=== PATIENT | female | born 1945 | race Two or more races ===

== ENCOUNTER 2017-09-13 23:01 | Emergency (ER) | payer MEDICAID ==
[~2017-09-13] VITALS: Ht 157.5 cm; Wt 56.7 kg
[2017-09-13 23:30] VITALS: BP 225/88
--- NOTE | 2017-09-13 23:59 | Emergency Room Report ---
History of Present Illness General Chief Complaint: Abdominal Pain Source: Patient, Family Member Present Illness HPI 72-year-old female with history of end-stage renal disease on dialysis Friday, last dialysis Friday, p/w abdominal pain and diarrhea for 4 days. Patient points to epigastric region, burning, also radiating to back,, intermittent. No relieving or exacerbating factors some nausea no vomiting Multiple episodes of watery diarrhea, 1 episode of bloody mucus Has had a history of cholecystectomy. Patient states that she has had transabdominal pain multiple times in the past. No recent antibiotics or recent travel Allergies: Coded Allergies: PENICILLINS (Verified Allergy, Unknown, 09/13/17) Patient History Past Medical History: see triage record Past Surgical History: none Pertinent Family History: none Now: No : 8 Para: 8 Reviewed Nursing Documentation: PMH: Agreed; PSxH: Agreed Nursing Documentation-PMH Hx Cardiac Problems: No Hx Hypertension: Yes Hx Diabetes: Yes Hx Dialysis: Yes - M/W/F Review of Systems All Other Systems: negative except mentioned in HPI Physical Exam Vital Signs Date Time Temp Pulse Resp B/P (MAP) Pulse Ox O2 Delivery O2 Flow Rate FiO2 09/13/17 23:11 98.5 84 18 229/82 92 Room Air 98.4 Sp02 EP Interpretation: reviewed, normal General Appearance: alert, GCS 15, non-toxic, moderate distress Head: normocephalic, atraumatic Eyes: bilateral eye normal inspection, bilateral eye PERRL, bilateral eye EOMI ENT: normal ENT inspection, normal pharynx, normal voice, moist mucus membranes Neck: normal inspection, full range of motion, supple Respiratory: normal inspection, lungs clear, normal breath sounds, no respiratory distress, no retraction, no wheezing, speaking full sentences, chest symmetrical Cardiovascular #1: normal inspection, regular rate, rhythm, no edema, normal capillary refill Cardiovascular #2: 2+ radial (R), 2+ radial (L) Gastrointestinal: other - Epigastric tenderness, left lower quadrant tenderness , no guarding no rebound, hyperactive bowel sounds Musculoskeletal: normal inspection, back normal, normal range of motion, non- tender Neurologic: normal inspection, alert, oriented x3, responsive, motor strength/ tone normal, sensory intact, normal gait, speech normal Psychiatric: normal inspection, judgement/insight normal, memory normal Skin: normal inspection, normal color, no rash, warm/dry, well hydrated, normal turgor Medical Decision Making Diagnostic Impression: Primary Impression: Abdominal pain ER Course 72-year-old female with abdominal pain Differential Diagnosis: Gastritis, gastroenteritis, cholecystitis, appendicitis, diverticulitis, SBO, mesenteric ischemia, cardiac, UTI/pyelo Plan: Basic labs, ua, ekg pain control, IVF CT abdopelvis ER course: Pain improved. Repeat abdominal exam is nontender. Ct neg Pt with high bp tx with hydralazine although pt asymptomatic, likely high baseline 2/2 to esrd dc home Disposition: Patient is to be discharged to home. Patient is instructed to follow up with their primary care doctor within 5 days. Strict return precautions discussed with patient such as fever, chills, worsening/severe abdominal pain, nausea, vomiting, black or bloody stools, which may indicate severe illness. Patient verbalizes understanding and agrees with plan. Please note that this Emergency Department Report was dictated using [employer] technology software, occasionally this can lead to erroneous entry secondary to interpretation by the dictation equipment EKG Diagnostic Results EP Interpretation: Yes Rate: normal Rhythm: NSR ST Segments: No acute changes ASA given to patient: No Rhythm Strip EP Interpretation: Yes Rate: 70 Rhythm: NSR, no PVCs, no ectopy Laboratory Tests Test 09/13/17 23:27 09/13/17 23:30 09/13/17 23:50 Lactic Acid Level 1.30 mmol/L (0.66-2.22) Urine Color Pale yellow Urine Appearance Clear Urine pH 9 (4.5-8.0) Urine Specific [place] 1.015 (1.005-1.035) Urine Protein 3+ (NEGATIVE) H Urine Glucose (UA) 2+ (NEGATIVE) H Urine Ketones Negative (NEGATIVE) Urine Occult Blood 2+ (NEGATIVE) H Urine Nitrite Negative (NEGATIVE) Urine Bilirubin Negative (NEGATIVE) Urine Urobilinogen Normal MG/DL (0.0-1.0) Urine Leukocyte Esterase 1+ (NEGATIVE) H Urine RBC 5-10 /HPF (0 - 2) H Urine WBC 2-4 /HPF (0 - 2) Urine Squamous Epithelial Cells Occasional /LPF Urine Bacteria Few /HPF (NONE) White Blood Count 4.7 K/UL (4.8-10.8) L Red Blood Count 4.37 M/UL (4.20-5.40) Hemoglobin 12.6 G/DL (12.0-16.0) Hematocrit 38.8 % (37.0-47.0) Mean Corpuscular Volume 89 FL (80-99) Mean Corpuscular Hemoglobin 28.8 PG (27.0-31.0) Mean Corpuscular Hemoglobin Concent 32.4 G/DL (32.0-36.0) Red Cell Distribution Width 13.3 % (11.6-14.8) Platelet Count 194 K/UL (150-450) Mean Platelet Volume 7.8 FL (6.5-10.1) Neutrophils (%) (Auto) 58.7 % (45.0-75.0) Lymphocytes (%) (Auto) 27.2 % (20.0-45.0) Monocytes (%) (Auto) 8.6 % (1.0-10.0) Eosinophils (%) (Auto) 4.3 % (0.0-3.0) H Basophils (%) (Auto) 1.1 % (0.0-2.0) Sodium Level 140 MMOL/L (136-145) Potassium Level 4.2 MMOL/L (3.5-5.1) Chloride Level 102 MMOL/L (98-107) Carbon Dioxide Level 29 MMOL/L (21-32) Anion Gap 9 mmol/L (5-15) Blood Urea Nitrogen 24 mg/dL (7-18) H Creatinine 5.9 MG/DL (0.55-1.30) H Estimate Glomerular Filtration Rate mL/min (>60) Glucose Level 204 MG/DL (74-106) H Calcium Level 9.1 MG/DL (8.5-10.1) Total Bilirubin 0.4 MG/DL (0.2-1.0) Aspartate Amino Transferase (AST) 14 U/L (15-37) L Alanine Aminotransferase (ALT) 14 U/L (12-78) Alkaline Phosphatase 143 U/L (46-116) H Total Creatine Kinase 42 U/L (26-308) Troponin I 0.014 ng/mL (0.000-0.056) Pro-B-Type Natriuretic Peptide 57454 pg/mL (0-125) H Total Protein 7.2 G/DL (6.4-8.2) Albumin 3.4 G/DL (3.4-5.0) Globulin 3.8 g/dL Albumin/Globulin Ratio 0.9 (1.0-2.7) L CT/MRI/US Diagnostic Results CT/MRI/US Diagnostic Results : Imaging Test Ordered: CT ABDO PELVI Impression CT ABDOMEN & PELVIS Without Contrast: No appendicitis, SBO, or diverticulitis. Small free fluid. No hydronephrosis or ureteral calculus. Mildly thickened bladder which may be underdistention versus cystitis. Absent gallbladder. No radiopaque choledocholithiasis. Pancreatic postop changes. Small pleural effusions. Last Vital Signs Date Time Temp Pulse Resp B/P (MAP) Pulse Ox O2 Delivery O2 Flow Rate FiO2 09/13/17 23:11 98.5 84 18 229/82 92 Room Air 98.4 Disposition: HOME, SELF-CARE Condition: Improved Xi Jackson M.D. Sep 13, 2017 23:59
[2017-09-14] MEDS ORDERED: Morphine Sulfate 4mg/ml Inj IVP ONE
[2017-09-14 00:24] LABS: BASOPHILS % (AUTO) 1.1 % (0.0-2.0); EOSINOPHILS % (AUTO) 4.3 % (0.0-3.0); HEMATOCRIT 38.8 % (37.0-47.0); HEMOGLOBIN 12.6 G/DL (12.0-16.0); LYMPHOCYTES % (AUTO) 27.2 % (20.0-45.0); MEAN CORPUSCULAR VOLUME 89 FL (80-99); MONOCYTES % (AUTO) 8.6 % (1.0-10.0); NEUTROPHILS % (AUTO) 58.7 % (45.0-75.0); PLATELET COUNT 194 K/UL (150-450); RED BLOOD COUNT 4.37 M/UL (4.20-5.40); RED CELL DISTRIBUTION WIDTH 13.3 % (11.6-14.8); WHITE BLOOD COUNT 4.7 K/UL (4.8-10.8)
[2017-09-14 00:25] LABS: APPEARANCE,URINE CLEAR; BILIRUBIN, URINE NEGATIVE (NEGATIVE); COLOR,URINE PALE YELLOW; GLUCOSE, URINE (UA) 2+ (NEGATIVE); KETONES,URINE NEGATIVE (NEGATIVE); LEUKOCYTE ESTERASE ,URINE 1+ (NEGATIVE); NITRITE,URINE NEGATIVE (NEGATIVE); PH,URINE 9 (4.5-8.0); PROTEIN,URINE 3+ (NEGATIVE); UROBILINOGEN,URINE NORMAL MG/DL (0.0-1.0)
[2017-09-14 00:30] VITALS: BP 235/71
[2017-09-14 00:39] LABS: ANION GAP 9 mmol/L (5-15); BLOOD UREA NITROGEN 24 mg/dL (7-18); CALCIUM 9.1 MG/DL (8.5-10.1); CARBON DIOXIDE 29 MMOL/L (21-32); CHLORIDE 102 MMOL/L (98-107); CREATININE 5.9 MG/DL (0.55-1.30); POTASSIUM 4.2 MMOL/L (3.5-5.1); SODIUM 140 MMOL/L (136-145)
[2017-09-14 00:43] LABS: ALANINE AMINOTRANSFERASE 14 U/L (12-78); ALBUMIN 3.4 G/DL (3.4-5.0); ALBUMIN/GLOBULIN RATIO 0.9 (1.0-2.7); ALKALINE PHOSPHATASE 143 U/L (46-116); ASPARTATE AMINO TRANSFERASE 14 U/L (15-37); BILIRUBIN,TOTAL 0.4 MG/DL (0.2-1.0); CREATINE KINASE 42 U/L (26-308)
[2017-09-14] MEDS ORDERED: PEPCID40 MG PO (01:19)
[2017-09-14 01:30] VITALS: BP 205/68
[2017-09-14] MEDS ORDERED: Dicyclomine HCl 10mg/5ml oral soln ORAL ONE (01:30)
[2017-09-14] MEDS ORDERED: Mylanta II UD 30ml ORAL ONE (01:30)
[2017-09-14] MEDS ORDERED: Lidocaine 2% Visc 15ml soln ORAL ONE (01:30)
[2017-09-14] MEDS ORDERED: ZOFRAN ODT4 MG ORAL (02:24)
[2017-09-14 02:25] VITALS: BP 210/70
[2017-09-14 02:37] VITALS: BP 210/70
--- NOTE | 2017-09-14 11:02 | Diagnostic Imaging Report ---
Indication: Left-sided abdominal pain, pressure in back Technique: Spiral acquisitions obtained through the abdomen and pelvis. No oral contrast utilized, per emergency room physician request No IV contrast utilized, per emergency room physician request.. Multiplanar reconstructions were generated. Total dose length product 645.46 mGycm. CTDIvol(s) 13.88 mGy. Dose reduction achieved using automated exposure control Comparison: None Findings: Normal appendix. There is questionably wall thickening of the distal sigmoid colon. No definite evidence of diverticulosis or diverticulitis. No small bowel distention. No free or loculated intraperitoneal air is evident. There is a small amount of fluid within the pelvis.. The distal esophagus, stomach, duodenum are unremarkable. Lack of IV contrast limits assessment of the solid organs. The liver is unremarkable. The gallbladder is not visualized, suspect surgically absent. No biliary ductal dilatation. The pancreatic body and tail are not evident, surgically resected. An eggshell calcification is seen in the expected region of the pancreatic tail. The spleen, adrenals are unremarkable. The kidneys are atrophic bilaterally, demonstrate nonspecific perinephric fat stranding. No retroperitoneal or mesenteric mass or adenopathy. No pelvic mass or adenopathy. There are uterine arcuate artery calcifications. The included lung bases demonstrate posterior dependent atelectatic changes. There are bilateral pleural effusions. The bones demonstrate degenerative spondylosis changes. Impression: Bilateral small pleural effusions. Resultant compressive and dependent pulmonary atelectasis Equivocal mild distal colon wall thickening, if real could indicate mild colitis changes Trace free intraperitoneal fluid within the pelvis. Nonspecific, but not physiologic in a postmenopausal female No acute abdominal process otherwise Evidence of prior distal pancreatectomy Evidence of prior cholecystectomy Eggshell calcification in the pancreatic surgical bed, probably postinflammatory Atrophic bilateral kidneys Other findings as noted including arcuate artery uterine calcifications, degenerative spondylosis. This agrees with the preliminary interpretation provided overnight by [facility] teleradiology service. The CT scanner at is accredited by the [employer] and the scans are performed using protocols designed to limit radiation exposure to as low as reasonably achievable to attain images of sufficient resolution adequate for diagnostic evaluation.
--- NOTE | 2017-09-14 11:04 | Diagnostic Imaging Report ---
Indication: Chest pain Technique: One view of the chest Comparison: none Findings: There is bilateral interstitial edema. The heart is borderline enlarged. No definite effusions; small pleural effusions described on recent CT scan are not visible on chest radiograph. No definite focal airspace consolidation. The aorta is tortuous and calcified. Calcification projecting in the left upper quadrant is also seen on CT scan. Impression: Mild bilateral interstitial edema
--- NOTE | 2017-09-15 21:24 | Cardiology Report ---
APPROVED REPORT EKG Measurement Heart [id number] CT [id number] [id number] Normal sinus rhythm Cannot rule out Anterior infarct, age undetermined Abnormal ECG
== END 2017-09-14 02:37 | disposition home or self-care (01) ==
LOC: EMR 23:55
DX: R10.9 Unspecified abdominal pain (principal); E11.22 Type 2 diabetes mellitus with diabetic chronic kidney disease; I12.0 Hypertensive chronic kidney disease with stage 5 chronic kidney disease or end stage renal disease; N18.6 End stage renal disease; Z99.2 Dependence on renal dialysis; Z88.0 Allergy status to penicillin
CPT/HCPCS: 36415; 71045; 74176; 80053; 81003; 82550; 83605; 83880; 84484; 85025; 87040; 93005; 96374; 96375; 99284; J0360; J2270; J2405; S0028

== ENCOUNTER 2018-03-17 12:57 | Inpatient (IN) | payer MEDICAID ==
[~2018-03-17] VITALS: Ht 162.6 cm; Wt 52.2 kg
[~2018-03-17 12:57] MED LIST: PEPCID40 MG PO; ZOFRAN ODT4 MG ORAL
[2018-03-17] MEDS ORDERED: HYDRALAZINE HCL50 MG ORAL (13:15)
[2018-03-17] MEDS ORDERED: NIFEDIPINE ER60 M3 ORAL (13:15)
[2018-03-17] MEDS ORDERED: METOPROLOL SUCC25 MG ORAL (13:15)
--- NOTE | 2018-03-17 13:38 | Emergency Room Report ---
History of Present Illness General Chief Complaint: Hypertension Source: Patient, Family Member (Henrietta Rock DO) Present Illness HPI Patient present with complaints of ongoing high blood pressure Patient was recently hospitalized at another facility She had alteration of her current medications including increase of hydralazine Now she was having increased headaches dizziness blood pressure was remaining elevated Patient has dialysis Friday's Did have a full dialysis on Friday presents today with increased blood pressure (Henrietta Rock DO) Allergies: Coded Allergies: PENICILLINS (Verified Allergy, Unknown, 09/13/17) Patient History Past Medical History: see triage record Pertinent Family History: none Last Menstrual Period: na Reviewed Nursing Documentation: PMH: Agreed; PSxH: Agreed (Henrietta Rock DO) Nursing Documentation-PMH Past Medical History: No History, Except For Hx Cardiac Problems: No Hx Hypertension: Yes Hx Diabetes: Yes Hx Dialysis: Yes - M/W/F (Henrietta Rock DO) Review of Systems All Other Systems: negative except mentioned in HPI (Henrietta Rock DO) Physical Exam Vital Signs Date Time Temp Pulse Resp B/P (MAP) Pulse Ox O2 Delivery O2 Flow Rate FiO2 03/17/18 13:00 98.8 77 18 219/84 98 Room Air 98.8 Sp02 EP Interpretation: reviewed, normal General Appearance: well appearing, no apparent distress Head: normocephalic, atraumatic Eyes: bilateral eye PERRL, bilateral eye EOMI ENT: hearing grossly normal, normal pharynx, TMs + canals normal, uvula midline Neck: full range of motion, supple, no meningismus, no bony tend Respiratory: lungs clear, normal breath sounds, no rhonchi, no respiratory distress, no retraction, no accessory muscle use Cardiovascular #1: normal peripheral pulses, regular rate, rhythm, no edema, no gallop, no JVD, no murmur Gastrointestinal: normal bowel sounds, non tender, soft, no mass, no organomegaly, non-distended, no guarding, no hernia, no pulsatile mass, no rebound Genitourinary: no CVA tenderness Musculoskeletal: normal inspection Neurologic: oriented x3, responsive, building cleaning supervisor III-XII nml as tested, motor strength/ tone normal, sensory intact Psychiatric: mood/affect normal Skin: normal color, no rash, warm/dry, palpation normal, other - Dialysis shunt right upper arm AV fistula Lymphatic: normal inspection, no adenopathy (Henrietta Rock DO) Procedures Critical Care Time Critical Care Time 40 minutes for hypertensive emergency, requiring acute care and multiple revaluation, not including any procedural time (Henrietta Rock DO) Critical Care Time Patient had a critical medical condition which untreated could potentially result in life or limb threatening injury. Total critical care time excluding procedures was approximately 45 minutes. (Bo Byrne MD) Medical Decision Making Diagnostic Impression: Primary Impression: Hypertensive urgency, malignant Additional Impression: Renal failure ER Course Patient is a fairly complex patient with multiple differential to consideration including but not limited to cardiac cardiopulmonary and vascular emergencies Given the patient's headache there are no focal findings patient has appropriate neurological exam CT imaging has not been obtained emergently However patient's blood pressure requires acute intervention (Henrietta Rock DO) ER Course Patient was seen by Dr. Henrietta Goldman and signed out to me for final disposition. I have also evaluated the patient. Patient presents emergency department today with a headache and elevated blood pressure. Apparently patient has been admitted in the past but was given oral medications which unfortunately is not controlled blood pressure. Patient blood pressure was over 200 on arrival. Patient has received multiple doses of hydralazine and blood pressure remained high. We'll continue to try to control patient's blood pressure however patient will require admission. Patient's head CT was negative per laboratory workup is consistent renal failure. Given the patient' s unassigned patient does not have a primary care physician here. Dr. Henrietta Johnson nutrition professor. We have contacted Dr. Henrietta Johnson for admission on the patient. Labs Test 03/17/18 13:40 03/17/18 14:43 White Blood Count 6.1 K/UL (4.8-10.8) Red Blood Count 4.32 M/UL (4.20-5.40) Hemoglobin 12.3 G/DL (12.0-16.0) Hematocrit 38.1 % (37.0-47.0) Mean Corpuscular Volume 88 FL (80-99) Mean Corpuscular Hemoglobin 28.5 PG (27.0-31.0) Mean Corpuscular Hemoglobin Concent 32.3 G/DL (32.0-36.0) Red Cell Distribution Width 13.1 % (11.6-14.8) Platelet Count 182 K/UL (150-450) Mean Platelet Volume 7.9 FL (6.5-10.1) Neutrophils (%) (Auto) 69.7 % (45.0-75.0) Lymphocytes (%) (Auto) 19.2 % (20.0-45.0) Monocytes (%) (Auto) 7.2 % (1.0-10.0) Eosinophils (%) (Auto) 2.9 % (0.0-3.0) Basophils (%) (Auto) 1.0 % (0.0-2.0) Troponin I 0.013 ng/mL (0.000-0.056) Sodium Level 138 MMOL/L (136-145) Potassium Level 5.4 MMOL/L (3.5-5.1) Chloride Level 101 MMOL/L (98-107) Carbon Dioxide Level 25 MMOL/L (21-32) Anion Gap 12 mmol/L (5-15) Blood Urea Nitrogen 33 mg/dL (7-18) Creatinine 5.6 MG/DL (0.55-1.30) Estimat Glomerular Filtration Rate mL/min (>60) Glucose Level 131 MG/DL (74-106) Calcium Level 10.1 MG/DL (8.5-10.1) (Bo Byrne MD) CT/MRI/US Diagnostic Results CT/MRI/US Diagnostic Results : Imaging Test Ordered: Head CT: Negative (Bo Byrne MD) Last Vital Signs Date Time Temp Pulse Resp B/P (MAP) Pulse Ox O2 Delivery O2 Flow Rate FiO2 03/17/18 13:00 98.8 77 18 219/84 98 Room Air 98.8 (Henrietta Rock DO) Status: improved (Bo Byrne MD) Disposition: ADMITTED INPATIENT Condition: Serious Henrietta Rock DO Mar 17, 2018 13:38 Bo Byrne MD Mar 17, 2018 15:37
[2018-03-17] MEDS ORDERED: Nitroglycerin 2% oint pkt TOPIC ONE (13:45)
--- NOTE | 2018-03-17 14:02 | Diagnostic Imaging Report ---
Indication: Chest pain Technique: One view of the chest Comparison: 09/14/2017 Findings: The heart is borderline enlarged. The lungs and pleural spaces are clear. Previously demonstrated interstitial edema is no longer evident Impression: Cardiomegaly. No acute process
[2018-03-17 14:04] VITALS: BP 237/61
[2018-03-17 14:16] LABS: EOSINOPHILS % (AUTO) 2.9 % (0.0-3.0); HEMATOCRIT 38.1 % (37.0-47.0); HEMOGLOBIN 12.3 G/DL (12.0-16.0); LYMPHOCYTES % (AUTO) 19.2 % (20.0-45.0); MEAN CORPUSCULAR VOLUME 88 FL (80-99); MONOCYTES % (AUTO) 7.2 % (1.0-10.0); NEUTROPHILS % (AUTO) 69.7 % (45.0-75.0); PLATELET COUNT 182 K/UL (150-450); RED BLOOD COUNT 4.32 M/UL (4.20-5.40); RED CELL DISTRIBUTION WIDTH 13.1 % (11.6-14.8); WHITE BLOOD COUNT 6.1 K/UL (4.8-10.8)
--- NOTE | 2018-03-17 15:08 | Diagnostic Imaging Report ---
Indications: Headache and dizziness Technique: Spiral acquisitions obtained through the brain. Angled axial and coronal 5 x 5 mm slices were reconstructed. Total dose length product 1357.97 mGycm. CTDI vol(s) 70.38 mGy. Dose reduction achieved using automated exposure control Comparison: None. Findings: Old lacunar infarct versus prominent perivascular space (favor the latter) is seen in the posterior lentiform nucleus on the right. There is mild age-related enlargement of the ventricles and extra axial CSF spaces. Normal calderon-white differentiation. No acute intracranial hemorrhage or edema. No mass effect nor midline shift. Visualized orbits and sinuses are unremarkable. The calvarium is intact. Impression: Age-related changes, as described Old lacunar infarct versus, more likely, prominent perivascular space in the left basal ganglia region Negative for acute intracranial bleed or mass effect The CT scanner at [facility] is accredited by the [employer] and the scans are performed using protocols designed to limit radiation exposure to as low as reasonably achievable to attain images of sufficient resolution adequate for diagnostic evaluation.
[2018-03-17 15:22] LABS: ANION GAP 12 mmol/L (5-15); BLOOD UREA NITROGEN 33 mg/dL (7-18); CALCIUM 10.1 MG/DL (8.5-10.1); CARBON DIOXIDE 25 MMOL/L (21-32); CHLORIDE 101 MMOL/L (98-107); CREATININE 5.6 MG/DL (0.55-1.30); POTASSIUM 5.4 MMOL/L (3.5-5.1); SODIUM 138 MMOL/L (136-145)
[2018-03-17 15:36] LABS: ALANINE AMINOTRANSFERASE 6 U/L (12-78); ALBUMIN 4.1 G/DL (3.4-5.0); ALKALINE PHOSPHATASE 145 U/L (46-116); ASPARTATE AMINO TRANSFERASE 12 U/L (15-37); BILIRUBIN,TOTAL 0.3 MG/DL (0.2-1.0); CKMB 0.8 NG/ML (0.0-3.6); CREATINE KINASE 42 U/L (26-308)
[2018-03-17 15:57] VITALS: BP 189/51
--- NOTE | 2018-03-17 16:43 | Consultation ---
Consult Note Consult Note Chief Complaint: Hypertension Patient present with complaints of ongoing high blood pressure Patient was recently hospitalized at another facility She had alteration of her current medications including increase of hydralazine Now she was having increased headaches dizziness blood pressure was remaining elevated Patient has dialysis Friday's Did have a full dialysis on Friday presents today with increased blood pressure Coded Allergies: PENICILLINS (Verified Allergy, Unknown, 09/13/17) Past Medical History: No History, Except For Hx Cardiac Problems: No Hx Hypertension: Yes Hx Diabetes: Yes Hx Dialysis: Yes - M/W/F Assessment/Plan HTN OOC ESRD BP Meds HD in am Per orders Hermilo Lauren MD Mar 17, 2018 16:43
[2018-03-17] MEDS ORDERED: Minoxidil 2.5mg tab ORAL PRN (16:45)
[2018-03-17 17:23] VITALS: BP 172/52
[2018-03-17] MEDS ORDERED: METOPROLOL TART25 MG ORAL (17:32)
[2018-03-17] MEDS ORDERED: ASPIR 8181 MG ORAL (17:37)
[2018-03-17] MEDS ORDERED: Vancomycin 1 GM in D5W 275 ML IVPB SCH (18:00)
[2018-03-17 20:00] VITALS: BP 141/59
[2018-03-17 22:00] VITALS: BP 142/87
[2018-03-17] MEDS: HydrALAZINE 50mg tab ORAL SCH (22:06)
--- NOTE | 2018-03-17 23:04 | Cardiology Progress Note ---
Assessment/Plan Assessment/Plan The patient is seen and examined, full consult report is dictated. Objective Last 24 Hour Vital Signs Date Time Temp Pulse Resp B/P (MAP) Pulse Ox O2 Delivery O2 Flow Rate FiO2 03/17/18 22:06 142/57 03/17/18 22:00 84 142/87 (105) 03/17/18 20:48 88 141/59 03/17/18 20:00 97.5 88 21 141/59 (86) 97.5 03/17/18 20:00 89 03/17/18 18:47 98.6 93 17 172/52 99 Room Air 98.6 03/17/18 17:23 98.6 93 17 172/52 99 Room Air 98.6 03/17/18 16:56 195/65 03/17/18 16:41 206/110 03/17/18 15:57 98.8 87 15 189/51 99 Room Air 98.8 03/17/18 15:15 210/63 03/17/18 14:37 210/65 03/17/18 14:04 98.8 85 15 237/61 98 Room Air 98.8 03/17/18 14:03 77 18 Room Air 03/17/18 13:38 219/84 03/17/18 13:00 98.8 77 18 219/84 98 Room Air 98.8 Laboratory Tests Test 03/17/18 13:40 03/17/18 14:43 03/17/18 17:20 White Blood Count 6.1 K/UL (4.8-10.8) Red Blood Count 4.32 M/UL (4.20-5.40) Hemoglobin 12.3 G/DL (12.0-16.0) Hematocrit 38.1 % (37.0-47.0) Mean Corpuscular Volume 88 FL (80-99) Mean Corpuscular Hemoglobin 28.5 PG (27.0-31.0) Mean Corpuscular Hemoglobin Concent 32.3 G/DL (32.0-36.0) Red Cell Distribution Width 13.1 % (11.6-14.8) Platelet Count 182 K/UL (150-450) Mean Platelet Volume 7.9 FL (6.5-10.1) Neutrophils (%) (Auto) 69.7 % (45.0-75.0) Lymphocytes (%) (Auto) 19.2 % (20.0-45.0) L Monocytes (%) (Auto) 7.2 % (1.0-10.0) Eosinophils (%) (Auto) 2.9 % (0.0-3.0) Basophils (%) (Auto) 1.0 % (0.0-2.0) Troponin I 0.013 ng/mL (0.000-0.056) C-Reactive Protein, Quantitative < 0.4 mg/dL (0.00-0.90) Sodium Level 138 MMOL/L (136-145) Potassium Level 5.4 MMOL/L (3.5-5.1) H Chloride Level 101 MMOL/L (98-107) Carbon Dioxide Level 25 MMOL/L (21-32) Anion Gap 12 mmol/L (5-15) Blood Urea Nitrogen 33 mg/dL (7-18) H Creatinine 5.6 MG/DL (0.55-1.30) H Estimat Glomerular Filtration Rate mL/min (>60) Glucose Level 131 MG/DL (74-106) H Calcium Level 10.1 MG/DL (8.5-10.1) Total Bilirubin 0.3 MG/DL (0.2-1.0) Aspartate Amino Transf (AST/SGOT) 12 U/L (15-37) L Alanine Aminotransferase (ALT/SGPT) 6 U/L (12-78) L Alkaline Phosphatase 145 U/L (46-116) H Total Creatine Kinase 42 U/L (26-308) Creatine Kinase MB 0.8 NG/ML (0.0-3.6) Creatine Kinase MB Relative Index 1.9 Total Protein 8.4 G/DL (6.4-8.2) H Albumin 4.1 G/DL (3.4-5.0) Globulin 4.3 g/dL Albumin/Globulin Ratio 1.0 (1.0-2.7) Lipase 441 U/L (73-393) H Lactic Acid Level 0.70 mmol/L (0.4-2.0) Van Ingram MD Mar 17, 2018 23:04
[2018-03-17] MEDS ORDERED: Acetaminophen 500mg (ES) tab ORAL PRN (23:15)
[2018-03-17] MEDS ORDERED: ATORVASTATIN CA40 MG ORAL (23:35)
[2018-03-17] MEDS ORDERED: PEPCID AC20 M2 PO (23:36)
[2018-03-18] VITALS: BP 149/66
--- NOTE | 2018-03-18 02:15 | Consultation ---
DATE OF CONSULTATION: 03/17/2018 CARDIOLOGY CONSULTATION CONSULTING PHYSICIAN: Van Ingram M.D. REFERRING PHYSICIAN: Dr. Henrietta Desir. REASON FOR CONSULTATION: Management of accelerated hypertension. HISTORY OF PRESENT ILLNESS: The patient is a very unfortunate 72-year-old lady who presents to the hospital with complaints of dizziness, headaches, and elevated blood pressure. The patient states that her blood pressure has been remained elevated despite receiving hemodialysis. She has history of end-stage renal disease, on hemodialysis on Mondays, Wednesdays, and Fridays. The patient was recently admitted to an outside facility for this same issue. She states that her blood pressure medications include hydralazine 50 mg 3 times a day, metoprolol 25 mg twice daily, and nifedipine extended release 60 mg p.o. daily. She has been compliant with her hemodialysis. She denies any prior history of coronary artery disease, congestive heart failure, or cardiac arrhythmia. PAST MEDICAL HISTORY: End-stage renal disease, hypertension, and diabetes mellitus. PAST FAMILY HISTORY: None. ALLERGIES: Penicillin. SOCIAL HISTORY: Denies any tobacco, alcohol, or illicit drug use. MEDICATIONS: List of medication including aspirin 81 mg p.o. daily, hydralazine 50 mg p.o. three times daily, metoprolol 25 mg twice daily, and nifedipine ER 60 mg p.o. daily. REVIEW OF SYSTEMS: HEENT: She complains of headache, dizziness, and lightheadedness. CONSTITUTIONAL: Denies any fever, chills, night sweats, or weight loss. CARDIOVASCULAR: Denies any chest pain, shortness of breath, PND, orthopnea, leg swelling, syncope, or palpitation. PULMONARY: Denies any cough, hemoptysis, or wheezing. GASTROINTESTINAL: Denies any nausea, vomiting, diarrhea, constipation, abdominal pain, or GI bleed. GENITOURINARY: On hemodialysis on Mondays, Wednesdays, and Fridays. NEUROLOGY: Denies any motor dysfunction, sensory deficit, or altered speech. PHYSICAL EXAMINATION: VITAL SIGNS: Blood pressure at time of arrival to the hospital was 219/84 mmHg, pulse of 77, respirations of 18, temperature of 98.8 degrees Fahrenheit, and O2 saturation 98% on room air. GENERAL: The patient is a very unfortunate 72-year-old female who is awake and alert x4. HEENT: Atraumatic and normocephalic. Anicteric. Pupils are equal, round, and reactive to light and accommodation. Extraocular muscles intact. NECK: JVP is less than 5 centimeter. No carotid bruit. Carotid upstroke is 2+ bilaterally. CARDIOVASCULAR: Normal S1 and S2. Regular rate and rhythm. No murmurs, gallops, or rubs. PMI is at fourth intercostal space in the midclavicular. LUNGS: Clear to auscultation bilaterally. ABDOMEN: Soft, nontender, and nondistended. No hepatosplenomegaly. Positive bowel sounds. EXTREMITIES: No evidence of edema, clubbing, or cyanosis. There is presence of a right upper arm AV fistula ____. LABORATORY FINDINGS: Sodium 138, potassium 5.4, chloride 101, bicarbonate 25, BUN 33, creatinine of 5.6, glucose is 131, calcium is 10.1, and troponin I is 0.013. WBC 6.1, hemoglobin 12.3, hematocrit 38.1, and platelet count is 182,000. Chest x-ray showed cardiomegaly, but no acute cardiopulmonary disease. CT of head showed old lacunar infarct versus prominent prevascular space in the left basal ganglia region. Negative for acute intracranial bleed or mass effect. ASSESSMENT AND PLAN: 1. The patient is a very unfortunate 72-year-old female, seen in Cardiology consultation at the request of Dr. Desir. 2. Accelerated hypertension, most likely due to renal parenchymal disease. We would like to continue the patient's nifedipine, metoprolol, and hydralazine. We will adjust the dose of these medications. In addition, the patient was started on clonidine and minoxidil. Follow the blood pressure during the stay. 3. We will obtain 2D echocardiography for assessment of LV systolic and diastolic function. 4. End-stage renal disease, on hemodialysis 3 days a week. 5. History of diabetes mellitus. The patient will require to be on aspirin and statins. Lipid panel will be done in the morning. 6. I would like to thank, Dr. Desir for allowing me to participate in the care of this patient. Van Ingram M.D. DR: SULAIMAN JOB#: [id number] CC:
[2018-03-18 04:00] VITALS: BP 119/46
[2018-03-18] MEDS: HydrALAZINE 50mg tab ORAL SCH (05:30)
[2018-03-18 06:33] LABS: BASOPHILS % (AUTO) 1.1 % (0.0-2.0); EOSINOPHILS % (AUTO) 2.3 % (0.0-3.0); HEMATOCRIT 36.1 % (37.0-47.0); HEMOGLOBIN 11.9 G/DL (12.0-16.0); LYMPHOCYTES % (AUTO) 25.8 % (20.0-45.0); MEAN CORPUSCULAR VOLUME 88 FL (80-99); MONOCYTES % (AUTO) 8.3 % (1.0-10.0); NEUTROPHILS % (AUTO) 62.6 % (45.0-75.0); PLATELET COUNT 219 K/UL (150-450); RED BLOOD COUNT 4.09 M/UL (4.20-5.40); WHITE BLOOD COUNT 5.8 K/UL (4.8-10.8)
[2018-03-18 07:28] LABS: ALANINE AMINOTRANSFERASE 14 U/L (12-78); ALBUMIN 3.3 G/DL (3.4-5.0); ALBUMIN/GLOBULIN RATIO 0.9 (1.0-2.7); ALKALINE PHOSPHATASE 119 U/L (46-116); ANION GAP 9 mmol/L (5-15); ASPARTATE AMINO TRANSFERASE 10 U/L (15-37); BILIRUBIN,TOTAL 0.4 MG/DL (0.2-1.0); BLOOD UREA NITROGEN 40 mg/dL (7-18); CALCIUM 9.6 MG/DL (8.5-10.1); CARBON DIOXIDE 26 MMOL/L (21-32); CHLORIDE 101 MMOL/L (98-107); CHOLESTEROL 134 MG/DL (< 200); CREATININE 6.7 MG/DL (0.55-1.30); FERRITIN 1052 NG/ML (8-388); GAMMA GLUTAMYL TRANSPEPTIDASE 25 U/L (5-85); HDL CHOLESTEROL 36 MG/DL (40-60); PHOSPHORUS 4.8 MG/DL (2.5-4.9); POTASSIUM 5.3 MMOL/L (3.5-5.1); SODIUM 136 MMOL/L (136-145); TRIGLYCERIDES 141 MG/DL (30-150)
[2018-03-18 07:43] LABS: % IRON SATURATION 45 % (15-50); IRON 89 ug/dL (50-175); TOTAL IRON BINDING CAPACITY 196 ug/dL (250-450)
[2018-03-18 08:00] VITALS: BP 133/57
[2018-03-18] MEDS: Aspirin Baby 81mg ORAL SCH (09:30)
[2018-03-18 12:00] VITALS: BP 134/50
[2018-03-18] MEDS: HydrALAZINE 25mg tab ORAL SCH ×2 (14:00→22:39)
--- NOTE | 2018-03-18 15:45 | Cardiology Report ---
APPROVED REPORT EXAM: Two-dimensional and M-mode echocardiogram with Doppler and color Doppler. INDICATION HYPERTENSIVE HEART DIS M-Mode DIMENSIONS IVSd1.1 (0.7-1.1cm)Left Atrium (MM)2.9 (1.6-4.0cm) LVDd3.8 (3.5-5.6cm)Aortic Root3.3 (2.0-3.7cm) PWd1.2 (0.7-1.1cm)Aortic Cusp Exc.1.0 (1.5-2.0cm) IVSs1.0 cm LVDs2.3 (2.5-4.0cm) PWs1.6 cm Normal left ventricular chamber size, hyper dynamic systolic function and wall motion. Left ventricular ejection fraction estimated to be 60-65 %. Mild left ventricular hypertrophy by 2-D. No evidence of pericardial effusion. All other cardiac chamber sizes are within normal limits. Focal aortic valve sclerosis with adequate cusp excursion. Mildly Thickened mitral valve leaflets with normal excursion. Mildly Mitral annulus and aortic root calcification. Pulmonic valve not well visualized. Normal tricuspid valve structure. . IVC at normal size with physiologic collapse . A color flow and spectral Doppler study was performed and revealed: No aortic regurgitation. Trace mitral regurgitation. Normal left ventricular diastolic function . Mild tricuspid regurgitation. Tricuspid systolic velocities suggests peak right ventricular systolic pressure of 15 mmHg,
[2018-03-18 16:00] VITALS: BP 123/56
--- NOTE | 2018-03-18 16:11 | Cardiology Report ---
APPROVED REPORT EKG Measurement Heart [id number] Normal sinus rhythm Abnormal ECG
[2018-03-18 20:00] VITALS: BP 140/60
[2018-03-18] MEDS: Atorvastatin 20mg tab ORAL SCH (21:18)
--- NOTE | 2018-03-18 21:26 | Nephrology Progress Note ---
Assessment/Plan Problem List: (1) ESRD (end stage renal disease) on dialysis (2) Hypertensive urgency, malignant Assessment HTN OOC- ESRD Plan BP Meds adjusted HD 03/18 then 03/20 Per orders waiting for cultures normal echo Subjective ROS Limited/Unobtainable: No Objective Objective Last 24 Hour Vital Signs Date Time Temp Pulse Resp B/P (MAP) Pulse Ox O2 Delivery O2 Flow Rate FiO2 03/18/18 21:18 140/89 03/18/18 16:00 98.1 75 20 123/56 (78) 98 98.1 03/18/18 16:00 73 03/18/18 14:29 Room Air 03/18/18 14:00 145/56 03/18/18 14:00 145/56 03/18/18 12:00 71 03/18/18 12:00 97.5 68 20 134/50 (78) 98 97.5 03/18/18 09:00 Room Air 03/18/18 08:00 97.5 71 20 133/57 (82) 99 97.5 03/18/18 08:00 75 03/18/18 05:30 119/46 03/18/18 05:00 119/46 03/18/18 04:00 69 03/18/18 04:00 97.7 68 20 119/46 (70) 98 97.7 03/18/18 00:00 97.5 81 20 149/66 (93) 95 97.5 03/18/18 00:00 84 03/17/18 23:28 144/53 03/17/18 23:00 Room Air 03/17/18 22:06 142/57 03/17/18 22:00 84 142/87 (105) Intake and Output 03/17/18 03/18/18 19:00 07:00 Intake Total 100 ml Output Total 300 ml Balance -200 ml Intake Oral 100 ml Output Urine Total 300 ml # Voids 1 2 Laboratory Tests 03/17/18 23:40: Troponin I 0.034 03/18/18 05:10: White Blood Count 5.8, Red Blood Count 4.09L, Hemoglobin 11.9L, Hematocrit 36.1L , Mean Corpuscular Volume 88, Mean Corpuscular Hemoglobin 29.2, Mean Corpuscular Hemoglobin Concent 33.1, Red Cell Distribution Width 13.0, Platelet Count 219, Mean Platelet Volume 7.4, Neutrophils (%) (Auto) 62.6, Lymphocytes (% ) (Auto) 25.8, Monocytes (%) (Auto) 8.3, Eosinophils (%) (Auto) 2.3, Basophils ( %) (Auto) 1.1, Sodium Level 136, Potassium Level 5.3H, Chloride Level 101, Carbon Dioxide Level 26, Anion Gap 9, Blood Urea Nitrogen 40H, Creatinine 6.7H, Estimat Glomerular Filtration Rate , Glucose Level 122H, Hemoglobin A1c 6.3H, Uric Acid 4.7, Calcium Level 9.6, Phosphorus Level 4.8, Magnesium Level 2.0, Iron Level 89, Total Iron Binding Capacity 196L, Percent Iron Saturation 45, Unsaturated Iron Binding 107L, Ferritin 1052H, Total Bilirubin 0.4, Gamma Glutamyl Transpeptidase 25, Aspartate Amino Transf (AST/SGOT) 10L, Alanine Aminotransferase (ALT/SGPT) 14, Alkaline Phosphatase 119H, Pro-B-Type Natriuretic Peptide [id number], Total Protein 7.0, Albumin 3.3L, Globulin 3.7, Albumin/Globulin Ratio 0.9L, Triglycerides Level 141, Cholesterol Level 134, LDL Cholesterol 70, HDL Cholesterol 36L, Cholesterol/HDL Ratio 3.7, Lipase 129, Vitamin B12 Level 824, Folate 6.0L, Thyroid Stimulating Hormone (TSH) 1.271 Height (Feet): 5 Height (Inches): 4.00 Weight (Pounds): 118 General Appearance: other - feels better Cardiovascular: normal rate Respiratory/Chest: decreased breath sounds Abdomen: soft Hermilo Lauren MD Mar 18, 2018 21:26
--- NOTE | 2018-03-18 23:00 | History and Physical Report ---
DATE OF ADMISSION: 03/17/2018 HISTORY OF PRESENT ILLNESS: The patient has end-stage renal disease, on hemodialysis, comes with hypertensive urgency. Systolic blood pressure is 220/110. The patient also had headache and is going to be admitted to telemetry floor. The patient speaks [place] and is admitted for hypertensive malignancy and the patient has renal failure. The patient also had vomiting as well as nausea for one day. The patient denies vision changes. Denies blurry vision. Denies diplopia. Denies rectal bleeding. Denies abdominal pain. Denies dizziness. PAST MEDICAL HISTORY: Hypertension, hyperlipidemia, GERD, end-stage renal disease on hemodialysis. PAST SURGICAL HISTORY: Cholecystectomy related to dialysis access. MEDICATIONS: Lipitor, aspirin, famotidine, hydralazine, and metoprolol. ALLERGIES: To penicillin. SOCIAL HISTORY: Denies smoking, alcohol, or illicit drugs. FAMILY HISTORY: She does have history of hypertension. REVIEW OF SYSTEMS: HEENT: Denies headaches. Denies shortness of breath. Denies cough. CARDIOVASCULAR: Denies chest pain. Denies orthopnea. GASTROINTESTINAL: Does have nausea and vomiting for one day. Denies rectal bleeding. Denies constipation. Does have headaches. EXTREMITIES: Denies pain in lower extremity. 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 She has headache x1 day. PHYSICAL EXAMINATION: VITAL SIGNS: Temperature is 97.7 degrees, pulse 68, blood pressure is recorded as 119/46, much high initially in the ER. HEENT: PERRLA. NECK: Supple. No lymphadenopathy. CHEST: Clear to auscultation. GASTROINTESTINAL: Soft, nontender, and nondistended. No organomegaly. EXTREMITIES: A 1+ edema. Reflexes on both sides. . LABORATORY DATA: WBC of 6.1, hemoglobin 12.3, and platelets 182,000. Sodium 138, potassium 5.4, BUN of 33, creatinine 5.6 with a glucose 131. ASSESSMENT AND PLAN: Hypertensive malignancy, end-stage renal disease on hemodialysis with headache. I have asked Dr. Lauren and Dr. Ingram see the patient for the treatment of the hypertension and the dialysis orders. Henrietta Desir M.D. DR: Ida JOB#: [id number] CC:
--- NOTE | 2018-03-18 23:56 | Cardiology Progress Note ---
Assessment/Plan Assessment/Plan 1. Accelerated hypertension, BP well controlled, continue minoxidil along with the other anti-hypertensive meds. Echo showed normal LVEF at 60% with normal PAP. 2. End-stage renal disease, on hemodialysis 3 days a week. 3. History of diabetes mellitus, continue aspirin and statins. 4. Dyslipidemia with low HDL, continue statins. Subjective Subjective Sinus rhythm at 65. Objective Last 24 Hour Vital Signs Date Time Temp Pulse Resp B/P (MAP) Pulse Ox O2 Delivery O2 Flow Rate FiO2 03/18/18 22:39 158/57 03/18/18 21:18 140/89 03/18/18 21:00 Room Air 03/18/18 20:00 97.9 69 20 140/60 (86) 98 97.9 03/18/18 19:07 76 03/18/18 16:00 98.1 75 20 123/56 (78) 98 98.1 03/18/18 16:00 73 03/18/18 14:29 Room Air 03/18/18 14:00 145/56 03/18/18 14:00 145/56 03/18/18 12:00 71 03/18/18 12:00 97.5 68 20 134/50 (78) 98 97.5 03/18/18 09:00 Room Air 03/18/18 08:00 97.5 71 20 133/57 (82) 99 97.5 03/18/18 08:00 75 03/18/18 05:30 119/46 03/18/18 05:00 119/46 03/18/18 04:00 69 03/18/18 04:00 97.7 68 20 119/46 (70) 98 97.7 03/18/18 00:00 97.5 81 20 149/66 (93) 95 97.5 03/18/18 00:00 84 Intake and Output 03/17/18 03/18/18 19:00 07:00 Intake Total 100 ml Output Total 300 ml Balance -200 ml Intake Oral 100 ml Output Urine Total 300 ml # Voids 1 2 2D Echo: LVEF 60%, Mild LVH, RVSP 15 mmHg Laboratory Tests Test 03/18/18 05:10 03/18/18 21:40 White Blood Count 5.8 K/UL (4.8-10.8) Red Blood Count 4.09 M/UL (4.20-5.40) L Hemoglobin 11.9 G/DL (12.0-16.0) L Hematocrit 36.1 % (37.0-47.0) L Mean Corpuscular Volume 88 FL (80-99) Mean Corpuscular Hemoglobin 29.2 PG (27.0-31.0) Mean Corpuscular Hemoglobin Concent 33.1 G/DL (32.0-36.0) Red Cell Distribution Width 13.0 % (11.6-14.8) Platelet Count 219 K/UL (150-450) Mean Platelet Volume 7.4 FL (6.5-10.1) Neutrophils (%) (Auto) 62.6 % (45.0-75.0) Lymphocytes (%) (Auto) 25.8 % (20.0-45.0) Monocytes (%) (Auto) 8.3 % (1.0-10.0) Eosinophils (%) (Auto) 2.3 % (0.0-3.0) Basophils (%) (Auto) 1.1 % (0.0-2.0) Sodium Level 136 MMOL/L (136-145) Potassium Level 5.3 MMOL/L (3.5-5.1) H Chloride Level 101 MMOL/L (98-107) Carbon Dioxide Level 26 MMOL/L (21-32) Anion Gap 9 mmol/L (5-15) Blood Urea Nitrogen 40 mg/dL (7-18) H Creatinine 6.7 MG/DL (0.55-1.30) H Estimat Glomerular Filtration Rate mL/min (>60) Glucose Level 122 MG/DL (74-106) H Hemoglobin A1c 6.3 % (4.3-6.0) H Uric Acid 4.7 MG/DL (2.6-7.2) Calcium Level 9.6 MG/DL (8.5-10.1) Phosphorus Level 4.8 MG/DL (2.5-4.9) Magnesium Level 2.0 MG/DL (1.8-2.4) Iron Level 89 ug/dL (50-175) Total Iron Binding Capacity 196 ug/dL (250-450) L Percent Iron Saturation 45 % (15-50) Unsaturated Iron Binding 107 ug/dL (112-346) L Ferritin 1052 NG/ML (8-388) H Total Bilirubin 0.4 MG/DL (0.2-1.0) Gamma Glutamyl Transpeptidase 25 U/L (5-85) Aspartate Amino Transf (AST/SGOT) 10 U/L (15-37) L Alanine Aminotransferase (ALT/SGPT) 14 U/L (12-78) Alkaline Phosphatase 119 U/L (46-116) H Pro-B-Type Natriuretic Peptide 35471 pg/mL (0-125) H Total Protein 7.0 G/DL (6.4-8.2) Albumin 3.3 G/DL (3.4-5.0) L Globulin 3.7 g/dL Albumin/Globulin Ratio 0.9 (1.0-2.7) L Triglycerides Level 141 MG/DL (30-150) Cholesterol Level 134 MG/DL (< 200) LDL Cholesterol 70 mg/dL (<100) HDL Cholesterol 36 MG/DL (40-60) L Cholesterol/HDL Ratio 3.7 (3.3-4.4) Lipase 129 U/L (73-393) Vitamin B12 Level 824 PG/ML (193-986) Folate 6.0 NG/ML (8.6-58.9) L Thyroid Stimulating Hormone (TSH) 1.271 uiU/mL (0.358-3.740) C-Reactive Protein, Quantitative < 0.4 mg/dL (0.00-0.90) Objective HEENT: Atraumatic and normocephalic. Anicteric. Pupils are equal, round, and reactive to light and accommodation. Extraocular muscles intact. NECK: JVP is less than 5 centimeter. No carotid bruit. Carotid upstroke is 2+ bilaterally. CARDIOVASCULAR: Normal S1 and S2. Regular rate and rhythm. No murmurs, gallops, or rubs. PMI is at fourth intercostal space in the midclavicular. LUNGS: Clear to auscultation bilaterally. ABDOMEN: Soft, nontender, and nondistended. No hepatosplenomegaly. Positive bowel sounds. EXTREMITIES: No evidence of edema, clubbing, or cyanosis. There is presence of a right upper arm AV fistula . Van Ingram MD Mar 18, 2018 23:56
[2018-03-19] VITALS (7 sets, daily range): BP systolic 117–168; BP diastolic 41–69
[2018-03-19] MEDS: HydrALAZINE 25mg tab ORAL SCH ×3 (05:48→22:00)
[2018-03-19 05:55] LABS: BASOPHILS % (AUTO) 0.9 % (0.0-2.0); EOSINOPHILS % (AUTO) 4.2 % (0.0-3.0); HEMATOCRIT 35.5 % (37.0-47.0); HEMOGLOBIN 11.8 G/DL (12.0-16.0); LYMPHOCYTES % (AUTO) 22.4 % (20.0-45.0); MEAN CORPUSCULAR VOLUME 88 FL (80-99); MONOCYTES % (AUTO) 9.1 % (1.0-10.0); NEUTROPHILS % (AUTO) 63.4 % (45.0-75.0); PLATELET COUNT 189 K/UL (150-450); RED BLOOD COUNT 4.03 M/UL (4.20-5.40); RED CELL DISTRIBUTION WIDTH 12.9 % (11.6-14.8); WHITE BLOOD COUNT 4.8 K/UL (4.8-10.8)
[2018-03-19 05:59] LABS: ALANINE AMINOTRANSFERASE 14 U/L (12-78); ALBUMIN 3.3 G/DL (3.4-5.0); ALBUMIN/GLOBULIN RATIO 0.9 (1.0-2.7); ALKALINE PHOSPHATASE 119 U/L (46-116); ANION GAP 8 mmol/L (5-15); ASPARTATE AMINO TRANSFERASE 15 U/L (15-37); BILIRUBIN,TOTAL 0.5 MG/DL (0.2-1.0); BLOOD UREA NITROGEN 27 mg/dL (7-18); CALCIUM 9.5 MG/DL (8.5-10.1); CARBON DIOXIDE 29 MMOL/L (21-32); CHLORIDE 100 MMOL/L (98-107); CREATININE 5.3 MG/DL (0.55-1.30); PHOSPHORUS 4.4 MG/DL (2.5-4.9); POTASSIUM 5.1 MMOL/L (3.5-5.1); SODIUM 137 MMOL/L (136-145)
[2018-03-19] MEDS: Aspirin Baby 81mg ORAL SCH (08:30)
--- NOTE | 2018-03-19 18:14 | Nephrology Progress Note ---
Assessment/Plan Problem List: (1) ESRD (end stage renal disease) on dialysis (2) Hypertensive urgency, malignant Assessment HTN OOC- ESRD Plan BP Meds adjusted HD 03/18 then 03/20 Per orders waiting for cultures: negative normal echo ? DC in am after HD Subjective ROS Limited/Unobtainable: No Objective Objective Last 24 Hour Vital Signs Date Time Temp Pulse Resp B/P (MAP) Pulse Ox O2 Delivery O2 Flow Rate FiO2 03/19/18 16:00 98.2 18 136/54 (81) 98 98.2 03/19/18 16:00 64 03/19/18 13:58 117/69 03/19/18 13:57 117/69 03/19/18 12:00 98.1 20 117/69 (85) 98 98.1 03/19/18 12:00 62 03/19/18 09:00 Room Air 03/19/18 08:31 70 168/60 03/19/18 08:00 66 03/19/18 08:00 97.3 70 20 168/60 (96) 98 97.3 03/19/18 06:46 139/57 (84) 03/19/18 05:48 160/58 03/19/18 05:48 160/58 03/19/18 04:00 98.0 65 20 160/58 (92) 98 98.0 03/19/18 03:32 59 03/19/18 00:00 96.4 61 20 146/55 (85) 98 96.4 03/18/18 23:33 62 03/18/18 22:39 158/57 03/18/18 21:18 140/89 03/18/18 21:00 Room Air 03/18/18 20:00 97.9 69 20 140/60 (86) 98 97.9 03/18/18 19:07 76 Intake and Output 03/18/18 03/19/18 19:00 07:00 Intake Total 480 ml 275 ml Output Total 2000 ml 150 ml Balance -1520 ml 125 ml Intake Oral 480 ml 275 ml Output Urine Total 150 ml Hemodialysis UF 2000 ml # Voids 2 Current Medications Medications (Trade) Dose Ordered Sig/Oren Route PRN Reason Start Time Stop Time Status Last Admin Dose Admin Acetaminophen (Tylenol) 500 mg Q4H PRN ORAL Mild Pain/Temp > 100.5 03/17/18 23:15 11/15/18 23:14 Aspirin (ASA) 81 mg DAILY ORAL 03/18/18 09:00 04/17/18 08:59 03/19/18 08:30 Atorvastatin Calcium (Lipitor) 20 mg BEDTIME ORAL 03/18/18 21:00 04/17/18 20:59 03/18/18 21:18 Clonidine HCl (Catapres Tab) 0.1 mg Q8HR ORAL 03/18/18 14:00 04/17/18 13:59 03/19/18 05:48 Hydralazine HCl (Apresoline) 25 mg EVERY 8 HOURS ORAL 03/18/18 14:00 04/16/18 21:59 03/19/18 05:48 Minoxidil (Loniten) 2.5 mg Q4H PRN ORAL bp over 170 syst 03/17/18 16:45 04/16/18 16:44 Nifedipine (Procardia XL) 60 mg DAILY ORAL 03/19/18 09:00 04/16/18 20:59 03/19/18 08:31 Ondansetron HCl (Zofran) 4 mg Q6H PRN IVP Nausea & Vomiting 03/18/18 09:15 04/17/18 09:14 Pantoprazole (Protonix) 40 mg EVERY 12 HOURS ORAL 03/17/18 21:00 04/16/18 20:59 03/19/18 08:31 Laboratory Tests 03/18/18 21:40: C-Reactive Protein, Quantitative < 0.4 03/19/18 05:00: White Blood Count 4.8, Red Blood Count 4.03L, Hemoglobin 11.8L, Hematocrit 35.5L , Mean Corpuscular Volume 88, Mean Corpuscular Hemoglobin 29.3, Mean Corpuscular Hemoglobin Concent 33.3, Red Cell Distribution Width 12.9, Platelet Count 189, Mean Platelet Volume 7.5, Neutrophils (%) (Auto) 63.4, Lymphocytes (% ) (Auto) 22.4, Monocytes (%) (Auto) 9.1, Eosinophils (%) (Auto) 4.2H, Basophils (%) (Auto) 0.9, Sodium Level 137, Potassium Level 5.1, Chloride Level 100, Carbon Dioxide Level 29, Anion Gap 8, Blood Urea Nitrogen 27H, Creatinine 5.3H, Estimat Glomerular Filtration Rate , Glucose Level 126H, Calcium Level 9.5, Phosphorus Level 4.4, Total Bilirubin 0.5, Aspartate Amino Transf (AST/SGOT) 15 , Alanine Aminotransferase (ALT/SGPT) 14, Alkaline Phosphatase 119H, Total Protein 7.1, Albumin 3.3L, Globulin 3.8, Albumin/Globulin Ratio 0.9L Height (Feet): 5 Height (Inches): 4.00 Weight (Pounds): 117 General Appearance: no apparent distress Objective no change Hermilo Lauren MD Mar 19, 2018 18:14
[2018-03-19] MEDS: Atorvastatin 20mg tab ORAL SCH (21:10)
--- NOTE | 2018-03-19 21:55 | General Progress Note ---
Assessment/Plan Problem List: (1) Renal failure ICD Codes: N19 - Unspecified kidney failure SNOMED: 57704513 (2) ESRD (end stage renal disease) on dialysis ICD Codes: N18.6 - End stage renal disease; Z99.2 - Dependence on renal dialysis SNOMED: 610229110 (3) Hypertensive urgency, malignant ICD Codes: I16.0 - Hypertensive urgency SNOMED: 202588112 Status: progressing Assessment/Plan hypertensive urgency afebrile azotemia esrd on hd bp is improving Subjective ROS Limited/Unobtainable: Yes Allergies: Coded Allergies: PENICILLINS (Verified Allergy, Unknown, 03/17/18) Patient states feeling chills Objective Last 24 Hour Vital Signs Date Time Temp Pulse Resp B/P (MAP) Pulse Ox O2 Delivery O2 Flow Rate FiO2 03/19/18 20:00 98.3 71 20 123/41 (68) 97 98.3 03/19/18 19:52 70 03/19/18 16:00 98.2 18 136/54 (81) 98 98.2 03/19/18 16:00 64 03/19/18 13:58 117/69 03/19/18 13:57 117/69 03/19/18 12:00 98.1 20 117/69 (85) 98 98.1 03/19/18 12:00 62 03/19/18 09:00 Room Air 03/19/18 08:31 70 168/60 03/19/18 08:00 66 03/19/18 08:00 97.3 70 20 168/60 (96) 98 97.3 03/19/18 06:46 139/57 (84) 03/19/18 05:48 160/58 03/19/18 05:48 160/58 03/19/18 04:00 98.0 65 20 160/58 (92) 98 98.0 03/19/18 03:32 59 03/19/18 00:00 96.4 61 20 146/55 (85) 98 96.4 03/18/18 23:33 62 03/18/18 22:39 158/57 Intake and Output 03/18/18 03/19/18 19:00 07:00 Intake Total 480 ml 275 ml Output Total 2000 ml 150 ml Balance -1520 ml 125 ml Intake Oral 480 ml 275 ml Output Urine Total 150 ml Hemodialysis UF 2000 ml # Voids 2 Laboratory Tests 03/19/18 05:00: White Blood Count 4.8, Red Blood Count 4.03L, Hemoglobin 11.8L, Hematocrit 35.5L , Mean Corpuscular Volume 88, Mean Corpuscular Hemoglobin 29.3, Mean Corpuscular Hemoglobin Concent 33.3, Red Cell Distribution Width 12.9, Platelet Count 189, Mean Platelet Volume 7.5, Neutrophils (%) (Auto) 63.4, Lymphocytes (% ) (Auto) 22.4, Monocytes (%) (Auto) 9.1, Eosinophils (%) (Auto) 4.2H, Basophils (%) (Auto) 0.9, Sodium Level 137, Potassium Level 5.1, Chloride Level 100, Carbon Dioxide Level 29, Anion Gap 8, Blood Urea Nitrogen 27H, Creatinine 5.3H, Estimat Glomerular Filtration Rate , Glucose Level 126H, Calcium Level 9.5, Phosphorus Level 4.4, Total Bilirubin 0.5, Aspartate Amino Transf (AST/SGOT) 15 , Alanine Aminotransferase (ALT/SGPT) 14, Alkaline Phosphatase 119H, Total Protein 7.1, Albumin 3.3L, Globulin 3.8, Albumin/Globulin Ratio 0.9L Height (Feet): 5 Height (Inches): 4.00 Weight (Pounds): 117 Cardiovascular: normal rate Respiratory/Chest: lungs clear Abdomen: soft Henrietta Desir MD Mar 19, 2018 21:55
--- NOTE | 2018-03-19 23:55 | Cardiology Progress Note ---
Assessment/Plan Assessment/Plan 1. Accelerated hypertension, still stage II HTN, continue minoxidil PRN along with clonidine, hydralazine and nifedipine. Echo showed normal LVEF at 60% with normal PAP. 2. End-stage renal disease, on hemodialysis 3 days a week. 3. History of diabetes mellitus, continue aspirin and statins. 4. Dyslipidemia with low HDL, continue statins. Subjective Subjective Sinus rhythm at 65. Objective Last 24 Hour Vital Signs Date Time Temp Pulse Resp B/P (MAP) Pulse Ox O2 Delivery O2 Flow Rate FiO2 03/19/18 22:00 118/51 03/19/18 22:00 118/51 03/19/18 21:00 Room Air 03/19/18 20:00 98.3 71 20 123/41 (68) 97 98.3 03/19/18 19:52 70 03/19/18 16:00 98.2 18 136/54 (81) 98 98.2 03/19/18 16:00 64 03/19/18 13:58 117/69 03/19/18 13:57 117/69 03/19/18 12:00 98.1 20 117/69 (85) 98 98.1 03/19/18 12:00 62 03/19/18 09:00 Room Air 03/19/18 08:31 70 168/60 03/19/18 08:00 66 03/19/18 08:00 97.3 70 20 168/60 (96) 98 97.3 03/19/18 06:46 139/57 (84) 03/19/18 05:48 160/58 03/19/18 05:48 160/58 03/19/18 04:00 98.0 65 20 160/58 (92) 98 98.0 03/19/18 03:32 59 03/19/18 00:00 96.4 61 20 146/55 (85) 98 96.4 Intake and Output 03/18/18 03/19/18 19:00 07:00 Intake Total 480 ml 275 ml Output Total 2000 ml 150 ml Balance -1520 ml 125 ml Intake Oral 480 ml 275 ml Output Urine Total 150 ml Hemodialysis UF 2000 ml # Voids 2 2D Echo: LVEF 60%, Mild LVH, RVSP 15 mmHg Laboratory Tests Test 03/19/18 05:00 White Blood Count 4.8 K/UL (4.8-10.8) Red Blood Count 4.03 M/UL (4.20-5.40) L Hemoglobin 11.8 G/DL (12.0-16.0) L Hematocrit 35.5 % (37.0-47.0) L Mean Corpuscular Volume 88 FL (80-99) Mean Corpuscular Hemoglobin 29.3 PG (27.0-31.0) Mean Corpuscular Hemoglobin Concent 33.3 G/DL (32.0-36.0) Red Cell Distribution Width 12.9 % (11.6-14.8) Platelet Count 189 K/UL (150-450) Mean Platelet Volume 7.5 FL (6.5-10.1) Neutrophils (%) (Auto) 63.4 % (45.0-75.0) Lymphocytes (%) (Auto) 22.4 % (20.0-45.0) Monocytes (%) (Auto) 9.1 % (1.0-10.0) Eosinophils (%) (Auto) 4.2 % (0.0-3.0) H Basophils (%) (Auto) 0.9 % (0.0-2.0) Sodium Level 137 MMOL/L (136-145) Potassium Level 5.1 MMOL/L (3.5-5.1) Chloride Level 100 MMOL/L (98-107) Carbon Dioxide Level 29 MMOL/L (21-32) Anion Gap 8 mmol/L (5-15) Blood Urea Nitrogen 27 mg/dL (7-18) H Creatinine 5.3 MG/DL (0.55-1.30) H Estimat Glomerular Filtration Rate mL/min (>60) Glucose Level 126 MG/DL (74-106) H Calcium Level 9.5 MG/DL (8.5-10.1) Phosphorus Level 4.4 MG/DL (2.5-4.9) Total Bilirubin 0.5 MG/DL (0.2-1.0) Aspartate Amino Transf (AST/SGOT) 15 U/L (15-37) Alanine Aminotransferase (ALT/SGPT) 14 U/L (12-78) Alkaline Phosphatase 119 U/L (46-116) H Total Protein 7.1 G/DL (6.4-8.2) Albumin 3.3 G/DL (3.4-5.0) L Globulin 3.8 g/dL Albumin/Globulin Ratio 0.9 (1.0-2.7) L Microbiology Date/Time Source Procedure Growth Status 03/17/18 17:20 Blood Blood Culture - Preliminary NO GROWTH AFTER 24 HOURS Resulted 03/17/18 17:10 Blood Blood Culture - Preliminary NO GROWTH AFTER 24 HOURS Resulted Objective HEENT: Atraumatic and normocephalic. Anicteric. Pupils are equal, round, and reactive to light and accommodation. Extraocular muscles intact. NECK: JVP is less than 5 centimeter. No carotid bruit. Carotid upstroke is 2+ bilaterally. CARDIOVASCULAR: Normal S1 and S2. Regular rate and rhythm. No murmurs, gallops, or rubs. PMI is at fourth intercostal space in the midclavicular. LUNGS: Clear to auscultation bilaterally. ABDOMEN: Soft, nontender, and nondistended. No hepatosplenomegaly. Positive bowel sounds. EXTREMITIES: No evidence of edema, clubbing, or cyanosis. There is presence of a right upper arm AV fistula . Van Ingram MD Mar 19, 2018 23:55
[2018-03-20] VITALS (9 sets, daily range): BP systolic 113–163; BP diastolic 50–73
[2018-03-20] MEDS: HydrALAZINE 25mg tab ORAL SCH ×3 (05:50→21:09)
[2018-03-20] MEDS: Aspirin Baby 81mg ORAL SCH (08:33)
--- NOTE | 2018-03-20 14:33 | Nephrology Progress Note ---
Assessment/Plan Problem List: (1) ESRD (end stage renal disease) on dialysis (2) Hypertensive urgency, malignant Assessment HTN OOC- ESRD Plan BP Meds adjusted HD 03/18 then 03/20 Per orders waiting for cultures: negative normal echo ? DC today after HD Subjective ROS Limited/Unobtainable: No Constitutional: Reports: malaise Objective Objective Last 24 Hour Vital Signs Date Time Temp Pulse Resp B/P (MAP) Pulse Ox O2 Delivery O2 Flow Rate FiO2 03/20/18 12:00 62 03/20/18 12:00 98.6 68 16 113/63 (80) 97 98.6 03/20/18 09:00 Room Air 03/20/18 08:34 84 119/73 03/20/18 08:00 97.9 84 20 119/73 (88) 98 97.9 03/20/18 08:00 67 03/20/18 05:50 149/55 03/20/18 05:50 149/55 03/20/18 04:03 65 03/20/18 04:00 98.2 66 20 150/63 (92) 100 98.2 03/20/18 00:01 67 03/20/18 00:00 97.5 68 20 131/58 (82) 98 97.5 03/19/18 22:00 118/51 03/19/18 22:00 118/51 03/19/18 21:00 Room Air 03/19/18 20:00 98.3 71 20 123/41 (68) 97 98.3 03/19/18 19:52 70 03/19/18 16:00 98.2 18 136/54 (81) 98 98.2 03/19/18 16:00 64 Intake and Output 03/19/18 03/20/18 18:59 06:59 Intake Total 480 ml Balance 480 ml Intake Oral 480 ml # Voids 2 3 Current Medications Medications (Trade) Dose Ordered Sig/Oren Route PRN Reason Start Time Stop Time Status Last Admin Dose Admin Acetaminophen (Tylenol) 500 mg Q4H PRN ORAL Mild Pain/Temp > 100.5 03/17/18 23:15 04/16/18 23:14 Aspirin (ASA) 81 mg DAILY ORAL 03/18/18 09:00 04/17/18 08:59 03/20/18 08:33 Atorvastatin Calcium (Lipitor) 20 mg BEDTIME ORAL 03/18/18 21:00 04/17/18 20:59 03/19/18 21:10 Clonidine HCl (Catapres Tab) 0.1 mg Q8HR ORAL 03/18/18 14:00 04/17/18 13:59 03/20/18 05:50 Hydralazine HCl (Apresoline) 25 mg EVERY 8 HOURS ORAL 03/18/18 14:00 04/16/18 21:59 03/20/18 05:50 Minoxidil (Loniten) 2.5 mg Q4H PRN ORAL bp over 170 syst 03/17/18 16:45 04/16/18 16:44 Nifedipine (Procardia XL) 60 mg DAILY ORAL 03/19/18 09:00 04/16/18 20:59 03/20/18 08:34 Ondansetron HCl (Zofran) 4 mg Q6H PRN IVP Nausea & Vomiting 03/18/18 09:15 04/17/18 09:14 Pantoprazole (Protonix) 40 mg EVERY 12 HOURS ORAL 03/17/18 21:00 04/16/18 20:59 03/20/18 08:33 Height (Feet): 5 Height (Inches): 4.00 Weight (Pounds): 115 General Appearance: no apparent distress Objective no change Hermilo Lauren MD Mar 20, 2018 14:33
[2018-03-20] MEDS: Atorvastatin 20mg tab ORAL SCH (21:10)
--- NOTE | 2018-03-20 23:10 | General Progress Note ---
Assessment/Plan Problem List: (1) Renal failure ICD Codes: N19 - Unspecified kidney failure SNOMED: 40359307 (2) ESRD (end stage renal disease) on dialysis ICD Codes: N18.6 - End stage renal disease; Z99.2 - Dependence on renal dialysis SNOMED: 877743829 (3) Hypertensive urgency, malignant ICD Codes: I16.0 - Hypertensive urgency SNOMED: 849138805 Status: progressing Assessment/Plan hypertensive urgency no headache esrd on hd Subjective ROS Limited/Unobtainable: Yes Allergies: Coded Allergies: PENICILLINS (Verified Allergy, Unknown, 03/17/18) Patient states feeling chills Objective Last 24 Hour Vital Signs Date Time Temp Pulse Resp B/P (MAP) Pulse Ox O2 Delivery O2 Flow Rate FiO2 03/20/18 21:09 150/61 03/20/18 21:09 150/61 03/20/18 21:00 Room Air 03/20/18 20:00 98.0 60 18 150/61 (90) 99 98.0 63 03/20/18 19:37 69 03/20/18 17:41 Room Air 03/20/18 16:32 60 133/50 (77) 03/20/18 15:44 Room Air 03/20/18 15:43 98.6 71 16 163/60 (94) 97 98.6 03/20/18 15:37 69 03/20/18 12:00 62 03/20/18 12:00 98.6 68 16 113/63 (80) 97 98.6 03/20/18 09:00 Room Air 03/20/18 08:34 84 119/73 03/20/18 08:00 97.9 84 20 119/73 (88) 98 97.9 03/20/18 08:00 67 03/20/18 05:50 149/55 03/20/18 05:50 149/55 03/20/18 04:03 65 03/20/18 04:00 98.2 66 20 150/63 (92) 100 98.2 03/20/18 00:01 67 03/20/18 00:00 97.5 68 20 131/58 (82) 98 97.5 Intake and Output 03/19/18 03/20/18 19:00 07:00 Intake Total 480 ml Balance 480 ml Intake Oral 480 ml # Voids 2 3 Height (Feet): 5 Height (Inches): 4.00 Weight (Pounds): 115 Cardiovascular: normal rate Respiratory/Chest: lungs clear Abdomen: soft, no organomegaly Henrietta Desir MD Mar 20, 2018 23:10
[2018-03-21] VITALS: BP 148/52
[2018-03-21 04:00] VITALS: BP 160/56
[2018-03-21] MEDS: HydrALAZINE 25mg tab ORAL SCH ×2 (05:23→14:00)
[2018-03-21 08:00] VITALS: BP 124/45
[2018-03-21] MEDS: Aspirin Baby 81mg ORAL SCH (08:27)
[2018-03-21 12:00] VITALS: BP 127/46
[2018-03-21 14:23] VITALS: BP 117/42
--- NOTE | 2018-03-22 11:29 | Discharge Summary ---
Discharge Summary Discharge Summary _ DATE OF ADMISSION: 03/17/2018 DATE OF DISCHARGE: 03/21/2018 REASON FOR ADMISSION: 72 years old female with past medical history of end-stage renal disease, on hemodialysis, hypertension, diabetes mellitus, presented with elevated blood pressure, dizziness and headache. Upon evaluation blood pressure was 219/84. CT of the head revealed no acute intracranial pathology. Chest x-ray revealed cardiomegaly, but no acute findings. Laboratory workup revealed no leukocytosis, stable hemoglobin and hematocrit. Troponin negative. Renal parameters showed renal failure, consistent with known history off end -stage renal disease . Potassium was 5.4 . Patient admitted with diagnoses of hypertensive urgency, malignant; end-stage renal disease, on hemodialysis. CONSULTANTS: veterinary assistant technician Dr. Ingram cleaner laboratory equipment Dr. Lauren [facility] COURSE: Patient admitted to telemetry floor. Cardiology and nephrology consults requested. Antihypertensive regimen optimized as per veterinary assistant technician . Patient was on multiply regimen of antihypertensive medications, including Procardia, hydralazine, clonidine and minoxidil . Blood pressure finally stabilized , and prior to discharge 117/62. Echocardiogram revealed preserved ejection fraction 60-65% and evidence of mild left ventricular hypertrophy. Lipid panel revealed low HDL. Antiplatelet therapy with aspirin and statin were continued. Blood sugar was closely monitored and remained stable. WeO3h-2.3, at goal. Continue current home management of blood sugar upon discharge. Hemodialysis provided as per cleaner laboratory equipment orders with close monitoring of volumes and cardiorenal parameters. Patient clinically improved . Blood pressure stabilized . Headache and dizziness resolved as blood pressure stabilized. Patient was ready for discharge home FINAL DIAGNOSES: Hypertensive urgency, malignant but resolved End-stage renal disease on hemodialysis Dyslipidemia Diabetes mellitus DISCHARGE MEDICATIONS: See Medication Reconciliation list. DISCHARGE INSTRUCTIONS: Patient was discharged home . Follow up with primary care provider in one week. Follow-up with outpatient hemodialysis I have been assigned to dictate discharge summary for this account. I was not involved in the patient's management. Tami Yang NP Mar 22, 2018 11:29
--- NOTE | 2018-03-22 22:22 | Diagnostic Imaging Report ---
APPROVED REPORT CPT Code: 04742 Present Symptoms Comments: Swelling BILATERAL UPPER EXTREMITY: Imaging reveals patency of the internal jugular, subclavian, axillary and brachial veins. Doppler indicates normal spontaneous flow within these venous segments, bilaterally. SUPERFICIAL VENOUS SYSTEM: Imaging reveals patency of the right cephalic and basilic veins at upper arm level. The left basilic vein was not well visualized. The left cephalic vein upper arm level is patent. Imaging also reveals patency of the arterio-venous fistula at the right upper arm level.
== END 2018-03-21 15:15 | disposition home or self-care (01) | DRG 199 ==
LOC: EMR 14:08 → 2E 14:35 → EDBEDREQ 16:00 → 2E 16:47
PROC: 5A1D70Z Performance of Urinary Filtration, Intermittent, Less than 6 Hours Per Day (ICD-10-PCS; principal; 2018-03-18)
DX: I16.0 Hypertensive urgency (principal); E11.22 Type 2 diabetes mellitus with diabetic chronic kidney disease; N18.6 End stage renal disease; I12.0 Hypertensive chronic kidney disease with stage 5 chronic kidney disease or end stage renal disease; Z99.2 Dependence on renal dialysis; E78.5 Hyperlipidemia, unspecified; K21.9 Gastro-esophageal reflux disease without esophagitis; Z90.49 Acquired absence of other specified parts of digestive tract; Z88.0 Allergy status to penicillin
CPT/HCPCS: 36415; 70450; 71045; 80053; 80061; 82550; 82553; 82607; 82728; 82746; 82977; 83036; 83540; 83550; 83605; 83690; 83735; 83880; 84100; 84443; 84484; 84550; 85025; 86140; 87040; 87081; 93005; 93306; 93970; 96374; 96375; 99291; J2405

== ENCOUNTER 2018-03-23 19:48 | Emergency (ER) | payer MEDICAID ==
[~2018-03-23] VITALS: Ht 154.9 cm; Wt 49.9 kg
[~2018-03-23 19:48] MED LIST changes: +ASPIR 8181 MG ORAL; +ATORVASTATIN CA40 MG ORAL; +HYDRALAZINE HCL50 MG ORAL; +METOPROLOL SUCC25 MG ORAL; +METOPROLOL TART25 MG ORAL; +NIFEDIPINE ER60 M3 ORAL; +PEPCID AC20 M2 PO
[2018-03-23] MEDS ORDERED: NS 250 ML IV ONE (20:20)
[2018-03-23 20:40] VITALS: BP 190/70
[2018-03-23 20:59] LABS: ANION GAP 11 mmol/L (5-15); BLOOD UREA NITROGEN 32 mg/dL (7-18); CALCIUM 9.9 MG/DL (8.5-10.1); CARBON DIOXIDE 29 MMOL/L (21-32); CHLORIDE 93 MMOL/L (98-107); CREATININE 4.8 MG/DL (0.55-1.30); POTASSIUM 4.5 MMOL/L (3.5-5.1); SODIUM 133 MMOL/L (136-145)
[2018-03-23 21:00] LABS: BASOPHILS % (AUTO) 0.5 % (0.0-2.0); EOSINOPHILS % (AUTO) 1.4 % (0.0-3.0); HEMATOCRIT 39.8 % (37.0-47.0); HEMOGLOBIN 13.2 G/DL (12.0-16.0); LYMPHOCYTES % (AUTO) 17.5 % (20.0-45.0); MEAN CORPUSCULAR VOLUME 89 FL (80-99); MONOCYTES % (AUTO) 4.8 % (1.0-10.0); NEUTROPHILS % (AUTO) 75.8 % (45.0-75.0); PLATELET COUNT 258 K/UL (150-450); RED BLOOD COUNT 4.46 M/UL (4.20-5.40); RED CELL DISTRIBUTION WIDTH 12.8 % (11.6-14.8); WHITE BLOOD COUNT 8.2 K/UL (4.8-10.8)
[2018-03-23 21:22] LABS: ALANINE AMINOTRANSFERASE 18 U/L (12-78); ALBUMIN 4.3 G/DL (3.4-5.0); ALBUMIN/GLOBULIN RATIO 0.9 (1.0-2.7); ALKALINE PHOSPHATASE 148 U/L (46-116); ASPARTATE AMINO TRANSFERASE 18 U/L (15-37); BILIRUBIN,TOTAL 0.3 MG/DL (0.2-1.0); CKMB 0.7 NG/ML (0.0-3.6); CREATINE KINASE 56 U/L (26-308)
[2018-03-23 21:30] VITALS: BP 187/64
[2018-03-23 22:05] LABS: APPEARANCE,URINE CLEAR; BILIRUBIN, URINE NEGATIVE (NEGATIVE); COLOR,URINE PALE YELLOW; GLUCOSE, URINE (UA) 3+ (NEGATIVE); KETONES,URINE NEGATIVE (NEGATIVE); LEUKOCYTE ESTERASE ,URINE 2+ (NEGATIVE); NITRITE,URINE NEGATIVE (NEGATIVE); PH,URINE 9 (4.5-8.0); PROTEIN,URINE 4+ (NEGATIVE); UROBILINOGEN,URINE NORMAL MG/DL (0.0-1.0)
[2018-03-23 22:39] VITALS: BP 181/62
[2018-03-23] MEDS ORDERED: RANITIDINE HCL150 MG ORAL (22:43)
[2018-03-23] MEDS ORDERED: ONDANSETRON ODT4 MG BC (22:43)
--- NOTE | 2018-03-24 00:08 | Emergency Room Report ---
History of Present Illness General Chief Complaint: Nausea, Vomiting, and Diarrhea Source: Patient, Medical Record Present Illness HPI 72-year-old female presents ED for evaluation. Family at bedside states that patient is been having vomiting and diarrhea 1 day. Denies any abdominal pain. Denies any fevers or chills. Denies chest pain or shortness of breath. History of end-stage renal disease. Receive dialysis today. Eyes recent antibiotic use. Denies recent travel. No other aggravating relieving factors. Denies any other associated symptoms Allergies: Coded Allergies: PENICILLINS (Verified Allergy, Unknown, 03/23/18) Patient states feeling chills Patient History Past Medical History: DM, HTN, renal disease, dialysis Past Surgical History: none Pertinent Family History: none Social History: Denies: smoking, alcohol use, drug use Now: No Immunizations: UTD Reviewed Nursing Documentation: PMH: Agreed; PSxH: Agreed Nursing Documentation-PM Past Medical History: No History, Except For Hx Cardiac Problems: Yes Hx Hypertension: Yes Hx Diabetes: Yes Hx Cancer: No Hx Dialysis: Yes - M/W/F Hx Neurological Problems: No Hx Weakness: Yes Review of Systems All Other Systems: negative except mentioned in HPI Physical Exam Vital Signs Date Time Temp Pulse Resp B/P (MAP) Pulse Ox O2 Delivery O2 Flow Rate FiO2 03/23/18 19:58 98.4 99 15 198/72 96 Room Air 98.4 Sp02 EP Interpretation: reviewed, normal General Appearance: no apparent distress, alert, GCS 15, non-toxic Head: normocephalic Eyes: bilateral eye normal inspection, bilateral eye PERRL ENT: normal ENT inspection Neck: normal inspection Respiratory: chest non-tender, lungs clear, normal breath sounds, speaking full sentences Cardiovascular #1: regular rate, rhythm, no edema Gastrointestinal: normal bowel sounds, non tender, soft, non-distended, no guarding, no rebound Rectal: deferred Genitourinary: no CVA tenderness Musculoskeletal: normal inspection Neurologic: alert, oriented x3, responsive, motor strength/tone normal, sensory intact, speech normal Psychiatric: normal inspection Skin: normal inspection Lymphatic: normal inspection Medical Decision Making Diagnostic Impression: Primary Impression: Gastroenteritis Additional Impression: ESRD (end stage renal disease) on dialysis ER Course Hospital Course 72-year-old F presents to ED with cramping abdominal pain with vomiting, diarrhea differential diagnosis: gastritis, SBO, cholecystits, gastroenteritis Clinical course Patient placed on stretcher. 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 After initial history and physical I ordered labs, IV fluids, Zofran and pepcid Labs - no leukocytosis, BUN/Cr elevated, LFTs normal, UA unremarkable EKG - NSR, no acute ischemic changes interpreted by me Upon reassessment, patient states pain has improved. findings consistent with gastroenteritis Patient was recently admitted here for uncontrolled hypertension and end-stage renal disease. Labs appear unchanged. No acute on chronic failure. discussed findings with patient and family. I believe symptoms are likely related to gastroenteritis. Patient appears nontoxic and tolerating by mouth here. I offered option for admission but patient states she will prefer to be discharged I feel this is a highly complex case requiring extensive working including EKG/ Rhythm strip, Xray/CT/US, Blood/urine lab work, repeat exams while in ED, and administration of strong opiates/narcotics for pain control, admission to hospital or close patient follow up. Diagnosis - gastroenteritis, ESRD on dialysis Stable and discharged to home with prescriptions for zofran, zantac. Followup with PMD. Return to ED if symptoms recur or worsen Labs Test 03/23/18 20:15 03/23/18 21:36 White Blood Count 8.2 K/UL (4.8-10.8) Red Blood Count 4.46 M/UL (4.20-5.40) Hemoglobin 13.2 G/DL (12.0-16.0) Hematocrit 39.8 % (37.0-47.0) Mean Corpuscular Volume 89 FL (80-99) Mean Corpuscular Hemoglobin 29.6 PG (27.0-31.0) Mean Corpuscular Hemoglobin Concent 33.2 G/DL (32.0-36.0) Red Cell Distribution Width 12.8 % (11.6-14.8) Platelet Count 258 K/UL (150-450) Mean Platelet Volume 7.1 FL (6.5-10.1) Neutrophils (%) (Auto) 75.8 % (45.0-75.0) Lymphocytes (%) (Auto) 17.5 % (20.0-45.0) Monocytes (%) (Auto) 4.8 % (1.0-10.0) Eosinophils (%) (Auto) 1.4 % (0.0-3.0) Basophils (%) (Auto) 0.5 % (0.0-2.0) Sodium Level 133 MMOL/L (136-145) Potassium Level 4.5 MMOL/L (3.5-5.1) Chloride Level 93 MMOL/L (98-107) Carbon Dioxide Level 29 MMOL/L (21-32) Anion Gap 11 mmol/L (5-15) Blood Urea Nitrogen 32 mg/dL (7-18) Creatinine 4.8 MG/DL (0.55-1.30) Estimat Glomerular Filtration Rate mL/min (>60) Glucose Level 265 MG/DL (74-106) Calcium Level 9.9 MG/DL (8.5-10.1) Total Bilirubin 0.3 MG/DL (0.2-1.0) Aspartate Amino Transf (AST/SGOT) 18 U/L (15-37) Alanine Aminotransferase (ALT/SGPT) 18 U/L (12-78) Alkaline Phosphatase 148 U/L (46-116) Total Creatine Kinase 56 U/L (26-308) Creatine Kinase MB 0.7 NG/ML (0.0-3.6) Creatine Kinase MB Relative Index 1.2 Troponin I 0.007 ng/mL (0.000-0.056) Pro-B-Type Natriuretic Peptide 8462 pg/mL (0-125) Total Protein 9.0 G/DL (6.4-8.2) Albumin 4.3 G/DL (3.4-5.0) Globulin 4.7 g/dL Albumin/Globulin Ratio 0.9 (1.0-2.7) Urine Color Pale yellow Urine Appearance Clear Urine pH 9 (4.5-8.0) Urine Specific [place] 1.015 (1.005-1.035) Urine Protein 4+ (NEGATIVE) Urine Glucose (UA) 3+ (NEGATIVE) Urine Ketones Negative (NEGATIVE) Urine Blood 1+ (NEGATIVE) Urine Nitrite Negative (NEGATIVE) Urine Bilirubin Negative (NEGATIVE) Urine Urobilinogen Normal MG/DL (0.0-1.0) Urine Leukocyte Esterase 2+ (NEGATIVE) Urine RBC 2-4 /HPF (0 - 2) Urine WBC 5-10 /HPF (0 - 2) Urine Squamous Epithelial Cells Few /LPF (NONE/OCC) Urine Bacteria Few /HPF (NONE) EKG Diagnostic Results Rate: normal Rhythm: NSR ST Segments: no acute changes ASA given to the pt in ED: No Rhythm Strip Diag. Results EP Interpretation: yes Rhythm: NSR, no PVC's, no ectopy Last Vital Signs Date Time Temp Pulse Resp B/P (MAP) Pulse Ox O2 Delivery O2 Flow Rate FiO2 03/23/18 22:39 98.0 100 18 181/62 Room Air 03/23/18 21:30 96 Status: improved Disposition: HOME, SELF-CARE Condition: Stable Scripts Ranitidine Hcl* (ZANTAC*) 150 Mg Tablet 150 MG ORAL TWICE A DAY, #30 TAB Prov: Waqar Pearson MD 03/23/18 Ondansetron Odt* (ZOFRAN ODT*) 4 Mg Tab.rapdis 4 MG BC EVERY 6 HOURS PRN for Nausea & Vomiting, #30 TAB 0 Refills Prov: Waqar Pearson MD 03/23/18 Patient Instructions: Viral Gastroenteritis, Adult, [id number] Waqar Pearson MD Mar 24, 2018 00:08
--- NOTE | 2018-03-24 11:06 | Diagnostic Imaging Report ---
Indication: Chest pain Comparison: 03/17/2018 A single view chest radiograph was obtained. Findings: Cardiomediastinal appearance is within normal limits for age. The lungs are clear. Pulmonary vascularity is appropriate. The diaphragmatic contour is smooth and costophrenic angles are sharp. No pleural effusions are identified. The bones are unremarkable. Impression: No acute findings
--- NOTE | 2018-03-24 19:36 | Cardiology Report ---
APPROVED REPORT EKG Measurement Heart [id number] Normal sinus rhythm Nonspecific T wave abnormality Abnormal ECG
== END 2018-03-23 22:49 | disposition home or self-care (01) ==
LOC: EMR 20:30
DX: K52.9 Noninfective gastroenteritis and colitis, unspecified (principal); I12.0 Hypertensive chronic kidney disease with stage 5 chronic kidney disease or end stage renal disease; N18.6 End stage renal disease; Z99.2 Dependence on renal dialysis; E11.9 Type 2 diabetes mellitus without complications; Z88.0 Allergy status to penicillin
CPT/HCPCS: 36415; 71045; 80053; 81003; 82550; 82553; 83880; 84484; 85025; 93005; 96374; 96375; 99284; J0360; J2405; J7050; S0028

== ENCOUNTER 2018-11-22 21:55 | Inpatient (IN) | payer MEDICAID ==
[~2018-11-22] VITALS: Ht 165.1 cm; Wt 50.4 kg
[~2018-11-22 21:55] MED LIST changes: +ONDANSETRON ODT4 MG BC; +RANITIDINE HCL150 MG ORAL
[2018-11-22 21:56] VITALS: BP 200/75
--- NOTE | 2018-11-22 21:56 | NUR ---
ED Nurse Note: Walk-in patient presents with complaints of SOB, bilateral lower extremity edema. Patient also has complaints of chest pain
--- NOTE | 2018-11-22 22:00 | NUR ---
ED Nurse Note: PAtient desatted to 82 so was placed on 2L nasal cannula. ERMd informed.
[2018-11-22] MEDS ORDERED: Aspirin Baby 81mg ORAL ONE (22:30)
--- NOTE | 2018-11-22 22:30 | Emergency Room Report ---
History of Present Illness General Chief Complaint: Edema Source: Patient Present Illness HPI This is a 73-year-old female with a history of high blood pressure, diabetes, renal failure on hemodialysis. Her dialysis days are Friday, Friday, and Friday. She presents with shortness of breath. Onset today. Worse with exertion. Worse with lying flat. Has chest pressure because of shortness of breath. No fever chills. No cough or congestion. Denies any other complaint. Allergies: Coded Allergies: PENICILLINS (Verified Allergy, Unknown, 03/23/18) Patient states feeling chills Patient History Past Medical History: see triage record, old chart reviewed, DM, HTN, CAD, renal disease, dialysis Past Surgical History: other Pertinent Family History: none Social History: Denies: smoking Now: No Immunizations: other Reviewed Nursing Documentation: PMH: Agreed; PSxH: Agreed Nursing Documentation-PMH Hx Cardiac Problems: Yes Hx Hypertension: Yes Hx Diabetes: Yes Hx Cancer: No Hx Dialysis: Yes - M/W/F Hx Neurological Problems: No Hx Weakness: Yes Review of Systems Eye: Denies: eye pain, blurred vision ENT: Denies: ear pain, nose congestion, throat swelling Respiratory: Reports: cough, shortness of breath Cardiovascular: Denies: chest pain, palpitations Gastrointestinal: Denies: abdominal pain, diarrhea, nausea, vomiting Musculoskeletal: Denies: back pain, joint pain Skin: Denies: rash Neurological: Denies: headache, numbness Endocrine: Denies: increased thirst, increased urine Hematologic/Lymphatic: Denies: easy bruising All Other Systems: negative except mentioned in HPI Physical Exam Vital Signs Date Time Temp Pulse Resp B/P (MAP) Pulse Ox O2 Delivery O2 Flow Rate FiO2 11/22/18 21:56 98.4 90 16 200/75 (116) 96 Room Air Vitals with high blood pressure Sp02 EP Interpretation: reviewed, abnormal - Room air pulse ox 88% General Appearance: well appearing, alert, mild distress Head: normocephalic, atraumatic Eyes: bilateral eye PERRL, bilateral eye EOMI ENT: hearing grossly normal, normal pharynx Neck: full range of motion, supple, no meningismus Respiratory: chest non-tender, respiratory distress, decreased breath sounds, accessory muscle use, rales Cardiovascular #1: regular rate, rhythm, no murmur Gastrointestinal: normal bowel sounds, non tender, no mass, no organomegaly, no bruit, non-distended Musculoskeletal: back normal, gait/station normal, normal range of motion, other - 2+ pitting edema Psychiatric: mood/affect normal Skin: warm/dry Procedures Critical Care Time Critical Care Time Critical care is mandated in this patient who presented with respiratory failure from pulmonary edema. Patient require my urgent intervention to attenuate the risks of respiratory collapse which may lead to cardiovascular collapse and . Critical care time is 35 minutes excluding any reportable procedure. Critical care time included evaluation, multiple reevaluation, looking at old charts, interpreting laboratory and diagnostic data, discussing case with patient and family and consultants, and charting. Medical Decision Making Diagnostic Impression: Primary Impression: Pulmonary edema Qualified Codes: J81.0 - Acute pulmonary edema Additional Impressions: Hyperkalemia Hypertensive CHF Qualified Codes: I11.0 - Hypertensive heart disease with heart failure Respiratory failure with hypoxia Qualified Codes: J96.01 - Acute respiratory failure with hypoxia ER Course Patient presents with acute respiratory failure secondary to edema/CHF. Pt will require dialysis. She is much more comfortable on BiPap. She does have hyperkalemia that is treated here. No evidence of any EKG changes. Patient blood pressure is much improved. I discussed the case with Dr. Camilo who will admit for Dr. Devries service. Lab Results Impression Labs with elevated BNP and potassium EKG Diagnostic Results Rate: normal Rhythm: NSR ST Segments: no acute changes ASA given to the pt in ED: Yes Rhythm Strip Diag. Results EP Interpretation: yes Rate: 84 Rhythm: NSR, no PVC's, no ectopy Chest X-Ray Diagnostic Results Chest X-Ray Diagnostic Results : Chest X-Ray Ordered: Yes # of Views/Limited/Complete: 1 View Indication: Shortness of Breath EP Interpretation: Yes Interpretation: no consolidation, no pneumothorax, other - cardiomegaly with pulmonary edema Impression: Other - chf Electronically Signed by: Jonathan Soto MD Last Vital Signs Date Time Temp Pulse Resp B/P (MAP) Pulse Ox O2 Delivery O2 Flow Rate FiO2 11/22/18 21:56 98.4 90 16 200/75 (116) 96 Room Air Status: improved Disposition: ADMITTED INPATIENT Condition: Serious Jonathan Soto MD Nov 22, 2018 22:30
[2018-11-22 22:43] LABS: BASOPHILS % (AUTO) 1.3 % (0.0-2.0); EOSINOPHILS % (AUTO) 3.1 % (0.0-3.0); HEMATOCRIT 31.7 % (37.0-47.0); HEMOGLOBIN 10.5 G/DL (12.0-16.0); LYMPHOCYTES % (AUTO) 7.7 % (20.0-45.0); MEAN CORPUSCULAR VOLUME 85 FL (80-99); MONOCYTES % (AUTO) 5.1 % (1.0-10.0); NEUTROPHILS % (AUTO) 82.8 % (45.0-75.0); PLATELET COUNT 162 K/UL (150-450); RED BLOOD COUNT 3.73 M/UL (4.20-5.40); RED CELL DISTRIBUTION WIDTH 13.2 % (11.6-14.8)
[2018-11-22 22:45] LABS: APPEARANCE,URINE SLIGHTLY CLOUDY; BILIRUBIN, URINE NEGATIVE (NEGATIVE); COLOR,URINE PALE YELLOW; GLUCOSE, URINE (UA) 2+ (NEGATIVE); KETONES,URINE NEGATIVE (NEGATIVE); LEUKOCYTE ESTERASE ,URINE 2+ (NEGATIVE); NITRITE,URINE NEGATIVE (NEGATIVE); PH,URINE 9 (4.5-8.0); PROTEIN,URINE 4+ (NEGATIVE); UROBILINOGEN,URINE NORMAL MG/DL (0.0-1.0)
[2018-11-22 22:58] VITALS: BP 172/49
[2018-11-22] MEDS ORDERED: cefTRIAXone 1 GM in NS 55 ML IVPB ONE (23:00)
--- NOTE | 2018-11-22 23:45 | NUR ---
ED Nurse Note: swabs collected.
--- NOTE | 2018-11-22 23:52 | NUR ---
ED Nurse Note: Called and gave report to Tico SALCEDO. Enoc bring patient up once redrawn CMP comes back.
[2018-11-23] VITALS (7 sets, daily range): BP systolic 126–169; BP diastolic 41–70
--- NOTE | 2018-11-23 00:05 | NUR ---
ED Nurse Note: Patient was not easily arousable. ERMd informed. Patient upgraded to SDU.
[2018-11-23 00:10] LABS: ALANINE AMINOTRANSFERASE 23 U/L (12-78); ALBUMIN 4.2 G/DL (3.4-5.0); ALBUMIN/GLOBULIN RATIO 0.9 (1.0-2.7); ALKALINE PHOSPHATASE 171 U/L (46-116); ANION GAP 11 mmol/L (5-15); ASPARTATE AMINO TRANSFERASE 24 U/L (15-37); BILIRUBIN,TOTAL 0.6 MG/DL (0.2-1.0); BLOOD UREA NITROGEN 46 mg/dL (7-18); CARBON DIOXIDE 29 MMOL/L (21-32); CHLORIDE 100 MMOL/L (98-107); CKMB 0.8 NG/ML (0.0-3.6); CREATINE KINASE 60 U/L (26-308); CREATININE 7.2 MG/DL (0.55-1.30); POTASSIUM 6.8 MMOL/L (3.5-5.1); SODIUM 140 MMOL/L (136-145)
[2018-11-23] MEDS ORDERED: Sodium Polystyrene Sulfonate 15gm Powder ORAL ONE (00:30)
[2018-11-23] MEDS ORDERED: Insulin Human Regular 100units/ml 3ml IV ONE (00:30)
--- NOTE | 2018-11-23 00:31 | NUR ---
RESPIRATORY NOTE: PT PLACED ON BIPAP FOR SHALLOW BREATHING AND DESATURATION. PT CURRENTLY ON 15/5 RATE OF 12, 35% FIO2. ALARMS WERE ADJUSTED AND ARE ON AND AUDIBLE. FOAM TAPE PLACED ON PT'S MASK. PT IS ON A FACIAL MASK. NO FACIAL WOUNDS FOUND UPON INSPECTION. BIPAP MASK AND CIRCUIT ARE SECURE AND OUT OF THE WAY. PT IS STILL BREATHING SHALLOW WITH SMALL TIDAL VOLUMES BUT HER SPO2 IS NOW 100% ON THIS CURRENT FIO2. WILL CONTINUE TO MONITOR.
--- NOTE | 2018-11-23 00:51 | NUR ---
ED Nurse Note: Patient cleared for transport to floor, report given moments ago to Alexis RN. Patient is satting above 92% on nasal canula during transport. will be placed on BiPAP once floor is reach. Patient is accompanied by RN, [employer]tech and Tests Superintendent to floor.
--- NOTE | 2018-11-23 01:00 | NUR ---
NURSE NOTES: Received patient from ER Nurse Christen. Patient is lethargic, but responds to name, and follows directions. Received patient on Bipap settings 12/5 FiO2 at 30%. Skin is intact, no issues. Right upper arm AV shunt is present, bruit and thrill present. IV site is Left forearm 20g, patent and asymptomatic. Heart monitor is on, bed is locked, placed in lowest position, side rails up x3, bed alarm on, belonging list signed, daughter is in the room. Will continue to monitor.
[2018-11-23 04:17] LABS: BASOPHILS % (AUTO) 1.3 % (0.0-2.0); EOSINOPHILS % (AUTO) 3.5 % (0.0-3.0); HEMATOCRIT 28.7 % (37.0-47.0); HEMOGLOBIN 9.4 G/DL (12.0-16.0); LYMPHOCYTES % (AUTO) 16.8 % (20.0-45.0); MEAN CORPUSCULAR VOLUME 88 FL (80-99); MONOCYTES % (AUTO) 6.8 % (1.0-10.0); NEUTROPHILS % (AUTO) 71.7 % (45.0-75.0); PLATELET COUNT 138 K/UL (150-450); RED BLOOD COUNT 3.25 M/UL (4.20-5.40); RED CELL DISTRIBUTION WIDTH 13.1 % (11.6-14.8); WHITE BLOOD COUNT 6.5 K/UL (4.8-10.8)
[2018-11-23 04:37] LABS: ANION GAP 10 mmol/L (5-15); BLOOD UREA NITROGEN 46 mg/dL (7-18); CALCIUM 9.1 MG/DL (8.5-10.1); CARBON DIOXIDE 29 MMOL/L (21-32); CHLORIDE 101 MMOL/L (98-107); CREATININE 7.3 MG/DL (0.55-1.30); POTASSIUM 5.1 MMOL/L (3.5-5.1); SODIUM 140 MMOL/L (136-145)
[2018-11-23 04:47] LABS: % IRON SATURATION 15 % (15-50); IRON 28 ug/dL (50-175); TOTAL IRON BINDING CAPACITY 193 ug/dL (250-450)
[2018-11-23] MEDS: HydrALAZINE 50mg tab ORAL SCH ×3 (05:45→21:05)
[2018-11-23] MEDS ORDERED: HydrALAZINE 50mg tab ORAL SCH (06:00)
--- NOTE | 2018-11-23 06:36 | NUR ---
RESPIRATORY NOTE: Patient received on BiPAP with current ordered settings. BiPAP alarms are functional, audible and it is connected to a red outlet. Released facial mask to remove pressure from the face. Face was cleaned and new foam tape was added. There were no signs of skin redness or breakdown. Skin is intact. Patient appears in no distress. Will continue to monitor.
--- NOTE | 2018-11-23 06:49 | NUR ---
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 HYPERTENSIVE CHF VS: BP 200/75, P 90, T 98.4, RR 20, SpO2 88 on 3.0L NC RBC 3.73, H&H 10.5/31.7, K 6.8, BUN 46, CR 7.2 IS:LASIX 40mg IV ASPIRIN 162mg CLONIDINE 0.3mg CEFTRIAXONE 55ml IVPB ADMITTED TO SDU DCP: RETURN HOME
--- NOTE | 2018-11-23 07:02 | NUR ---
HAND-OFF: Report given to Kylie SALCEDO. Patient in stable condition.
--- NOTE | 2018-11-23 07:03 | NUR ---
NURSE NOTES: Received pt from DENISSE Muse in stable condition with no cardiopulmonary distress noted. Pt is asleep in bed, AAOx3 on Bipap 12/5 FiO2 30%, daughter at bedside, pitting edema noted on bilat lower extremities, skin is intact, Pt has a LFA 20g IV and HANK dialysis shunt. Bed is in lowest position with side rails up x 2, call light within reach, will continue to monitor pt.
[2018-11-23] MEDS: Metoprolol 25mg tab ORAL SCH ×2 (09:00→17:02)
[2018-11-23] MEDS: Aspirin EC 81mg tab ORAL SCH (09:06)
--- NOTE | 2018-11-23 09:45 | NUR ---
NURSE NOTES: Report received from DENISSE Espinal. Observed patient in bed awake, verbal, [place] Citizen speaking. Patient on O2 3L via NC, saturating 98%; no acute respiratory distress noted. Left FA IV 20g intact and patent. Right upper arm AV shunt noted with good bruit and thrill. Denies pain at this time. Bed locked, alarmed, and in lowest position, side rails up x3, and call light left within reach. Will continue with plan of care and monitor patient.
--- NOTE | 2018-11-23 09:45 | NUR ---
HAND-OFF: Report given to DENISSE Vera. Pt in stable condition.
--- NOTE | 2018-11-23 12:00 | NUR ---
NURSE NOTES: Dr Camilo at bedside while patient being dialyzed. Ordered another dialysis for tomorrow 11/24/18, dialysis nurse at bedside Bladimir Schwarz aware.
--- NOTE | 2018-11-23 12:14 | Consultation ---
History of Present Illness General Date patient seen: Nov 23, 2018 Chief Complaint: Edema Present Illness HPI pateint with past medical history of DM, HTN, ESRD on HD MWF presented with complaints of SOB on Friday. Per pt and son and bedside, pt had normal HD session of Friday, then on she suddenly developed SOB worsening on Friday, therefore was brought to ED. Pt states symptoms are worse when laying flat, also complains or worsening LE edema. Pt denies fevers, chills, n/v/c/d, urinary complaints or abdominal complaints Allergies: Coded Allergies: PENICILLINS (Verified Allergy, Unknown, 03/23/18) Patient states feeling chills Medication History Scheduled Aspirin* (Aspir 81*), 81 MG ORAL DAILY, (Reported) Atorvastatin Calcium* (Atorvastatin Calcium*), 40 MG ORAL BEDTIME, (Reported) Famotidine (Pepcid Ac), 20 MG PO BID, (Reported) Hydralazine Hcl* (Hydralazine Hcl*), 50 MG ORAL EVERY 8 HOURS, (Reported) Metoprolol Tartrate* (Metoprolol Tartrate*), 25 MG ORAL BID, (Reported) Nifedipine Er* (Nifedipine Er*), 60 MG ORAL DAILY, (Reported) Ranitidine Hcl* (Zantac*), 150 MG ORAL TWICE A DAY Scheduled PRN Ondansetron Odt* (Zofran Odt*), 4 MG BC EVERY 6 HOURS PRN for Nausea & Vomiting Patient History Healthcare decision maker Sol Herron Resuscitation status Full Code Advanced Directive on File Physical Exam Last 24 Hour Vital Signs Date Time Temp Pulse Resp B/P (MAP) Pulse Ox O2 Delivery O2 Flow Rate FiO2 11/23/18 11:29 68 20 98 11/23/18 09:42 65 18 98 11/23/18 09:06 58 164/70 11/23/18 09:06 67 18 98 11/23/18 09:00 58 164/70 11/23/18 08:00 Bi-pap 11/23/18 08:00 60 11/23/18 08:00 35 11/23/18 08:00 97.5 58 12 161/62 (95) 98 11/23/18 06:31 61 14 100 Facial 35 11/23/18 05:29 64 15 99 Facial 35 11/23/18 04:00 35 11/23/18 04:00 96.4 67 18 144/59 (87) 99 11/23/18 04:00 65 11/23/18 04:00 Bi-pap 11/23/18 02:31 62 14 99 Facial 35 11/23/18 01:27 Bi-pap 11/23/18 01:18 62 11/23/18 01:00 97.3 63 12 146/66 (92) 99 11/23/18 01:00 35 11/23/18 00:56 98.4 61 14 126/41 100 3.0 35 11/23/18 00:21 66 14 100 Bi-Pap 35 11/23/18 00:21 66 14 100 Facial 35 11/23/18 00:06 98.4 61 17 126/41 88 Nasal Cannula 3.0 11/22/18 23:05 172/49 11/22/18 22:58 98.4 84 20 172/49 100 Nasal Cannula 2.0 11/22/18 21:56 98.4 90 16 200/75 96 Nasal Cannula 2.0 11/22/18 21:56 90 16 Nasal Cannula 2.0 11/22/18 21:56 98.4 90 16 200/75 (116) 96 Room Air Intake and Output 11/22/18 11/23/18 19:00 07:00 Intake Total 0 ml Balance 0 ml Intake Oral 0 ml # Bowel Movements 2 Laboratory Tests Test 11/22/18 22:05 11/22/18 22:27 11/22/18 23:24 11/23/18 03:30 Urine Color Pale yellow Urine Appearance Slightly cloudy Urine pH 9 (4.5-8.0) Urine Specific [place] 1.020 (1.005-1.035) Urine Protein 4+ (NEGATIVE) H Urine Glucose (UA) 2+ (NEGATIVE) H Urine Ketones Negative (NEGATIVE) Urine Blood 3+ (NEGATIVE) H Urine Nitrite Negative (NEGATIVE) Urine Bilirubin Negative (NEGATIVE) Urine Urobilinogen Normal MG/DL (0.0-1.0) Urine Leukocyte Esterase 2+ (NEGATIVE) H Urine RBC 5-10 /HPF (0 - 2) H Urine WBC 10-15 /HPF (0 - 2) H Urine Squamous Epithelial Cells Few /LPF (NONE/OCC) Urine Bacteria Occasional /HPF (NONE) White Blood Count 10.0 K/UL (4.8-10.8) 6.5 K/UL (4.8-10.8) Red Blood Count 3.73 M/UL (4.20-5.40) L 3.25 M/UL (4.20-5.40) L Hemoglobin 10.5 G/DL (12.0-16.0) L 9.4 G/DL (12.0-16.0) L Hematocrit 31.7 % (37.0-47.0) L 28.7 % (37.0-47.0) L Mean Corpuscular Volume 85 FL (80-99) 88 FL (80-99) Mean Corpuscular Hemoglobin 28.2 PG (27.0-31.0) 29.0 PG (27.0-31.0) Mean Corpuscular Hemoglobin Concent 33.1 G/DL (32.0-36.0) 33.0 G/DL (32.0-36.0) Red Cell Distribution Width 13.2 % (11.6-14.8) 13.1 % (11.6-14.8) Platelet Count 162 K/UL (150-450) 138 K/UL (150-450) L Mean Platelet Volume 6.0 FL (6.5-10.1) L 6.7 FL (6.5-10.1) Neutrophils (%) (Auto) 82.8 % (45.0-75.0) H 71.7 % (45.0-75.0) Lymphocytes (%) (Auto) 7.7 % (20.0-45.0) L 16.8 % (20.0-45.0) L Monocytes (%) (Auto) 5.1 % (1.0-10.0) 6.8 % (1.0-10.0) Eosinophils (%) (Auto) 3.1 % (0.0-3.0) H 3.5 % (0.0-3.0) H Basophils (%) (Auto) 1.3 % (0.0-2.0) 1.3 % (0.0-2.0) Troponin I 0.000 ng/mL (0.000-0.056) Sodium Level 140 MMOL/L (136-145) 140 MMOL/L (136-145) Potassium Level 6.8 MMOL/L (3.5-5.1) *H 5.1 MMOL/L (3.5-5.1) Chloride Level 100 MMOL/L (98-107) 101 MMOL/L (98-107) Carbon Dioxide Level 29 MMOL/L (21-32) 29 MMOL/L (21-32) Anion Gap 11 mmol/L (5-15) 10 mmol/L (5-15) Blood Urea Nitrogen 46 mg/dL (7-18) H 46 mg/dL (7-18) H Creatinine 7.2 MG/DL (0.55-1.30) H 7.3 MG/DL (0.55-1.30) H Estimat Glomerular Filtration Rate mL/min (>60) mL/min (>60) Glucose Level 154 MG/DL (74-106) H 69 MG/DL (74-106) L Calcium Level 10.0 MG/DL (8.5-10.1) 9.1 MG/DL (8.5-10.1) Total Bilirubin 0.6 MG/DL (0.2-1.0) Aspartate Amino Transf (AST/SGOT) 24 U/L (15-37) Alanine Aminotransferase (ALT/SGPT) 23 U/L (12-78) Alkaline Phosphatase 171 U/L (46-116) H Total Creatine Kinase 60 U/L (26-308) Creatine Kinase MB 0.8 NG/ML (0.0-3.6) Creatine Kinase MB Relative Index 1.3 Pro-B-Type Natriuretic Peptide 03548 pg/mL (0-125) H Total Protein 8.9 G/DL (6.4-8.2) H Albumin 4.2 G/DL (3.4-5.0) Globulin 4.7 g/dL Albumin/Globulin Ratio 0.9 (1.0-2.7) L Calcium (Send out) Pending Phosphorus Level 4.0 MG/DL (2.5-4.9) Magnesium Level 2.5 MG/DL (1.8-2.4) H Iron Level 28 ug/dL (50-175) L Total Iron Binding Capacity 193 ug/dL (250-450) L Percent Iron Saturation 15 % (15-50) Unsaturated Iron Binding 165 ug/dL (112-346) Vitamin D 25-Hydroxy Pending 25-Hydroxy Vitamin D2 Pending 25-Hydroxy Vitamin D3 Pending Parathyroid Hormone (Intact) Pending Test 11/23/18 06:45 Arterial Blood pH 7.433 (7.350-7.450) Arterial Blood Partial Pressure CO2 45.3 mmHg (35.0-45.0) H Arterial Blood Partial Pressure O2 75.9 mmHg (75.0-100.0) Arterial Blood HCO3 29.6 mmol/L (22.0-26.0) H Arterial Blood Oxygen Saturation 94.4 % (95-100) L Arterial Blood Base Excess 4.7 (-2-2) H Benito Test Positive Microbiology Date/Time Source Procedure Growth Status 11/22/18 22:05 Urine,Clean Catch Urine Culture - Preliminary NO GROWTH Resulted 11/23/18 00:00 Rectum Received Height (Feet): 5 Height (Inches): 5.00 Weight (Pounds): 124 Medications Current Medications Medications (Trade) Dose Ordered Sig/Oren Route PRN Reason Start Time Stop Time Status Last Admin Dose Admin Acetaminophen (Tylenol) 650 mg Q6H PRN ORAL Mild Pain/Temp > 100.5 11/23/18 01:45 12/23/18 01:44 11/23/18 04:23 Aspirin (Ecotrin) 81 mg DAILY ORAL 11/23/18 09:00 12/23/18 08:59 11/23/18 09:06 Atorvastatin Calcium (Lipitor) 40 mg BEDTIME ORAL 11/23/18 21:00 12/23/18 20:59 Famotidine (Pepcid) 20 mg BID ORAL 11/23/18 09:00 12/23/18 08:59 11/23/18 09:06 Hydralazine HCl (Apresoline) 50 mg EVERY 8 HOURS ORAL 11/23/18 06:00 12/23/18 05:59 Metoprolol Tartrate (Lopressor) 25 mg BID ORAL 11/23/18 09:00 12/23/18 08:59 Nifedipine (Procardia XL) 60 mg DAILY ORAL 11/23/18 09:00 12/23/18 08:59 11/23/18 09:06 Ondansetron HCl (Zofran ODT) 4 mg EVERY 6 HOURS PRN ORAL Nausea & Vomiting 11/23/18 01:45 12/23/18 01:44 Assessment/Plan Diagnosis [place] I: #ESRD on HD #hyperkalemia #volume overload - HD today - strict I&Os - daily weight - cardiology eval - ISS - monitor BP - resume home meds Vonda Camilo M.D. Nov 23, 2018 12:14
--- NOTE | 2018-11-23 12:37 | Diagnostic Imaging Report ---
Indication: Dyspnea Comparison: 03/23/2018 A single view chest radiograph was obtained. Findings: Patchy interstitial and some alveolar airspace disease noted. Heart size is within normal limits. Aorta is calcified. IMPRESSION: Pulmonary edema
--- NOTE | 2018-11-23 12:50 | Consultation ---
History of Present Illness General Date patient seen: Nov 23, 2018 Time patient seen: 12:49 Chief Complaint: Edema Present Illness HPI 73 y/o female with DM, HTN, ESRD presents w/SOB edema chest pain. Placed on BipAP for respiratory distress. Echo in 2018 with normal LV function. Potassium and BNP elevated. Allergies: Coded Allergies: PENICILLINS (Verified Allergy, Unknown, 03/23/18) Patient states feeling chills Medication History Scheduled Aspirin* (Aspir 81*), 81 MG ORAL DAILY, (Reported) Atorvastatin Calcium* (Atorvastatin Calcium*), 40 MG ORAL BEDTIME, (Reported) Famotidine (Pepcid Ac), 20 MG PO BID, (Reported) Hydralazine Hcl* (Hydralazine Hcl*), 50 MG ORAL EVERY 8 HOURS, (Reported) Metoprolol Tartrate* (Metoprolol Tartrate*), 25 MG ORAL BID, (Reported) Nifedipine Er* (Nifedipine Er*), 60 MG ORAL DAILY, (Reported) Ranitidine Hcl* (Zantac*), 150 MG ORAL TWICE A DAY Scheduled PRN Ondansetron Odt* (Zofran Odt*), 4 MG BC EVERY 6 HOURS PRN for Nausea & Vomiting Patient History Healthcare decision maker Sol Herron Resuscitation status Full Code Advanced Directive on File Review of Systems Constitutional: Reports: malaise, weakness Eye: Reports: no symptoms ENT: Reports: no symptoms Respiratory: Reports: orthopnea, shortness of breath Cardiovascular: Reports: chest pain Gastrointestinal: Reports: no symptoms Genitourinary: Reports: no symptoms Musculoskeletal: Reports: no symptoms Skin: Reports: no symptoms Psychiatric: Reports: no symptoms Neurological: Reports: no symptoms Endocrine: Reports: no symptoms Physical Exam General Appearance: lethargic, mild distress Lines, tubes and drains: peripheral HEENT: normocephalic, atraumatic, anicteric, mucous membranes moist, PERRL Neck: non-tender, normal alignment, supple, normal inspection Respiratory/Chest: respiratory distress, crackles/rales Cardiovascular/Chest: normal peripheral pulses, normal rate, regular rhythm Abdomen: normal bowel sounds, non tender, no organomegaly, no mass Extremities: normal range of motion, non-tender, normal inspection Skin Exam: normal pigmentation 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, no motor/sensory deficits Last 24 Hour Vital Signs Date Time Temp Pulse Resp B/P (MAP) Pulse Ox O2 Delivery O2 Flow Rate FiO2 11/23/18 12:00 2.0 11/23/18 12:00 97.7 58 16 169/66 (100) 100 11/23/18 12:00 Nasal Cannula 2.0 11/23/18 11:40 63 11/23/18 11:29 68 20 98 11/23/18 09:42 65 18 98 11/23/18 09:06 58 164/70 11/23/18 09:06 67 18 98 11/23/18 09:00 58 164/70 11/23/18 08:00 Bi-pap 11/23/18 08:00 60 11/23/18 08:00 35 11/23/18 08:00 97.5 58 12 161/62 (95) 98 11/23/18 06:31 61 14 100 Facial 35 11/23/18 05:29 64 15 99 Facial 35 11/23/18 04:00 35 11/23/18 04:00 96.4 67 18 144/59 (87) 99 11/23/18 04:00 65 11/23/18 04:00 Bi-pap 11/23/18 02:31 62 14 99 Facial 35 11/23/18 01:27 Bi-pap 11/23/18 01:18 62 11/23/18 01:00 97.3 63 12 146/66 (92) 99 11/23/18 01:00 35 11/23/18 00:56 98.4 61 14 126/41 100 3.0 35 11/23/18 00:21 66 14 100 Bi-Pap 35 11/23/18 00:21 66 14 100 Facial 35 11/23/18 00:06 98.4 61 17 126/41 88 Nasal Cannula 3.0 11/22/18 23:05 172/49 11/22/18 22:58 98.4 84 20 172/49 100 Nasal Cannula 2.0 11/22/18 21:56 98.4 90 16 200/75 96 Nasal Cannula 2.0 11/22/18 21:56 90 16 Nasal Cannula 2.0 11/22/18 21:56 98.4 90 16 200/75 (116) 96 Room Air Intake and Output 11/22/18 11/23/18 19:00 07:00 Intake Total 0 ml Balance 0 ml Intake Oral 0 ml # Bowel Movements 2 Laboratory Tests Test 11/22/18 22:05 11/22/18 22:27 11/22/18 23:24 11/23/18 03:30 Urine Color Pale yellow Urine Appearance Slightly cloudy Urine pH 9 (4.5-8.0) Urine Specific [place] 1.020 (1.005-1.035) Urine Protein 4+ (NEGATIVE) H Urine Glucose (UA) 2+ (NEGATIVE) H Urine Ketones Negative (NEGATIVE) Urine Blood 3+ (NEGATIVE) H Urine Nitrite Negative (NEGATIVE) Urine Bilirubin Negative (NEGATIVE) Urine Urobilinogen Normal MG/DL (0.0-1.0) Urine Leukocyte Esterase 2+ (NEGATIVE) H Urine RBC 5-10 /HPF (0 - 2) H Urine WBC 10-15 /HPF (0 - 2) H Urine Squamous Epithelial Cells Few /LPF (NONE/OCC) Urine Bacteria Occasional /HPF (NONE) White Blood Count 10.0 K/UL (4.8-10.8) 6.5 K/UL (4.8-10.8) Red Blood Count 3.73 M/UL (4.20-5.40) L 3.25 M/UL (4.20-5.40) L Hemoglobin 10.5 G/DL (12.0-16.0) L 9.4 G/DL (12.0-16.0) L Hematocrit 31.7 % (37.0-47.0) L 28.7 % (37.0-47.0) L Mean Corpuscular Volume 85 FL (80-99) 88 FL (80-99) Mean Corpuscular Hemoglobin 28.2 PG (27.0-31.0) 29.0 PG (27.0-31.0) Mean Corpuscular Hemoglobin Concent 33.1 G/DL (32.0-36.0) 33.0 G/DL (32.0-36.0) Red Cell Distribution Width 13.2 % (11.6-14.8) 13.1 % (11.6-14.8) Platelet Count 162 K/UL (150-450) 138 K/UL (150-450) L Mean Platelet Volume 6.0 FL (6.5-10.1) L 6.7 FL (6.5-10.1) Neutrophils (%) (Auto) 82.8 % (45.0-75.0) H 71.7 % (45.0-75.0) Lymphocytes (%) (Auto) 7.7 % (20.0-45.0) L 16.8 % (20.0-45.0) L Monocytes (%) (Auto) 5.1 % (1.0-10.0) 6.8 % (1.0-10.0) Eosinophils (%) (Auto) 3.1 % (0.0-3.0) H 3.5 % (0.0-3.0) H Basophils (%) (Auto) 1.3 % (0.0-2.0) 1.3 % (0.0-2.0) Troponin I 0.000 ng/mL (0.000-0.056) Sodium Level 140 MMOL/L (136-145) 140 MMOL/L (136-145) Potassium Level 6.8 MMOL/L (3.5-5.1) *H 5.1 MMOL/L (3.5-5.1) Chloride Level 100 MMOL/L (98-107) 101 MMOL/L (98-107) Carbon Dioxide Level 29 MMOL/L (21-32) 29 MMOL/L (21-32) Anion Gap 11 mmol/L (5-15) 10 mmol/L (5-15) Blood Urea Nitrogen 46 mg/dL (7-18) H 46 mg/dL (7-18) H Creatinine 7.2 MG/DL (0.55-1.30) H 7.3 MG/DL (0.55-1.30) H Estimat Glomerular Filtration Rate mL/min (>60) mL/min (>60) Glucose Level 154 MG/DL (74-106) H 69 MG/DL (74-106) L Calcium Level 10.0 MG/DL (8.5-10.1) 9.1 MG/DL (8.5-10.1) Total Bilirubin 0.6 MG/DL (0.2-1.0) Aspartate Amino Transf (AST/SGOT) 24 U/L (15-37) Alanine Aminotransferase (ALT/SGPT) 23 U/L (12-78) Alkaline Phosphatase 171 U/L (46-116) H Total Creatine Kinase 60 U/L (26-308) Creatine Kinase MB 0.8 NG/ML (0.0-3.6) Creatine Kinase MB Relative Index 1.3 Pro-B-Type Natriuretic Peptide 32184 pg/mL (0-125) H Total Protein 8.9 G/DL (6.4-8.2) H Albumin 4.2 G/DL (3.4-5.0) Globulin 4.7 g/dL Albumin/Globulin Ratio 0.9 (1.0-2.7) L Calcium (Send out) Pending Phosphorus Level 4.0 MG/DL (2.5-4.9) Magnesium Level 2.5 MG/DL (1.8-2.4) H Iron Level 28 ug/dL (50-175) L Total Iron Binding Capacity 193 ug/dL (250-450) L Percent Iron Saturation 15 % (15-50) Unsaturated Iron Binding 165 ug/dL (112-346) Vitamin D 25-Hydroxy Pending 25-Hydroxy Vitamin D2 Pending 25-Hydroxy Vitamin D3 Pending Parathyroid Hormone (Intact) Pending Test 11/23/18 06:45 Arterial Blood pH 7.433 (7.350-7.450) Arterial Blood Partial Pressure CO2 45.3 mmHg (35.0-45.0) H Arterial Blood Partial Pressure O2 75.9 mmHg (75.0-100.0) Arterial Blood HCO3 29.6 mmol/L (22.0-26.0) H Arterial Blood Oxygen Saturation 94.4 % (95-100) L Arterial Blood Base Excess 4.7 (-2-2) H Benito Test Positive Microbiology Date/Time Source Procedure Growth Status 11/22/18 22:05 Urine,Clean Catch Urine Culture - Preliminary NO GROWTH Resulted 11/23/18 00:00 Rectum Received Height (Feet): 5 Height (Inches): 5.00 Weight (Pounds): 124 Medications Current Medications Medications (Trade) Dose Ordered Sig/Oren Route PRN Reason Start Time Stop Time Status Last Admin Dose Admin Acetaminophen (Tylenol) 650 mg Q6H PRN ORAL Mild Pain/Temp > 100.5 11/23/18 01:45 12/23/18 01:44 11/23/18 04:23 Aspirin (Ecotrin) 81 mg DAILY ORAL 11/23/18 09:00 12/23/18 08:59 11/23/18 09:06 Atorvastatin Calcium (Lipitor) 40 mg BEDTIME ORAL 11/23/18 21:00 12/23/18 20:59 Famotidine (Pepcid) 20 mg BID ORAL 11/23/18 09:00 12/23/18 08:59 11/23/18 09:06 Hydralazine HCl (Apresoline) 50 mg EVERY 8 HOURS ORAL 11/23/18 06:00 12/23/18 05:59 Metoprolol Tartrate (Lopressor) 25 mg BID ORAL 11/23/18 09:00 12/23/18 08:59 Nifedipine (Procardia XL) 60 mg DAILY ORAL 11/23/18 09:00 12/23/18 08:59 11/23/18 09:06 Ondansetron HCl (Zofran ODT) 4 mg EVERY 6 HOURS PRN ORAL Nausea & Vomiting 11/23/18 01:45 12/23/18 01:44 Assessment/Plan Status: stable Diagnosis [place] I: Assessment/Plan Assessment/Plan 1. Hypertension, BP well controlled, continue minoxidil along with the other anti-hypertensive medications. Echo showed normal LVEF at 60% with normal PAP in 2018. 2. End-stage renal disease, on hemodialysis 3 days a week. 3. History of diabetes mellitus, continue aggressive control of sugars 4. Dyslipidemia with low HDL, continue statins. 5. Chest pain - nuclear stress test when stable 6. Fluids overload/edema - BiPAP, HD per nephrology Kvng London MD Nov 23, 2018 12:50
--- NOTE | 2018-11-23 13:00 | NUR ---
NURSE NOTES: Hemodialysis completed, 3L output. Patient tolerated procedure well. Will continue to monitor.
--- NOTE | 2018-11-23 19:00 | NUR ---
HAND-OFF: Report given to DENISSE Craven. Patient in stable condition.
--- NOTE | 2018-11-23 19:01 | NUR ---
NURSE NOTES: Received bedside report from DENISSE Vera.Patient stable,A&O x4,SR on environmental monitoring specialist,2L/min N/C tolerated well,BS active in all quadrants,IV asymptomatic,intact on L f/arm 20 G SL and HANK shunt for HD,last HD was 11/23 3L fluid is out,next dialysis scheduled tomorrow by ,bed secured in a low safety position,call light within a reach,family at bedside.Will continue to monitor and follow POC
--- NOTE | 2018-11-23 20:52 | History and Physical ---
History of Present Illness General Date patient seen: Nov 23, 2018 Time patient seen: 09:00 Reason for Hospitalization: Edema Present Illness HPI 73 yo F with PMH fo DM, HTN, ESRD on HD MWF presented with complaints of SOB on Friday. Per pt and son and bedside, pt had normal HD session of Friday, then on she suddenly developed SOB worsening on Friday, therefore was brought to ED. Pt states symptoms are worse when laying flat, also complains or worsening LE edema. Pt denies fevers, chills, n/v/c/d, urinary complaints or abdominal complaints Allergies: Coded Allergies: PENICILLINS (Verified Allergy, Unknown, 03/23/18) Patient states feeling chills Medication History Scheduled Aspirin* (Aspir 81*), 81 MG ORAL DAILY, (Reported) Atorvastatin Calcium* (Atorvastatin Calcium*), 40 MG ORAL BEDTIME, (Reported) Famotidine (Pepcid Ac), 20 MG PO BID, (Reported) Hydralazine Hcl* (Hydralazine Hcl*), 50 MG ORAL EVERY 8 HOURS, (Reported) Metoprolol Tartrate* (Metoprolol Tartrate*), 25 MG ORAL BID, (Reported) Nifedipine Er* (Nifedipine Er*), 60 MG ORAL DAILY, (Reported) Ranitidine Hcl* (Zantac*), 150 MG ORAL TWICE A DAY Scheduled PRN Ondansetron Odt* (Zofran Odt*), 4 MG BC EVERY 6 HOURS PRN for Nausea & Vomiting Patient History History Provided By: Patient, Family Member Healthcare decision maker Sol Herron Resuscitation status Full Code Advanced Directive on File Review of Systems Constitutional: Reports: no symptoms Eye: Reports: no symptoms ENT: Reports: no symptoms Respiratory: Reports: orthopnea, shortness of breath Cardiovascular: Reports: no symptoms Gastrointestinal: Reports: no symptoms Genitourinary: Reports: no symptoms Musculoskeletal: Reports: no symptoms Psychiatric: Reports: no symptoms Neurological: Reports: no symptoms Endocrine: Reports: no symptoms Physical Exam General Appearance: WD/WN, no apparent distress Lines, tubes and drains: peripheral HEENT: normocephalic, atraumatic Neck: non-tender, normal alignment Respiratory/Chest: chest wall non-tender, lungs clear, normal breath sounds Cardiovascular/Chest: normal peripheral pulses, normal rate, regular rhythm Abdomen: normal bowel sounds Extremities: normal range of motion Skin Exam: normal pigmentation Neurologic: ob gyn II-XII grossly normal Last 24 Hour Vital Signs Date Time Temp Pulse Resp B/P (MAP) Pulse Ox O2 Delivery O2 Flow Rate FiO2 11/23/18 17:02 67 162/70 11/23/18 16:00 Nasal Cannula 2.0 11/23/18 16:00 59 11/23/18 16:00 97.5 67 16 162/70 (100) 98 11/23/18 16:00 2.0 11/23/18 15:29 66 18 97 11/23/18 13:52 165/73 11/23/18 12:00 2.0 11/23/18 12:00 97.7 58 16 169/66 (100) 100 11/23/18 12:00 Nasal Cannula 2.0 11/23/18 11:40 63 11/23/18 11:29 68 20 98 11/23/18 09:42 65 18 98 11/23/18 09:10 98 Mechanical Ventilator 2.0 11/23/18 09:06 58 164/70 11/23/18 09:06 67 18 98 11/23/18 09:00 58 164/70 11/23/18 08:00 Bi-pap 11/23/18 08:00 60 11/23/18 08:00 35 11/23/18 08:00 97.5 58 12 161/62 (95) 98 11/23/18 06:31 61 14 100 Facial 35 11/23/18 05:29 64 15 99 Facial 35 11/23/18 04:00 35 11/23/18 04:00 96.4 67 18 144/59 (87) 99 11/23/18 04:00 65 11/23/18 04:00 Bi-pap 11/23/18 02:31 62 14 99 Facial 35 11/23/18 01:27 Bi-pap 11/23/18 01:18 62 11/23/18 01:00 97.3 63 12 146/66 (92) 99 11/23/18 01:00 35 11/23/18 00:56 98.4 61 14 126/41 100 3.0 35 11/23/18 00:21 66 14 100 Bi-Pap 35 11/23/18 00:21 66 14 100 Facial 35 11/23/18 00:06 98.4 61 17 126/41 88 Nasal Cannula 3.0 11/22/18 23:05 172/49 11/22/18 22:58 98.4 84 20 172/49 100 Nasal Cannula 2.0 11/22/18 21:56 98.4 90 16 200/75 96 Nasal Cannula 2.0 11/22/18 21:56 90 16 Nasal Cannula 2.0 11/22/18 21:56 98.4 90 16 200/75 (116) 96 Room Air Intake and Output 11/22/18 11/23/18 19:00 07:00 Intake Total 0 ml Balance 0 ml Intake Oral 0 ml # Bowel Movements 2 Laboratory Tests Test 11/22/18 22:05 11/22/18 22:27 11/22/18 23:24 11/23/18 03:30 Urine Color Pale yellow Urine Appearance Slightly cloudy Urine pH 9 (4.5-8.0) Urine Specific Edwards 1.020 (1.005-1.035) Urine Protein 4+ (NEGATIVE) H Urine Glucose (UA) 2+ (NEGATIVE) H Urine Ketones Negative (NEGATIVE) Urine Blood 3+ (NEGATIVE) H Urine Nitrite Negative (NEGATIVE) Urine Bilirubin Negative (NEGATIVE) Urine Urobilinogen Normal MG/DL (0.0-1.0) Urine Leukocyte Esterase 2+ (NEGATIVE) H Urine RBC 5-10 /HPF (0 - 2) H Urine WBC 10-15 /HPF (0 - 2) H Urine Squamous Epithelial Cells Few /LPF (NONE/OCC) Urine Bacteria Occasional /HPF (NONE) White Blood Count 10.0 K/UL (4.8-10.8) 6.5 K/UL (4.8-10.8) Red Blood Count 3.73 M/UL (4.20-5.40) L 3.25 M/UL (4.20-5.40) L Hemoglobin 10.5 G/DL (12.0-16.0) L 9.4 G/DL (12.0-16.0) L Hematocrit 31.7 % (37.0-47.0) L 28.7 % (37.0-47.0) L Mean Corpuscular Volume 85 FL (80-99) 88 FL (80-99) Mean Corpuscular Hemoglobin 28.2 PG (27.0-31.0) 29.0 PG (27.0-31.0) Mean Corpuscular Hemoglobin Concent 33.1 G/DL (32.0-36.0) 33.0 G/DL (32.0-36.0) Red Cell Distribution Width 13.2 % (11.6-14.8) 13.1 % (11.6-14.8) Platelet Count 162 K/UL (150-450) 138 K/UL (150-450) L Mean Platelet Volume 6.0 FL (6.5-10.1) L 6.7 FL (6.5-10.1) Neutrophils (%) (Auto) 82.8 % (45.0-75.0) H 71.7 % (45.0-75.0) Lymphocytes (%) (Auto) 7.7 % (20.0-45.0) L 16.8 % (20.0-45.0) L Monocytes (%) (Auto) 5.1 % (1.0-10.0) 6.8 % (1.0-10.0) Eosinophils (%) (Auto) 3.1 % (0.0-3.0) H 3.5 % (0.0-3.0) H Basophils (%) (Auto) 1.3 % (0.0-2.0) 1.3 % (0.0-2.0) Troponin I 0.000 ng/mL (0.000-0.056) Sodium Level 140 MMOL/L (136-145) 140 MMOL/L (136-145) Potassium Level 6.8 MMOL/L (3.5-5.1) *H 5.1 MMOL/L (3.5-5.1) Chloride Level 100 MMOL/L (98-107) 101 MMOL/L (98-107) Carbon Dioxide Level 29 MMOL/L (21-32) 29 MMOL/L (21-32) Anion Gap 11 mmol/L (5-15) 10 mmol/L (5-15) Blood Urea Nitrogen 46 mg/dL (7-18) H 46 mg/dL (7-18) H Creatinine 7.2 MG/DL (0.55-1.30) H 7.3 MG/DL (0.55-1.30) H Estimat Glomerular Filtration Rate mL/min (>60) mL/min (>60) Glucose Level 154 MG/DL (74-106) H 69 MG/DL (74-106) L Calcium Level 10.0 MG/DL (8.5-10.1) 9.1 MG/DL (8.5-10.1) Total Bilirubin 0.6 MG/DL (0.2-1.0) Aspartate Amino Transf (AST/SGOT) 24 U/L (15-37) Alanine Aminotransferase (ALT/SGPT) 23 U/L (12-78) Alkaline Phosphatase 171 U/L (46-116) H Total Creatine Kinase 60 U/L (26-308) Creatine Kinase MB 0.8 NG/ML (0.0-3.6) Creatine Kinase MB Relative Index 1.3 Pro-B-Type Natriuretic Peptide 10791 pg/mL (0-125) H Total Protein 8.9 G/DL (6.4-8.2) H Albumin 4.2 G/DL (3.4-5.0) Globulin 4.7 g/dL Albumin/Globulin Ratio 0.9 (1.0-2.7) L Calcium (Send out) Pending Phosphorus Level 4.0 MG/DL (2.5-4.9) Magnesium Level 2.5 MG/DL (1.8-2.4) H Iron Level 28 ug/dL (50-175) L Total Iron Binding Capacity 193 ug/dL (250-450) L Percent Iron Saturation 15 % (15-50) Unsaturated Iron Binding 165 ug/dL (112-346) Vitamin D 25-Hydroxy Pending 25-Hydroxy Vitamin D2 Pending 25-Hydroxy Vitamin D3 Pending Parathyroid Hormone (Intact) Pending Test 11/23/18 06:45 Arterial Blood pH 7.433 (7.350-7.450) Arterial Blood Partial Pressure CO2 45.3 mmHg (35.0-45.0) H Arterial Blood Partial Pressure O2 75.9 mmHg (75.0-100.0) Arterial Blood HCO3 29.6 mmol/L (22.0-26.0) H Arterial Blood Oxygen Saturation 94.4 % (95-100) L Arterial Blood Base Excess 4.7 (-2-2) H Benito Test Positive Microbiology Date/Time Source Procedure Growth Status 11/22/18 22:05 Urine,Clean Catch Urine Culture - Preliminary NO GROWTH Resulted 11/23/18 00:00 Rectum Received Height (Feet): 5 Height (Inches): 5.00 Weight (Pounds): 124 Medications Current Medications Medications (Trade) Dose Ordered Sig/Oren Route PRN Reason Start Time Stop Time Status Last Admin Dose Admin Acetaminophen (Tylenol) 650 mg Q6H PRN ORAL Mild Pain/Temp > 100.5 11/23/18 01:45 12/23/18 01:44 11/23/18 13:05 Aspirin (Ecotrin) 81 mg DAILY ORAL 11/23/18 09:00 12/23/18 08:59 11/23/18 09:06 Atorvastatin Calcium (Lipitor) 40 mg BEDTIME ORAL 11/23/18 21:00 12/23/18 20:59 Famotidine (Pepcid) 20 mg BID ORAL 11/23/18 09:00 12/23/18 08:59 11/23/18 17:02 Hydralazine HCl (Apresoline) 50 mg EVERY 8 HOURS ORAL 11/23/18 06:00 12/23/18 05:59 11/23/18 13:52 Metoprolol Tartrate (Lopressor) 25 mg BID ORAL 11/23/18 09:00 12/23/18 08:59 11/23/18 17:02 Nifedipine (Procardia XL) 60 mg DAILY ORAL 11/23/18 09:00 12/23/18 08:59 11/23/18 09:06 Ondansetron HCl (Zofran ODT) 4 mg EVERY 6 HOURS PRN ORAL Nausea & Vomiting 11/23/18 01:45 12/23/18 01:44 Assessment/Plan Assessment/Plan: 73 year old female with PMH of DM, ESRD on HD, HTN admitted for SOB likley 2/2 fluid overload 2/2 ESRD vs new onset CHF. #SOB likley 2/2 Fluid overload 2/2 ESRD vs new onset CHF #ESRD on HD MWF -Renal consulted -HD per renal -BiPAP transition to [place] if able -Cardiology consulted -Echo Pending -monitor electrolytes #HTN -Cont RHIA meds #HLD --Cont statins Code: Linux Admin Engineer of not may not reflect time of encounter Cyndi Santos MD Nov 23, 2018 20:52
[2018-11-23] MEDS: Atorvastatin 20mg tab ORAL SCH (21:05)
[2018-11-24] VITALS: BP 163/60
[2018-11-24 04:00] VITALS: BP 139/65
[2018-11-24 05:41] LABS: BASOPHILS % (AUTO) 1.7 % (0.0-2.0); EOSINOPHILS % (AUTO) 5.3 % (0.0-3.0); HEMATOCRIT 30.8 % (37.0-47.0); HEMOGLOBIN 9.9 G/DL (12.0-16.0); LYMPHOCYTES % (AUTO) 22.4 % (20.0-45.0); MEAN CORPUSCULAR VOLUME 88 FL (80-99); MONOCYTES % (AUTO) 7.2 % (1.0-10.0); NEUTROPHILS % (AUTO) 63.4 % (45.0-75.0); PLATELET COUNT 139 K/UL (150-450); RED BLOOD COUNT 3.49 M/UL (4.20-5.40); RED CELL DISTRIBUTION WIDTH 13.2 % (11.6-14.8); WHITE BLOOD COUNT 4.2 K/UL (4.8-10.8)
[2018-11-24] MEDS: HydrALAZINE 50mg tab ORAL SCH ×3 (05:48→21:21)
[2018-11-24 05:58] LABS: ANION GAP 9 mmol/L (5-15); BLOOD UREA NITROGEN 32 mg/dL (7-18); CALCIUM 9.1 MG/DL (8.5-10.1); CARBON DIOXIDE 31 MMOL/L (21-32); CHLORIDE 101 MMOL/L (98-107); CREATININE 5.4 MG/DL (0.55-1.30); PHOSPHORUS 4.6 MG/DL (2.5-4.9); SODIUM 141 MMOL/L (136-145)
--- NOTE | 2018-11-24 06:53 | Cardiology Progress Note ---
Assessment/Plan Status: stable Assessment/Plan Assessment/Plan Assessment/Plan 1. Hypertension: Continue metoprolol, hydralazine, nifedipine, adjust doses as needed Echo showed normal LVEF at 60% with normal PAP in 2018. 2. End-stage renal disease, on hemodialysis 3 days a week. CXR with fluid overload BNP elevated -Continue Bipap prn 3. History of diabetes mellitus, continue aggressive control of sugars 4. Dyslipidemia with low HDL, continue statins. 5. Chest pain - nuclear stress test when stable Echocardiogram to assess wall motion pending Subjective Cardiovascular: Reports: no symptoms Respiratory: Reports: no symptoms Gastrointestinal/Abdominal: Reports: no symptoms Genitourinary: Reports: no symptoms Subjective No acute events, BP elevated, no distress, no SOB. Objective Last 24 Hour Vital Signs Date Time Temp Pulse Resp B/P (MAP) Pulse Ox O2 Delivery O2 Flow Rate FiO2 11/24/18 05:48 158/72 11/24/18 04:00 97.5 66 16 139/65 (89) 98 11/24/18 04:00 2.0 11/24/18 04:00 Nasal Cannula 2.0 11/24/18 04:00 64 11/24/18 00:00 Nasal Cannula 2.0 11/24/18 00:00 97.5 68 16 163/60 (94) 97 11/23/18 23:41 68 11/23/18 21:05 160/57 11/23/18 20:00 97.5 60 16 142/58 (86) 98 11/23/18 20:00 2.0 11/23/18 20:00 56 18 96 Nasal Cannula 2.0 28 11/23/18 20:00 Nasal Cannula 2.0 11/23/18 20:00 96 Nasal Cannula 2.0 28 11/23/18 19:27 65 11/23/18 17:02 67 162/70 11/23/18 16:00 Nasal Cannula 2.0 11/23/18 16:00 59 11/23/18 16:00 97.5 67 16 162/70 (100) 98 11/23/18 16:00 2.0 11/23/18 15:29 66 18 97 11/23/18 13:52 165/73 11/23/18 12:00 2.0 11/23/18 12:00 97.7 58 16 169/66 (100) 100 11/23/18 12:00 Nasal Cannula 2.0 11/23/18 11:40 63 11/23/18 11:29 68 20 98 11/23/18 09:42 65 18 98 11/23/18 09:10 98 Mechanical Ventilator 2.0 11/23/18 09:06 58 164/70 11/23/18 09:06 67 18 98 11/23/18 09:00 58 164/70 11/23/18 08:00 Bi-pap 11/23/18 08:00 60 11/23/18 08:00 35 11/23/18 08:00 97.5 58 12 161/62 (95) 98 General Appearance: no apparent distress, alert EENT: PERRL/EOMI, normal ENT inspection, TMs normal, pharynx normal Neck: non-tender, normal alignment, supple, normal inspection, no JVD Rhythm: NSR Cardiovascular: normal peripheral pulses, regular rhythm Respiratory/Chest: chest wall non-tender, lungs clear, normal breath sounds Abdomen: normal bowel sounds, non tender, soft, no organomegaly Extremities: normal range of motion, non-tender, normal inspection, no calf tenderness, no swelling Neurologic: umbrella repairer II-XII grossly normal, no motor/sensory deficits Intake and Output 11/23/18 11/24/18 18:59 06:59 Intake Total 150 ml 240 ml Balance 150 ml 240 ml Intake Oral 150 ml 240 ml # Voids 2 1 # Bowel Movements 2 Laboratory Tests Test 11/24/18 04:19 White Blood Count 4.2 K/UL (4.8-10.8) L Red Blood Count 3.49 M/UL (4.20-5.40) L Hemoglobin 9.9 G/DL (12.0-16.0) L Hematocrit 30.8 % (37.0-47.0) L Mean Corpuscular Volume 88 FL (80-99) Mean Corpuscular Hemoglobin 28.4 PG (27.0-31.0) Mean Corpuscular Hemoglobin Concent 32.1 G/DL (32.0-36.0) Red Cell Distribution Width 13.2 % (11.6-14.8) Platelet Count 139 K/UL (150-450) L Mean Platelet Volume 6.5 FL (6.5-10.1) Neutrophils (%) (Auto) 63.4 % (45.0-75.0) Lymphocytes (%) (Auto) 22.4 % (20.0-45.0) Monocytes (%) (Auto) 7.2 % (1.0-10.0) Eosinophils (%) (Auto) 5.3 % (0.0-3.0) H Basophils (%) (Auto) 1.7 % (0.0-2.0) Sodium Level 141 MMOL/L (136-145) Potassium Level 5.0 MMOL/L (3.5-5.1) Chloride Level 101 MMOL/L (98-107) Carbon Dioxide Level 31 MMOL/L (21-32) Anion Gap 9 mmol/L (5-15) Blood Urea Nitrogen 32 mg/dL (7-18) H Creatinine 5.4 MG/DL (0.55-1.30) H Estimat Glomerular Filtration Rate mL/min (>60) Glucose Level 106 MG/DL (74-106) Calcium Level 9.1 MG/DL (8.5-10.1) Phosphorus Level 4.6 MG/DL (2.5-4.9) Magnesium Level 2.3 MG/DL (1.8-2.4) Microbiology Date/Time Source Procedure Growth Status 11/22/18 22:05 Urine,Clean Catch Urine Culture - Preliminary NO GROWTH Resulted 11/23/18 00:00 Rectum Received Kvng London MD Nov 24, 2018 06:53
--- NOTE | 2018-11-24 07:15 | NUR ---
HAND-OFF: Report given to DENISSE Wilkins.Patient stable.
--- NOTE | 2018-11-24 07:20 | NUR ---
NURSE NOTES: Report received from Merissa Biggs RN.Pt asleep in bed easily awaken with verbal command ,noted no resp distress denies any c/o pain or discomfort,SR on the monitor, HL IV site to LFA intact, with AV Shunt to HANK ,RT arm noted swollen but pt denies any pain,skin warm and dry,SR up x2 call keller within reach ,family member at bedside,bed lock in lowest position,will continue with plans of care,breakfast tray served.
[2018-11-24 08:00] VITALS: BP 164/68
--- NOTE | 2018-11-24 08:50 | NUR ---
NURSE NOTES: Due medic at 0900 hold,per charge authorizer Afsaneh,warehouse logistics manager called to hold BP medic,he is coming to do Hemodialysis.
[2018-11-24] MEDS: Metoprolol 25mg tab ORAL SCH ×2 (09:00→18:15)
--- NOTE | 2018-11-24 09:26 | NUR ---
WELDER PRODUCTION LINE ARCPRODUCTION HARDENER SI:PULMONARY EDEMA . HYPERTENSIVE CHF VS: BP 163/60, P 64, T 97.5, RR 16, SpO2 97 on 2.0L NC WBC 4.2, RBC 3.49, H&H 30.8/9.9, Plt Count 139, BUN 32, Cr 5.4 IS:APRESOLINE 50mg TYLENOL 650mg NIFEDIPINE 60mg LOPRESSOR 25mg ECHO PENDING SDU STATUS
--- NOTE | 2018-11-24 10:24 | NUR ---
RD ASSESSMENT & RECOMMENDATIONS SEE CARE ACTIVITY FOR COMPLETE ASSESSMENT DAILY ESTIMATED NEEDS: Needs based on ESRD on HD 55kg 30-35 kcals/kg 0171-3366 total kcals 1.2-1.8 g protein/kg 64-95 g total protein Fluid per MD, on HD NUTRITION DIAGNOSIS: Increased kcal and protein needs r/t renal dysfunction as evidenced by pt w/ ESRD on HD CURRENT DIET: Renal PO DIET RECOMMENDATIONS: Maintain Renal diet ADDITIONAL RECOMMENDATIONS: 1) Monitor BG and need for added CCHO diet need for NISS 2) Obtain a standing weight POST HD 3) Add HIGH PROTEIN snack BID in b/w meals 4) Nepro x1 tetra rae daily as needed
--- NOTE | 2018-11-24 11:00 | NUR ---
NURSE NOTES: Seen by Dr Santos,covering for the [employer],orders for PT and transfer to Telemetry okayed.
--- NOTE | 2018-11-24 11:00 | NUR ---
NURSE NOTES: tongue and groove machine operator at bedside,dialysis in progress,family member at bedside,pt stable,tolerating procedure.
--- NOTE | 2018-11-24 11:10 | NUR ---
*-* INSURANCE *-* ALL CLINICALS AND REVIEWS HAVE BEEN FAXED TO: JENNIFER MCKINNEY:KESHAV P:[phone] F:[phone]
[2018-11-24 12:06] VITALS: BP 165/71
--- NOTE | 2018-11-24 13:30 | Consultation ---
History of Present Illness General Date patient seen: Nov 24, 2018 Chief Complaint: Edema Present Illness Allergies: Coded Allergies: PENICILLINS (Verified Allergy, Unknown, 03/23/18) Patient states feeling chills Medication History Scheduled Aspirin* (Aspir 81*), 81 MG ORAL DAILY, (Reported) Atorvastatin Calcium* (Atorvastatin Calcium*), 40 MG ORAL BEDTIME, (Reported) Famotidine (Pepcid Ac), 20 MG PO BID, (Reported) Hydralazine Hcl* (Hydralazine Hcl*), 50 MG ORAL EVERY 8 HOURS, (Reported) Metoprolol Tartrate* (Metoprolol Tartrate*), 25 MG ORAL BID, (Reported) Nifedipine Er* (Nifedipine Er*), 60 MG ORAL DAILY, (Reported) Ranitidine Hcl* (Zantac*), 150 MG ORAL TWICE A DAY Scheduled PRN Ondansetron Odt* (Zofran Odt*), 4 MG BC EVERY 6 HOURS PRN for Nausea & Vomiting Patient History Healthcare decision maker Sol Herron Resuscitation status Full Code Advanced Directive on File Physical Exam Last 24 Hour Vital Signs Date Time Temp Pulse Resp B/P (MAP) Pulse Ox O2 Delivery O2 Flow Rate FiO2 11/24/18 12:06 2.0 11/24/18 12:06 97.2 69 20 165/71 (102) 98 11/24/18 12:00 Nasal Cannula 2.0 11/24/18 09:00 65 164/68 11/24/18 08:19 65 11/24/18 08:00 Nasal Cannula 2.0 11/24/18 08:00 97.7 66 18 164/68 (100) 99 11/24/18 08:00 2.0 11/24/18 05:48 158/72 11/24/18 04:00 97.5 66 16 139/65 (89) 98 11/24/18 04:00 2.0 11/24/18 04:00 Nasal Cannula 2.0 11/24/18 04:00 64 11/24/18 00:00 Nasal Cannula 2.0 11/24/18 00:00 97.5 68 16 163/60 (94) 97 11/23/18 23:41 68 11/23/18 21:05 160/57 11/23/18 20:00 97.5 60 16 142/58 (86) 98 11/23/18 20:00 2.0 11/23/18 20:00 56 18 96 Nasal Cannula 2.0 28 11/23/18 20:00 Nasal Cannula 2.0 11/23/18 20:00 96 Nasal Cannula 2.0 28 11/23/18 19:27 65 11/23/18 17:02 67 162/70 11/23/18 16:00 Nasal Cannula 2.0 11/23/18 16:00 59 11/23/18 16:00 97.5 67 16 162/70 (100) 98 11/23/18 16:00 2.0 11/23/18 15:29 66 18 97 11/23/18 13:52 165/73 Intake and Output 11/23/18 11/24/18 19:00 07:00 Intake Total 150 ml 240 ml Balance 150 ml 240 ml Intake Oral 150 ml 240 ml # Voids 2 1 # Bowel Movements 2 Laboratory Tests Test 11/24/18 04:19 White Blood Count 4.2 K/UL (4.8-10.8) L Red Blood Count 3.49 M/UL (4.20-5.40) L Hemoglobin 9.9 G/DL (12.0-16.0) L Hematocrit 30.8 % (37.0-47.0) L Mean Corpuscular Volume 88 FL (80-99) Mean Corpuscular Hemoglobin 28.4 PG (27.0-31.0) Mean Corpuscular Hemoglobin Concent 32.1 G/DL (32.0-36.0) Red Cell Distribution Width 13.2 % (11.6-14.8) Platelet Count 139 K/UL (150-450) L Mean Platelet Volume 6.5 FL (6.5-10.1) Neutrophils (%) (Auto) 63.4 % (45.0-75.0) Lymphocytes (%) (Auto) 22.4 % (20.0-45.0) Monocytes (%) (Auto) 7.2 % (1.0-10.0) Eosinophils (%) (Auto) 5.3 % (0.0-3.0) H Basophils (%) (Auto) 1.7 % (0.0-2.0) Sodium Level 141 MMOL/L (136-145) Potassium Level 5.0 MMOL/L (3.5-5.1) Chloride Level 101 MMOL/L (98-107) Carbon Dioxide Level 31 MMOL/L (21-32) Anion Gap 9 mmol/L (5-15) Blood Urea Nitrogen 32 mg/dL (7-18) H Creatinine 5.4 MG/DL (0.55-1.30) H Estimat Glomerular Filtration Rate mL/min (>60) Glucose Level 106 MG/DL (74-106) Calcium Level 9.1 MG/DL (8.5-10.1) Phosphorus Level 4.6 MG/DL (2.5-4.9) Magnesium Level 2.3 MG/DL (1.8-2.4) Height (Feet): 5 Height (Inches): 5.00 Weight (Pounds): 119 Medications Current Medications Medications (Trade) Dose Ordered Sig/Oren Route PRN Reason Start Time Stop Time Status Last Admin Dose Admin Acetaminophen (Tylenol) 650 mg Q6H PRN ORAL Mild Pain/Temp > 100.5 11/23/18 01:45 12/23/18 01:44 11/24/18 06:07 Aspirin (Ecotrin) 81 mg DAILY ORAL 11/23/18 09:00 12/23/18 08:59 11/23/18 09:06 Atorvastatin Calcium (Lipitor) 40 mg BEDTIME ORAL 11/23/18 21:00 12/23/18 20:59 11/23/18 21:05 Famotidine (Pepcid) 20 mg BID ORAL 11/23/18 09:00 12/23/18 08:59 11/23/18 17:02 Hydralazine HCl (Apresoline) 50 mg EVERY 8 HOURS ORAL 11/23/18 06:00 12/23/18 05:59 11/24/18 05:48 Metoprolol Tartrate (Lopressor) 25 mg BID ORAL 11/23/18 09:00 12/23/18 08:59 11/23/18 17:02 Nifedipine (Procardia XL) 60 mg DAILY ORAL 11/23/18 09:00 12/23/18 08:59 11/23/18 09:06 Ondansetron HCl (Zofran ODT) 4 mg EVERY 6 HOURS PRN ORAL Nausea & Vomiting 11/23/18 01:45 12/23/18 01:44 Assessment/Plan Assessment/Plan: HEME/ONC CONSULTATION DOS: 11/24/2018 REFERRING MD: Pierre Devries REASON FOR CONSULT: Pancytopenia, anemia HPI 73 yo F with PMH fo DM, HTN, ESRD on HD MWF presented with complaints of SOB on Friday. Per pt and son and bedside, pt had normal HD session of Friday, then on Friday she suddenly developed SOB worsening on Friday, therefore was brought to ED. Pt states symptoms are worse when laying flat, also complains or worsening LE edema. Pt denies fevers, chills, n/v/c/d. Review of cbc showed low levels of wbc, hgb and plt. Heme/Onc services were consulted for the evaluation and management of pancytopenia and anemia. Allergies: Coded Allergies: PENICILLINS (Verified Allergy, Unknown, 03/23/18) Patient states feeling chills Medication History Scheduled Aspirin* (Aspir 81*), 81 MG ORAL DAILY, (Reported) Atorvastatin Calcium* (Atorvastatin Calcium*), 40 MG ORAL BEDTIME, (Reported) Famotidine (Pepcid Ac), 20 MG PO BID, (Reported) Hydralazine Hcl* (Hydralazine Hcl*), 50 MG ORAL EVERY 8 HOURS, (Reported) Metoprolol Tartrate* (Metoprolol Tartrate*), 25 MG ORAL BID, (Reported) Nifedipine Er* (Nifedipine Er*), 60 MG ORAL DAILY, (Reported) Ranitidine Hcl* (Zantac*), 150 MG ORAL TWICE A DAY Scheduled PRN Ondansetron Odt* (Zofran Odt*), 4 MG BC EVERY 6 HOURS PRN for Nausea & Vomiting Patient History Healthcare decision maker Sol Herron Resuscitation status Full Code Advanced Directive on File Review of Systems Constitutional: Reports: malaise, weakness Eye: Reports: no symptoms ENT: Reports: no symptoms Respiratory: Reports: orthopnea, shortness of breath Cardiovascular: Reports: chest pain Gastrointestinal: Reports: no symptoms Genitourinary: Reports: no symptoms Musculoskeletal: Reports: no symptoms Skin: Reports: no symptoms Psychiatric: Reports: no symptoms Neurological: Reports: no symptoms Endocrine: Reports: no symptoms Physical Exam General Appearance: lethargic, mild distress Lines, tubes and drains: peripheral HEENT: normocephalic, atraumatic, anicteric, mucous membranes moist, PERRL Neck: non-tender, normal alignment, supple, normal inspection Respiratory/Chest: respiratory distress, crackles/rales Cardiovascular/Chest: normal peripheral pulses, rrr Abdomen: normal bowel sounds, non tender, no orgm, no mass Extremities: normal range of motion, non-tender, normal inspection Skin Exam: normal pigmentation 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, no motor/sensory deficits Laboratory Tests Test 11/24/18 04:19 White Blood Count 4.2 K/UL (4.8-10.8) L Red Blood Count 3.49 M/UL (4.20-5.40) L Hemoglobin 9.9 G/DL (12.0-16.0) L Hematocrit 30.8 % (37.0-47.0) L Mean Corpuscular Volume 88 FL (80-99) Mean Corpuscular Hemoglobin 28.4 PG (27.0-31.0) Mean Corpuscular Hemoglobin Concent 32.1 G/DL (32.0-36.0) Red Cell Distribution Width 13.2 % (11.6-14.8) Platelet Count 139 K/UL (150-450) L Mean Platelet Volume 6.5 FL (6.5-10.1) Neutrophils (%) (Auto) 63.4 % (45.0-75.0) Lymphocytes (%) (Auto) 22.4 % (20.0-45.0) Monocytes (%) (Auto) 7.2 % (1.0-10.0) Eosinophils (%) (Auto) 5.3 % (0.0-3.0) H Basophils (%) (Auto) 1.7 % (0.0-2.0) Sodium Level 141 MMOL/L (136-145) Potassium Level 5.0 MMOL/L (3.5-5.1) Chloride Level 101 MMOL/L (98-107) Carbon Dioxide Level 31 MMOL/L (21-32) Anion Gap 9 mmol/L (5-15) Blood Urea Nitrogen 32 mg/dL (7-18) H Creatinine 5.4 MG/DL (0.55-1.30) H Estimat Glomerular Filtration Rate mL/min (>60) Glucose Level 106 MG/DL (74-106) Calcium Level 9.1 MG/DL (8.5-10.1) Phosphorus Level 4.6 MG/DL (2.5-4.9) Magnesium Level 2.3 MG/DL (1.8-2.4) Active Scripts Medications Dose Route/Sig Max Daily Dose Days Date Category Zantac* (Ranitidine HCl) 150 Mg Tablet 150 Mg ORAL TWICE A DAY 03/23/18 Rx Zofran Odt* (Ondansetron HCl) 4 Mg Tab.rapdis 4 Mg BC EVERY 6 HOURS PRN 03/23/18 Rx Pepcid Ac (Famotidine) 20 Mg Tablet 20 Mg PO BID 03/17/18 Reported Atorvastatin Calcium* (Atorvastatin Calcium) 40 Mg Tablet 40 Mg ORAL BEDTIME 03/17/18 Reported Aspir 81* (Aspirin) 81 Mg Tablet.dr 81 Mg ORAL DAILY 03/17/18 Reported Metoprolol Tartrate* (Metoprolol Tartrate) 25 Mg Tablet 25 Mg ORAL BID 03/17/18 Reported Nifedipine Er* (Nifedipine) 60 Mg Tab.er.24 60 Mg ORAL DAILY 03/17/18 Reported Hydralazine Hcl* (Hydralazine HCl) 50 Mg Tablet 50 Mg ORAL EVERY 8 HOURS 03/17/18 Reported ASSESSMENT AND RECOMMENDATIONS # Pancytopenia -- multiple etiologies could be related to underlying liver disease, medication-induced, infection versus viral syndrome --> peripheral smear has been ordered and does not show significant abnormalities --> Medications have been reviewed --> Continue to monitor for improvement, trend cbc --> Hep panel and HIV have been ordered --> US abd ordered to r/o cirrhosis and hepatosplenomegaly --> reverse isolation if ANC is <2000 --> Give neupogen if ANC <1000 --> Transfuse if hgb <7, with 1 unit prbc --> consider bone marrow biopsy if no other causes are found # Anemia of chronic disease (or of iron deficiency) due to underlying chronic medical issues, multifactorial --> Anemia workup has been ordered, rule out gi bleed --> No evidence of hemolysis is noted, peripheral smear has been reviewed. --> Hgb goal >7. Transfuse prn. --> Epogen or iron at this time is not particularly indicated --> Medications have been reviewed --> low threshold for gi evaluation in case has occult + --> bone marrow biopsy is not indicated given the other more likely causes # Hypertension. Cardiology is follwoing, appreciate recs. --> BP well controlled, continue minoxidil along with the other anti- hypertensive medications. 2. End-stage renal disease. Nephro is follwoing, appreciate recs. --> on hemodialysis 3 days a week. # History of diabetes mellitus --> continue aggressive control of sugars # Dyslipidemia with low HDL --> continue statins. # Fluids overload/edema - BiPAP --> HD per nephrology # CLEMENCIA cummins 2/2 Fluid overload 2/2 ESRD vs new onset CHF The time the note is entered does not reflect the time the patient was examined. I greatly appreciate the consultation. Darrell Sommers MD Nov 24, 2018 13:29
--- NOTE | 2018-11-24 14:00 | NUR ---
NURSE NOTES: Hemodialysis done,removed 3L fluid,pt stable in no distress family members at bedside.
[2018-11-24] MEDS: Aspirin EC 81mg tab ORAL SCH (14:44)
--- NOTE | 2018-11-24 15:30 | NUR ---
NURSE NOTES: Dr Camilo at bedside seen pt discussed with family members re plans of care,ordered another HD for tomorrow with [facility].
[2018-11-24 16:00] VITALS: BP 162/67
--- NOTE | 2018-11-24 18:43 | NUR ---
NURSE NOTES: Pt resting in bed appears tired after HD,will eat dinner later,family member at bedside.
--- NOTE | 2018-11-24 18:59 | General Progress Note ---
Assessment/Plan Status: stable Assessment/Plan: 73 year old female with PMH of DM, ESRD on HD, HTN admitted for SOB likley 2/2 fluid overload 2/2 ESRD vs new onset CHF. 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 Pt has no complaints Objective Last 24 Hour Vital Signs Date Time Temp Pulse Resp B/P (MAP) Pulse Ox O2 Delivery O2 Flow Rate FiO2 11/24/18 18:15 64 162/67 11/24/18 16:00 85 11/24/18 16:00 2.0 11/24/18 16:00 97.9 64 20 162/67 (98) 100 11/24/18 16:00 Nasal Cannula 2.0 11/24/18 15:07 61 18 97 Nasal Cannula 2.0 28 11/24/18 15:07 97 Nasal Cannula 2.0 28 11/24/18 14:45 69 165/71 11/24/18 14:44 165/71 11/24/18 12:06 2.0 11/24/18 12:06 97.2 69 20 165/71 (102) 98 11/24/18 12:00 66 11/24/18 12:00 Nasal Cannula 2.0 11/24/18 09:00 65 164/68 11/24/18 08:19 65 11/24/18 08:00 Nasal Cannula 2.0 11/24/18 08:00 97.7 66 18 164/68 (100) 99 11/24/18 08:00 2.0 11/24/18 05:48 158/72 11/24/18 04:00 97.5 66 16 139/65 (89) 98 11/24/18 04:00 2.0 11/24/18 04:00 Nasal Cannula 2.0 11/24/18 04:00 64 11/24/18 00:00 Nasal Cannula 2.0 11/24/18 00:00 97.5 68 16 163/60 (94) 97 11/23/18 23:41 68 11/23/18 21:05 160/57 11/23/18 20:00 97.5 60 16 142/58 (86) 98 11/23/18 20:00 2.0 11/23/18 20:00 56 18 96 Nasal Cannula 2.0 28 11/23/18 20:00 Nasal Cannula 2.0 11/23/18 20:00 96 Nasal Cannula 2.0 28 11/23/18 19:27 65 Intake and Output 11/23/18 11/24/18 19:00 07:00 Intake Total 150 ml 240 ml Balance 150 ml 240 ml Intake Oral 150 ml 240 ml # Voids 2 1 # Bowel Movements 2 Laboratory Tests 11/24/18 04:19: White Blood Count 4.2L, Red Blood Count 3.49L, Hemoglobin 9.9L, Hematocrit 30.8L , Mean Corpuscular Volume 88, Mean Corpuscular Hemoglobin 28.4, Mean Corpuscular Hemoglobin Concent 32.1, Red Cell Distribution Width 13.2, Platelet Count 139L, Mean Platelet Volume 6.5, Neutrophils (%) (Auto) 63.4, Lymphocytes ( %) (Auto) 22.4, Monocytes (%) (Auto) 7.2, Eosinophils (%) (Auto) 5.3H, Basophils (%) (Auto) 1.7, Sodium Level 141, Potassium Level 5.0, Chloride Level 101, Carbon Dioxide Level 31, Anion Gap 9, Blood Urea Nitrogen 32H, Creatinine 5.4H, Estimat Glomerular Filtration Rate , Glucose Level 106, Calcium Level 9.1 , Phosphorus Level 4.6, Magnesium Level 2.3 Height (Feet): 5 Height (Inches): 5.00 Weight (Pounds): 119 Objective General Appearance: WD/WN, no apparent distress Lines, tubes and drains: peripheral HEENT: normocephalic, atraumatic Neck: non-tender, normal alignment Respiratory/Chest: chest wall non-tender, lungs clear, normal breath sounds Cardiovascular/Chest: normal peripheral pulses, normal rate, regular rhythm Abdomen: normal bowel sounds Extremities: normal range of motion, AV fistula on R arm Skin Exam: normal pigmentation 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
--- NOTE | 2018-11-24 19:05 | NUR ---
NURSE NOTES: Pt report received from Geeta SALCEDO PREETHI. Pt appears to be in stable condition laying in bed with family members at bed side. pt is alert and oriented times 4 and able to follow commands. pt pupils are round and reactive to light and accommodating bilaterally. Pt has a surveillance monitor showing NSR, no signs/ symptoms of cardiac distress noted. pt is on 2L NC and is satting at 99%, no signs/ symptoms of acute resp distress noted. all saftey precautions are active, bed rails up times 3, call light within easy reach, bed locked and low, bed armed. pt L FA 20 IV is intact. will follow plan of care. Addendum: 11/24/18 at 2049 by CHRISTOPHER MONTANO RN NURSE NOTES: Pt report received from Emelia Jerez RN PREETHI. Pt appears to be in stable condition laying in bed with family members at bed side. pt is alert and oriented times 4 and able to follow commands. pt pupils are round and reactive to light and accommodating bilaterally. Pt has a surveillance monitor showing NSR, no signs/ symptoms of cardiac distress noted. pt is on 2L NC and is satting at 99%, no signs/ symptoms of acute resp distress noted. all saftey precautions are active, bed rails up times 3, call light within easy reach, bed locked and low, bed armed. pt L FA 20 IV is intact. will follow plan of care.
--- NOTE | 2018-11-24 19:15 | NUR ---
HAND-OFF: Report given to Guerita Raygoza RN..
[2018-11-24 20:00] VITALS: BP 162/68
[2018-11-24] MEDS: Atorvastatin 20mg tab ORAL SCH (20:16)
[2018-11-24 21:54] LABS: INR 0.9 (0.9-1.1)
[2018-11-24 22:11] LABS: FERRITIN 1306 NG/ML (8-388); LACTATE DEHYDROGENASE 176 U/L (81-234)
[2018-11-24 22:26] LABS: % IRON SATURATION 25 % (15-50); IRON 51 ug/dL (50-175); TOTAL IRON BINDING CAPACITY 203 ug/dL (250-450)
--- NOTE | 2018-11-24 23:02 | Nephrology Progress Note ---
Assessment/Plan Problem List: (1) Gastroenteritis (2) ESRD (end stage renal disease) on dialysis (3) Respiratory failure with hypoxia (4) Hyperkalemia (5) Pulmonary edema (6) Hypertensive CHF Plan #ESRD on HD #hyperkalemia #volume overload - HD today and again tomorrow - strict I&Os - daily weight - cardiology eval - ISS - monitor BP - resume home meds Subjective Interval Events/Complaints s/p HD yestedray less SOB today feelig Ok HD again today Constitutional: Denies: no symptoms, chills, diaphoresis, fever, malaise, weakness, other HEENT: Denies: no symptoms, eye pain, blurred vision, tearing, double vision, ear pain, ear discharge, nose pain, nose congestion, throat pain, throat swelling, mouth pain, mouth swelling, other Genitourinary: Denies: no symptoms, burning, discharge, frequency, flank pain, hematuria, incontinence, pain, urgency, other Neurologic/Psychiatric: Denies: no symptoms, anxiety, depressed, emotional problems, headache, numbness, paresthesia, pre-existing deficit, seizure, tingling, tremors, weakness, other Objective Objective Last 24 Hour Vital Signs Date Time Temp Pulse Resp B/P (MAP) Pulse Ox O2 Delivery O2 Flow Rate FiO2 11/24/18 21:21 162/68 11/24/18 20:00 97.9 66 20 162/68 (99) 100 11/24/18 20:00 2.0 11/24/18 20:00 Nasal Cannula 2.0 11/24/18 19:10 98 Nasal Cannula 2.0 28 11/24/18 19:10 61 18 98 Nasal Cannula 2.0 28 11/24/18 19:04 67 11/24/18 18:15 64 162/67 11/24/18 16:00 85 11/24/18 16:00 2.0 11/24/18 16:00 97.9 64 20 162/67 (98) 100 11/24/18 16:00 Nasal Cannula 2.0 11/24/18 15:07 61 18 97 Nasal Cannula 2.0 28 11/24/18 15:07 97 Nasal Cannula 2.0 28 11/24/18 14:45 69 165/71 11/24/18 14:44 165/71 11/24/18 12:06 2.0 11/24/18 12:06 97.2 69 20 165/71 (102) 98 11/24/18 12:00 66 11/24/18 12:00 Nasal Cannula 2.0 11/24/18 09:00 65 164/68 11/24/18 08:19 65 11/24/18 08:00 Nasal Cannula 2.0 11/24/18 08:00 97.7 66 18 164/68 (100) 99 11/24/18 08:00 2.0 11/24/18 05:48 158/72 11/24/18 04:00 97.5 66 16 139/65 (89) 98 11/24/18 04:00 2.0 11/24/18 04:00 Nasal Cannula 2.0 11/24/18 04:00 64 11/24/18 00:00 Nasal Cannula 2.0 11/24/18 00:00 97.5 68 16 163/60 (94) 97 11/23/18 23:41 68 Intake and Output 11/23/18 11/24/18 19:00 07:00 Intake Total 150 ml 240 ml Balance 150 ml 240 ml Intake Oral 150 ml 240 ml # Voids 2 1 # Bowel Movements 2 Laboratory Tests 11/24/18 04:19: White Blood Count 4.2L, Red Blood Count 3.49L, Hemoglobin 9.9L, Hematocrit 30.8L , Mean Corpuscular Volume 88, Mean Corpuscular Hemoglobin 28.4, Mean Corpuscular Hemoglobin Concent 32.1, Red Cell Distribution Width 13.2, Platelet Count 139L, Mean Platelet Volume 6.5, Neutrophils (%) (Auto) 63.4, Lymphocytes ( %) (Auto) 22.4, Monocytes (%) (Auto) 7.2, Eosinophils (%) (Auto) 5.3H, Basophils (%) (Auto) 1.7, Differential Total Cells Counted 100, Neutrophils % ( Manual) 64, Lymphocytes % (Manual) 25, Monocytes % (Manual) 2, Eosinophils % ( Manual) 2, Basophils % (Manual) 3H, Band Neutrophils 4, Platelet Estimate DecreasedL, Platelet Morphology Normal, Red Blood Cell Morphology Normal, Sodium Level 141, Potassium Level 5.0, Chloride Level 101, Carbon Dioxide Level 31, Anion Gap 9, Blood Urea Nitrogen 32H, Creatinine 5.4H, Estimat Glomerular Filtration Rate , Glucose Level 106, Calcium Level 9.1, Phosphorus Level 4.6, Magnesium Level 2.3 11/24/18 21:23: Reticulocyte Count 0.9, Prothrombin Time 10.1, Prothromb Time International Ratio 0.9, Iron Level 51, Total Iron Binding Capacity 203L, Percent Iron Saturation 25, Unsaturated Iron Binding 152, Ferritin 1306H, Lactate Dehydrogenase 176, Vitamin B12 Level 1154H, Hepatitis A IgM Antibody [Pending], Hepatitis B Surface Antigen [Pending], Hepatitis B Core IgM Antibody [Pending], Hepatitis C Antibody [Pending], HIV (1&2) Antibody Rapid Negative Height (Feet): 5 Height (Inches): 5.00 Weight (Pounds): 119 General Appearance: WD/WN EENT: PERRL/EOMI Neck: non-tender, normal alignment Cardiovascular: normal peripheral pulses, normal rate, regular rhythm, no gallop/murmur Respiratory/Chest: chest wall non-tender, lungs clear, normal breath sounds Abdomen: normal bowel sounds, non tender, no organomegaly Vonda Camilo M.D. Nov 24, 2018 23:02
[2018-11-25] VITALS: BP 155/65
[2018-11-25 04:00] VITALS: BP 158/60
[2018-11-25] MEDS: HydrALAZINE 50mg tab ORAL SCH ×3 (05:03→21:27)
[2018-11-25 05:36] LABS: BASOPHILS % (AUTO) 4.5 % (0.0-2.0); EOSINOPHILS % (AUTO) 6.1 % (0.0-3.0); HEMATOCRIT 31.3 % (37.0-47.0); HEMOGLOBIN 9.9 G/DL (12.0-16.0); LYMPHOCYTES % (AUTO) 23.5 % (20.0-45.0); MEAN CORPUSCULAR VOLUME 90 FL (80-99); MONOCYTES % (AUTO) 9.2 % (1.0-10.0); NEUTROPHILS % (AUTO) 56.8 % (45.0-75.0); PLATELET COUNT 137 K/UL (150-450); RED BLOOD COUNT 3.49 M/UL (4.20-5.40); RED CELL DISTRIBUTION WIDTH 13.4 % (11.6-14.8)
--- NOTE | 2018-11-25 06:20 | NUR ---
HAND-OFF: Report given to Zenon SALCEDO TELE.
[2018-11-25 06:23] LABS: ANION GAP 8 mmol/L (5-15); BLOOD UREA NITROGEN 31 mg/dL (7-18); CALCIUM 8.9 MG/DL (8.5-10.1); CARBON DIOXIDE 32 MMOL/L (21-32); CHLORIDE 99 MMOL/L (98-107); CREATININE 5.3 MG/DL (0.55-1.30); PHOSPHORUS 4.7 MG/DL (2.5-4.9); POTASSIUM 5.2 MMOL/L (3.5-5.1); SODIUM 139 MMOL/L (136-145)
--- NOTE | 2018-11-25 06:30 | NUR ---
NURSE NOTES: Received pt from SDU via hospital bed. Pt is awake, AOx4. In no acute distress. IV line intact and patent. Bed in lowest position, call light within reach. Will continue plan of care.
--- NOTE | 2018-11-25 06:34 | Cardiology Progress Note ---
Assessment/Plan Status: stable Assessment/Plan Assessment/Plan Assessment/Plan 1. Hypertension: Continue metoprolol, hydralazine, nifedipine, adjust doses as needed Echo showed normal LVEF at 60% with normal PAP in 2018. Repeat Echo on this admission with PAP 50 mmHg and pleural effusion, mild valve regurgitation, normal LV function 2. End-stage renal disease, on hemodialysis 3 days a week. CXR with fluid overload BNP elevated -Continue Bipap prn -Continue HD per nephrology 3. History of diabetes mellitus, continue aggressive control of sugars 4. Dyslipidemia with low HDL, continue statins. 5. Chest pain - nuclear stress test when stable as outpatient Subjective Cardiovascular: Reports: no symptoms Respiratory: Reports: no symptoms Gastrointestinal/Abdominal: Reports: no symptoms Genitourinary: Reports: no symptoms Subjective No acute events, BP elevated, no distress, no SOB. Objective Last 24 Hour Vital Signs Date Time Temp Pulse Resp B/P (MAP) Pulse Ox O2 Delivery O2 Flow Rate FiO2 11/25/18 05:03 161/62 11/25/18 04:00 Nasal Cannula 2.0 11/25/18 04:00 2.0 11/25/18 04:00 56 11/25/18 04:00 98.1 58 20 158/60 (92) 100 11/25/18 00:00 Nasal Cannula 2.0 11/25/18 00:00 98.2 60 20 155/65 (95) 100 11/25/18 00:00 2.0 11/24/18 23:38 66 11/24/18 21:21 162/68 11/24/18 20:00 97.9 66 20 162/68 (99) 100 11/24/18 20:00 2.0 11/24/18 20:00 Nasal Cannula 2.0 11/24/18 19:10 98 Nasal Cannula 2.0 28 11/24/18 19:10 61 18 98 Nasal Cannula 2.0 28 11/24/18 19:04 67 11/24/18 18:15 64 162/67 11/24/18 16:00 85 11/24/18 16:00 2.0 11/24/18 16:00 97.9 64 20 162/67 (98) 100 11/24/18 16:00 Nasal Cannula 2.0 11/24/18 15:07 61 18 97 Nasal Cannula 2.0 28 11/24/18 15:07 97 Nasal Cannula 2.0 28 11/24/18 14:45 69 165/71 11/24/18 14:44 165/71 11/24/18 12:06 2.0 11/24/18 12:06 97.2 69 20 165/71 (102) 98 11/24/18 12:00 66 11/24/18 12:00 Nasal Cannula 2.0 11/24/18 09:00 65 164/68 11/24/18 08:19 65 11/24/18 08:00 Nasal Cannula 2.0 11/24/18 08:00 97.7 66 18 164/68 (100) 99 11/24/18 08:00 2.0 General Appearance: no apparent distress, alert EENT: PERRL/EOMI, normal ENT inspection, TMs normal, pharynx normal Neck: non-tender, normal alignment, supple, normal inspection, no JVD Rhythm: NSR Cardiovascular: normal peripheral pulses, normal rate, regular rhythm Respiratory/Chest: chest wall non-tender, lungs clear Abdomen: normal bowel sounds, non tender, soft, no organomegaly Extremities: normal range of motion, non-tender Intake and Output 11/24/18 11/25/18 18:59 06:59 Intake Total 3580 ml Output Total 1 ml Balance 3579 ml Intake Oral 580 ml Hemodialysis 3000 ml Output Urine Total 1 ml Laboratory Tests Test 11/24/18 21:23 11/25/18 04:30 Reticulocyte Count 0.9 % (0.5-2.0) Prothrombin Time 10.1 SEC (9.30-11.50) Prothromb Time International Ratio 0.9 (0.9-1.1) Iron Level 51 ug/dL (50-175) Total Iron Binding Capacity 203 ug/dL (250-450) L Percent Iron Saturation 25 % (15-50) Unsaturated Iron Binding 152 ug/dL (112-346) Ferritin 1306 NG/ML (8-388) H Lactate Dehydrogenase 176 U/L (81-234) Vitamin B12 Level 1154 PG/ML (193-986) H Hepatitis A IgM Antibody Pending Hepatitis B Surface Antigen Pending Hepatitis B Core IgM Antibody Pending Hepatitis C Antibody Pending HIV (1&2) Antibody Rapid Negative (NEGATIVE) White Blood Count 4.0 K/UL (4.8-10.8) L Red Blood Count 3.49 M/UL (4.20-5.40) L Hemoglobin 9.9 G/DL (12.0-16.0) L Hematocrit 31.3 % (37.0-47.0) L Mean Corpuscular Volume 90 FL (80-99) Mean Corpuscular Hemoglobin 28.3 PG (27.0-31.0) Mean Corpuscular Hemoglobin Concent 31.6 G/DL (32.0-36.0) L Red Cell Distribution Width 13.4 % (11.6-14.8) Platelet Count 137 K/UL (150-450) L Mean Platelet Volume 6.0 FL (6.5-10.1) L Neutrophils (%) (Auto) 56.8 % (45.0-75.0) Lymphocytes (%) (Auto) 23.5 % (20.0-45.0) Monocytes (%) (Auto) 9.2 % (1.0-10.0) Eosinophils (%) (Auto) 6.1 % (0.0-3.0) H Basophils (%) (Auto) 4.5 % (0.0-2.0) H Sodium Level 139 MMOL/L (136-145) Potassium Level 5.2 MMOL/L (3.5-5.1) H Chloride Level 99 MMOL/L (98-107) Carbon Dioxide Level 32 MMOL/L (21-32) Anion Gap 8 mmol/L (5-15) Blood Urea Nitrogen 31 mg/dL (7-18) H Creatinine 5.3 MG/DL (0.55-1.30) H Estimat Glomerular Filtration Rate mL/min (>60) Glucose Level 84 MG/DL (74-106) Calcium Level 8.9 MG/DL (8.5-10.1) Phosphorus Level 4.7 MG/DL (2.5-4.9) Magnesium Level 2.3 MG/DL (1.8-2.4) Microbiology Date/Time Source Procedure Growth Status 11/22/18 22:05 Urine,Clean Catch Urine Culture - Preliminary Gram Negative Bacillus 1 Resulted 11/23/18 00:00 Rectum Received Kvng London MD Nov 25, 2018 06:34
--- NOTE | 2018-11-25 07:15 | NUR ---
NURSE NOTES: I received the patient awake and resting in bed. Patient alert and oriented x4. Bed in the lowest position and call light within reach. Patient does not display any signs of distress or SOB. I will continue to monitor the patient and implement care.
--- NOTE | 2018-11-25 07:22 | NUR ---
HAND-OFF: Report given to DENISSE Daniel.
--- NOTE | 2018-11-25 07:49 | NUR ---
NURSE NOTES: [facility] contacted about patient's dialysis order.
[2018-11-25 08:00] VITALS: BP_SYST 160; BP_SYST 60; BP_DIAS 54
--- NOTE | 2018-11-25 09:06 | NUR ---
[employer] SI:DYSLIPIDEMIA . CHF VS: BP 161/62, P 56, T 98.2, RR 20, SpO2 97 on 2.0L NC WBC 4.0, RBC 3.49, H&H 9.9/31.3, Plt. Count 137, K 5.2, BUN 31, CR 5.3 IS:LOPRESSOR 25mg ASPIRIN 81mg PEPCID 20mg NIFEDIPINE 120mg APRESOLINE 50mg DC Bi-pap HD 11/24 & 11/25 TELE STATUS
[2018-11-25] MEDS: Aspirin EC 81mg tab ORAL SCH (09:07)
[2018-11-25] MEDS: Metoprolol 25mg tab ORAL SCH ×2 (09:10→21:27)
--- NOTE | 2018-11-25 11:13 | NUR ---
*-* INSURANCE *-* ALL CLINICALS AND REVIEWS HAVE BEEN FAXED TO: JENNIFER MCKINNEY:KESHAV P:[phone] F:[phone]
[2018-11-25 11:51] VITALS: BP 179/61
--- NOTE | 2018-11-25 13:54 | Hematology/Onc Progress Note ---
Assessment/Plan Assessment/Plan ASSESSMENT AND RECOMMENDATIONS # Pancytopenia -- multiple etiologies could be related to underlying liver disease, medication-induced, infection versus viral syndrome --> peripheral smear has been ordered and does not show significant abnormalities --> Medications have been reviewed --> Continue to monitor for improvement, trend cbc --> Plt trend: 137--> --> Hep panel and HIV negative pending, --> US abd ordered to r/o cirrhosis and hepatosplenomegaly - pending --> reverse isolation if ANC is <2000 --> Give neupogen if ANC <1000 --> Transfuse if hgb <7, with 1 unit prbc --> consider bone marrow biopsy if no other causes are found # Anemia of chronic disease due to underlying chronic medical issues, multifactorial --> Anemia workup has been reviewed. Ferritin 1306 --> No evidence of hemolysis is noted, peripheral smear has been reviewed. --> Hgb goal >7. Transfuse prn. --> Epogen or iron at this time is not particularly indicated --> Medications have been reviewed --> low threshold for gi evaluation in case has occult + --> bone marrow biopsy is not indicated given the other more likely causes --> Hgb trend: 9.9--> # Hypertension. Cardiology is follwoing, appreciate recs. --> BP well controlled, continue minoxidil along with the other anti- hypertensive medications. # End-stage renal disease. Nephro is follwoing, appreciate recs. --> on hemodialysis 3 days a week. # History of diabetes mellitus --> continue aggressive control of sugars # Dyslipidemia with low HDL --> continue statins. # Fluids overload/edema - BiPAP --> HD per nephrology # SOB valentinley 2/2 Fluid overload 2/2 ESRD vs new onset CHF The time the note is entered does not reflect the time the patient was examined. I greatly appreciate the consultation. Subjective Hematologic/Lymphatic: Reports: anemia Allergies: Coded Allergies: PENICILLINS (Verified Allergy, Unknown, 03/23/18) Patient states feeling chills All Systems: reviewed and negative except above Subjective 11/25: Pt awake and alert, does not display any signs of distress or SOB. Objective Objective Current Medications Medications (Trade) Dose Ordered Sig/Oren Route PRN Reason Start Time Stop Time Status Last Admin Dose Admin Acetaminophen (Tylenol) 650 mg Q6H PRN ORAL Mild Pain/Temp > 100.5 11/25/18 06:53 12/23/18 06:52 11/25/18 10:03 Aspirin (Ecotrin) 81 mg DAILY ORAL 11/25/18 09:00 12/23/18 08:59 11/25/18 09:07 Atorvastatin Calcium (Lipitor) 40 mg BEDTIME ORAL 11/25/18 21:00 12/23/18 20:59 Famotidine (Pepcid) 20 mg BID ORAL 11/25/18 09:00 12/23/18 08:59 11/25/18 09:07 Gabapentin (Neurontin) 100 mg ONCE PRN ORAL prior to dialysis 11/25/18 09:30 11/25/18 23:59 Hydralazine HCl (Apresoline) 50 mg EVERY 8 HOURS ORAL 11/25/18 14:00 12/23/18 05:59 11/25/18 13:06 Metoprolol Tartrate (Lopressor) 25 mg BID@0900,2100 ORAL 11/25/18 09:00 12/25/18 08:59 11/25/18 09:10 Nifedipine (Procardia XL) 120 mg DAILY ORAL 11/25/18 09:00 12/23/18 08:59 11/25/18 10:04 Ondansetron HCl (Zofran ODT) 4 mg Q6H PRN ORAL Nausea & Vomiting 11/25/18 06:56 12/25/18 06:55 Last 24 Hour Vital Signs Date Time Temp Pulse Resp B/P (MAP) Pulse Ox O2 Delivery O2 Flow Rate FiO2 11/25/18 13:06 164/74 11/25/18 12:00 2.0 11/25/18 12:00 61 11/25/18 12:00 Nasal Cannula 2.0 11/25/18 11:51 98.2 65 20 179/61 (100) 65 11/25/18 10:33 98.2 11/25/18 10:04 66 148/60 11/25/18 09:10 67 160/54 11/25/18 09:00 Nasal Cannula 2.0 11/25/18 08:00 2.0 11/25/18 08:00 98.2 67 20 160/54 (89) 67 11/25/18 08:00 67 11/25/18 07:11 97 Nasal Cannula 2.0 28 11/25/18 07:10 71 18 97 Nasal Cannula 2.0 28 11/25/18 05:03 161/62 11/25/18 04:00 Nasal Cannula 2.0 11/25/18 04:00 2.0 11/25/18 04:00 56 11/25/18 04:00 98.1 58 20 158/60 (92) 100 11/25/18 00:00 Nasal Cannula 2.0 11/25/18 00:00 98.2 60 20 155/65 (95) 100 11/25/18 00:00 2.0 11/24/18 23:38 66 11/24/18 21:21 162/68 11/24/18 20:00 97.9 66 20 162/68 (99) 100 11/24/18 20:00 2.0 11/24/18 20:00 Nasal Cannula 2.0 11/24/18 19:10 98 Nasal Cannula 2.0 28 11/24/18 19:10 61 18 98 Nasal Cannula 2.0 28 11/24/18 19:04 67 11/24/18 18:15 64 162/67 11/24/18 16:00 85 11/24/18 16:00 2.0 11/24/18 16:00 97.9 64 20 162/67 (98) 100 11/24/18 16:00 Nasal Cannula 2.0 11/24/18 15:07 61 18 97 Nasal Cannula 2.0 28 11/24/18 15:07 97 Nasal Cannula 2.0 28 11/24/18 14:45 69 165/71 11/24/18 14:44 165/71 11/24/18 12:06 2.0 11/24/18 12:06 97.2 69 20 165/71 (102) 98 11/24/18 12:00 66 11/24/18 12:00 Nasal Cannula 2.0 11/24/18 09:00 65 164/68 11/24/18 08:19 65 11/24/18 08:00 Nasal Cannula 2.0 11/24/18 08:00 97.7 66 18 164/68 (100) 99 11/24/18 08:00 2.0 11/24/18 05:48 158/72 11/24/18 04:00 97.5 66 16 139/65 (89) 98 11/24/18 04:00 2.0 11/24/18 04:00 Nasal Cannula 2.0 11/24/18 04:00 64 11/24/18 00:00 Nasal Cannula 2.0 11/24/18 00:00 97.5 68 16 163/60 (94) 97 11/23/18 23:41 68 11/23/18 21:05 160/57 11/23/18 20:00 97.5 60 16 142/58 (86) 98 11/23/18 20:00 2.0 11/23/18 20:00 56 18 96 Nasal Cannula 2.0 28 11/23/18 20:00 Nasal Cannula 2.0 11/23/18 20:00 96 Nasal Cannula 2.0 28 11/23/18 19:27 65 11/23/18 17:02 67 162/70 11/23/18 16:00 Nasal Cannula 2.0 11/23/18 16:00 59 11/23/18 16:00 97.5 67 16 162/70 (100) 98 11/23/18 16:00 2.0 11/23/18 15:29 66 18 97 11/23/18 13:52 165/73 Intake and Output 11/24/18 11/25/18 19:00 07:00 Intake Total 3580 ml Output Total 1 ml Balance 3579 ml Intake Oral 580 ml Hemodialysis 3000 ml Output Urine Total 1 ml Labs Test 11/22/18 22:05 11/22/18 22:27 11/22/18 23:24 11/23/18 03:30 Urine Color Pale yellow Urine Appearance Slightly cloudy Urine pH 9 (4.5-8.0) Urine Specific [place] 1.020 (1.005-1.035) Urine Protein 4+ (NEGATIVE) Urine Glucose (UA) 2+ (NEGATIVE) Urine Ketones Negative (NEGATIVE) Urine Blood 3+ (NEGATIVE) Urine Nitrite Negative (NEGATIVE) Urine Bilirubin Negative (NEGATIVE) Urine Urobilinogen Normal MG/DL (0.0-1.0) Urine Leukocyte Esterase 2+ (NEGATIVE) Urine RBC 5-10 /HPF (0 - 2) Urine WBC 10-15 /HPF (0 - 2) Urine Squamous Epithelial Cells Few /LPF (NONE/OCC) Urine Bacteria Occasional /HPF (NONE) White Blood Count 10.0 K/UL (4.8-10.8) 6.5 K/UL (4.8-10.8) Red Blood Count 3.73 M/UL (4.20-5.40) 3.25 M/UL (4.20-5.40) Hemoglobin 10.5 G/DL (12.0-16.0) 9.4 G/DL (12.0-16.0) Hematocrit 31.7 % (37.0-47.0) 28.7 % (37.0-47.0) Mean Corpuscular Volume 85 FL (80-99) 88 FL (80-99) Mean Corpuscular Hemoglobin 28.2 PG (27.0-31.0) 29.0 PG (27.0-31.0) Mean Corpuscular Hemoglobin Concent 33.1 G/DL (32.0-36.0) 33.0 G/DL (32.0-36.0) Red Cell Distribution Width 13.2 % (11.6-14.8) 13.1 % (11.6-14.8) Platelet Count 162 K/UL (150-450) 138 K/UL (150-450) Mean Platelet Volume 6.0 FL (6.5-10.1) 6.7 FL (6.5-10.1) Neutrophils (%) (Auto) 82.8 % (45.0-75.0) 71.7 % (45.0-75.0) Lymphocytes (%) (Auto) 7.7 % (20.0-45.0) 16.8 % (20.0-45.0) Monocytes (%) (Auto) 5.1 % (1.0-10.0) 6.8 % (1.0-10.0) Eosinophils (%) (Auto) 3.1 % (0.0-3.0) 3.5 % (0.0-3.0) Basophils (%) (Auto) 1.3 % (0.0-2.0) 1.3 % (0.0-2.0) Troponin I 0.000 ng/mL (0.000-0.056) Sodium Level 140 MMOL/L (136-145) 140 MMOL/L (136-145) Potassium Level 6.8 MMOL/L (3.5-5.1) 5.1 MMOL/L (3.5-5.1) Chloride Level 100 MMOL/L (98-107) 101 MMOL/L (98-107) Carbon Dioxide Level 29 MMOL/L (21-32) 29 MMOL/L (21-32) Anion Gap 11 mmol/L (5-15) 10 mmol/L (5-15) Blood Urea Nitrogen 46 mg/dL (7-18) 46 mg/dL (7-18) Creatinine 7.2 MG/DL (0.55-1.30) 7.3 MG/DL (0.55-1.30) Estimat Glomerular Filtration Rate mL/min (>60) mL/min (>60) Glucose Level 154 MG/DL (74-106) 69 MG/DL (74-106) Calcium Level 10.0 MG/DL (8.5-10.1) 9.1 MG/DL (8.5-10.1) Total Bilirubin 0.6 MG/DL (0.2-1.0) Aspartate Amino Transf (AST/SGOT) 24 U/L (15-37) Alanine Aminotransferase (ALT/SGPT) 23 U/L (12-78) Alkaline Phosphatase 171 U/L (46-116) Total Creatine Kinase 60 U/L (26-308) Creatine Kinase MB 0.8 NG/ML (0.0-3.6) Creatine Kinase MB Relative Index 1.3 Pro-B-Type Natriuretic Peptide 85301 pg/mL (0-125) Total Protein 8.9 G/DL (6.4-8.2) Albumin 4.2 G/DL (3.4-5.0) Globulin 4.7 g/dL Albumin/Globulin Ratio 0.9 (1.0-2.7) Calcium (Send out) 9.2 mg/dL (8.7-10.3) Phosphorus Level 4.0 MG/DL (2.5-4.9) Magnesium Level 2.5 MG/DL (1.8-2.4) Iron Level 28 ug/dL (50-175) Total Iron Binding Capacity 193 ug/dL (250-450) Percent Iron Saturation 15 % (15-50) Unsaturated Iron Binding 165 ug/dL (112-346) PTH (Intact) Whole Molecule Comment (.) Parathyroid Hormone (Intact) 241 pg/mL (15-65) Test 11/23/18 06:45 11/24/18 04:19 11/24/18 21:23 11/25/18 04:30 Arterial Blood pH 7.433 (7.350-7.450) Arterial Blood Partial Pressure CO2 45.3 mmHg (35.0-45.0) Arterial Blood Partial Pressure O2 75.9 mmHg (75.0-100.0) Arterial Blood HCO3 29.6 mmol/L (22.0-26.0) Arterial Blood Oxygen Saturation 94.4 % (95-100) Arterial Blood Base Excess 4.7 (-2-2) Benito Test Positive White Blood Count 4.2 K/UL (4.8-10.8) 4.0 K/UL (4.8-10.8) Red Blood Count 3.49 M/UL (4.20-5.40) 3.49 M/UL (4.20-5.40) Hemoglobin 9.9 G/DL (12.0-16.0) 9.9 G/DL (12.0-16.0) Hematocrit 30.8 % (37.0-47.0) 31.3 % (37.0-47.0) Mean Corpuscular Volume 88 FL (80-99) 90 FL (80-99) Mean Corpuscular Hemoglobin 28.4 PG (27.0-31.0) 28.3 PG (27.0-31.0) Mean Corpuscular Hemoglobin Concent 32.1 G/DL (32.0-36.0) 31.6 G/DL (32.0-36.0) Red Cell Distribution Width 13.2 % (11.6-14.8) 13.4 % (11.6-14.8) Platelet Count 139 K/UL (150-450) 137 K/UL (150-450) Mean Platelet Volume 6.5 FL (6.5-10.1) 6.0 FL (6.5-10.1) Neutrophils (%) (Auto) 63.4 % (45.0-75.0) 56.8 % (45.0-75.0) Lymphocytes (%) (Auto) 22.4 % (20.0-45.0) 23.5 % (20.0-45.0) Monocytes (%) (Auto) 7.2 % (1.0-10.0) 9.2 % (1.0-10.0) Eosinophils (%) (Auto) 5.3 % (0.0-3.0) 6.1 % (0.0-3.0) Basophils (%) (Auto) 1.7 % (0.0-2.0) 4.5 % (0.0-2.0) Differential Total Cells Counted 100 Neutrophils % (Manual) 64 % (45-75) Lymphocytes % (Manual) 25 % (20-45) Monocytes % (Manual) 2 % (1-10) Eosinophils % (Manual) 2 % (0-3) Basophils % (Manual) 3 % (0-2) Band Neutrophils 4 % (0-8) Platelet Estimate Decreased Platelet Morphology Normal Red Blood Cell Morphology Normal Sodium Level 141 MMOL/L (136-145) 139 MMOL/L (136-145) Potassium Level 5.0 MMOL/L (3.5-5.1) 5.2 MMOL/L (3.5-5.1) Chloride Level 101 MMOL/L (98-107) 99 MMOL/L (98-107) Carbon Dioxide Level 31 MMOL/L (21-32) 32 MMOL/L (21-32) Anion Gap 9 mmol/L (5-15) 8 mmol/L (5-15) Blood Urea Nitrogen 32 mg/dL (7-18) 31 mg/dL (7-18) Creatinine 5.4 MG/DL (0.55-1.30) 5.3 MG/DL (0.55-1.30) Estimat Glomerular Filtration Rate mL/min (>60) mL/min (>60) Glucose Level 106 MG/DL (74-106) 84 MG/DL (74-106) Calcium Level 9.1 MG/DL (8.5-10.1) 8.9 MG/DL (8.5-10.1) Phosphorus Level 4.6 MG/DL (2.5-4.9) 4.7 MG/DL (2.5-4.9) Magnesium Level 2.3 MG/DL (1.8-2.4) 2.3 MG/DL (1.8-2.4) Reticulocyte Count 0.9 % (0.5-2.0) Prothrombin Time 10.1 SEC (9.30-11.50) Prothromb Time International Ratio 0.9 (0.9-1.1) Iron Level 51 ug/dL (50-175) Total Iron Binding Capacity 203 ug/dL (250-450) Percent Iron Saturation 25 % (15-50) Unsaturated Iron Binding 152 ug/dL (112-346) Ferritin 1306 NG/ML (8-388) Lactate Dehydrogenase 176 U/L (81-234) Vitamin B12 Level 1154 PG/ML (193-986) HIV (1&2) Antibody Rapid Negative (NEGATIVE) Height (Feet): 5 Height (Inches): 5.00 Weight (Pounds): 120 Objective Physical Exam General Appearance: lethargic, mild distress Lines, tubes and drains: peripheral HEENT: normocephalic, atraumatic, anicteric, mucous membranes moist, PERRL Neck: non-tender, normal alignment, supple, normal inspection Respiratory/Chest: respiratory distress, crackles/rales Cardiovascular/Chest: normal peripheral pulses, rrr Abdomen: normal bowel sounds, non tender, no orgm, no mass Extremities: normal range of motion, non-tender, normal inspection Skin Exam: normal pigmentation 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
--- NOTE | 2018-11-25 14:32 | NUR ---
NURSE NOTES: I contacted [facility] again about the patient's order for dialysis. Patient is resting in bed with family at the beside. She does not display any signs of distress or SOB. I will continue to monitor the patient and implement care.
--- NOTE | 2018-11-25 14:32 | Consultation ---
History of Present Illness General Date patient seen: Nov 25, 2018 Chief Complaint: AMS Referring physician: Dr. Devries Present Illness HPI Jordin Lee is a 73 yo F with PMH fo DM, HTN, ESRD on HD MWF presented with complaints of SOB on Friday. Per pt and son and bedside, pt had normal HD session of Friday, then on she suddenly developed SOB worsening on Friday, therefore was brought to ED. Pt states symptoms are worse when laying flat, also complains or worsening LE edema. Pt denies fevers, chills , n/v/c/d, urinary complaints or abdominal complaints Allergies: Coded Allergies: PENICILLINS (Verified Allergy, Unknown, 03/23/18) Patient states feeling chills Medication History Scheduled Aspirin* (Aspir 81*), 81 MG ORAL DAILY, (Reported) Atorvastatin Calcium* (Atorvastatin Calcium*), 40 MG ORAL BEDTIME, (Reported) Famotidine (Pepcid Ac), 20 MG PO BID, (Reported) Hydralazine Hcl* (Hydralazine Hcl*), 50 MG ORAL EVERY 8 HOURS, (Reported) Metoprolol Tartrate* (Metoprolol Tartrate*), 25 MG ORAL BID, (Reported) Nifedipine Er* (Nifedipine Er*), 60 MG ORAL DAILY, (Reported) Ranitidine Hcl* (Zantac*), 150 MG ORAL TWICE A DAY Scheduled PRN Ondansetron Odt* (Zofran Odt*), 4 MG BC EVERY 6 HOURS PRN for Nausea & Vomiting Patient History History Provided By: Medical Record Healthcare decision maker Sol Herron Resuscitation status Full Code Advanced Directive on File Past Medical/Surgical History Past Medical/Surgical History: (1) HTN (hypertension) (2) Diabetes (3) ESRD (end stage renal disease) on dialysis Review of Systems Constitutional: Denies: no symptoms, see HPI, chills, sweats, fever, malaise, weakness, other Eye: Denies: no symptoms, see HPI, eye pain, blurred vision, tearing, double vision, nose pain, nose congestion, acuity changes, discharge, other All Other Systems: negative except mentioned in HPI Physical Exam General Appearance: WD/WN Last 24 Hour Vital Signs Date Time Temp Pulse Resp B/P (MAP) Pulse Ox O2 Delivery O2 Flow Rate FiO2 11/25/18 13:06 164/74 11/25/18 12:00 2.0 11/25/18 12:00 61 11/25/18 12:00 Nasal Cannula 2.0 11/25/18 11:51 98.2 65 20 179/61 (100) 65 11/25/18 10:33 98.2 11/25/18 10:04 66 148/60 11/25/18 09:10 67 160/54 11/25/18 09:00 Nasal Cannula 2.0 11/25/18 08:00 2.0 11/25/18 08:00 98.2 67 20 160/54 (89) 67 11/25/18 08:00 67 11/25/18 07:11 97 Nasal Cannula 2.0 28 11/25/18 07:10 71 18 97 Nasal Cannula 2.0 28 11/25/18 05:03 161/62 11/25/18 04:00 Nasal Cannula 2.0 11/25/18 04:00 2.0 11/25/18 04:00 56 11/25/18 04:00 98.1 58 20 158/60 (92) 100 11/25/18 00:00 Nasal Cannula 2.0 11/25/18 00:00 98.2 60 20 155/65 (95) 100 11/25/18 00:00 2.0 11/24/18 23:38 66 11/24/18 21:21 162/68 11/24/18 20:00 97.9 66 20 162/68 (99) 100 11/24/18 20:00 2.0 11/24/18 20:00 Nasal Cannula 2.0 11/24/18 19:10 98 Nasal Cannula 2.0 28 11/24/18 19:10 61 18 98 Nasal Cannula 2.0 28 11/24/18 19:04 67 11/24/18 18:15 64 162/67 11/24/18 16:00 85 11/24/18 16:00 2.0 11/24/18 16:00 97.9 64 20 162/67 (98) 100 11/24/18 16:00 Nasal Cannula 2.0 11/24/18 15:07 61 18 97 Nasal Cannula 2.0 28 11/24/18 15:07 97 Nasal Cannula 2.0 28 11/24/18 14:45 69 165/71 11/24/18 14:44 165 Intake and Output 11/24/18 11/25/18 19:00 07:00 Intake Total 3580 ml Output Total 1 ml Balance 3579 ml Intake Oral 580 ml Hemodialysis 3000 ml Output Urine Total 1 ml Laboratory Tests Test 11/24/18 21:23 11/25/18 04:30 Reticulocyte Count 0.9 % (0.5-2.0) Prothrombin Time 10.1 SEC (9.30-11.50) Prothromb Time International Ratio 0.9 (0.9-1.1) Iron Level 51 ug/dL (50-175) Total Iron Binding Capacity 203 ug/dL (250-450) L Percent Iron Saturation 25 % (15-50) Unsaturated Iron Binding 152 ug/dL (112-346) Ferritin 1306 NG/ML (8-388) H Lactate Dehydrogenase 176 U/L (81-234) Vitamin B12 Level 1154 PG/ML (193-986) H Hepatitis A IgM Antibody Pending Hepatitis B Surface Antigen Pending Hepatitis B Core IgM Antibody Pending Hepatitis C Antibody Pending HIV (1&2) Antibody Rapid Negative (NEGATIVE) White Blood Count 4.0 K/UL (4.8-10.8) L Red Blood Count 3.49 M/UL (4.20-5.40) L Hemoglobin 9.9 G/DL (12.0-16.0) L Hematocrit 31.3 % (37.0-47.0) L Mean Corpuscular Volume 90 FL (80-99) Mean Corpuscular Hemoglobin 28.3 PG (27.0-31.0) Mean Corpuscular Hemoglobin Concent 31.6 G/DL (32.0-36.0) L Red Cell Distribution Width 13.4 % (11.6-14.8) Platelet Count 137 K/UL (150-450) L Mean Platelet Volume 6.0 FL (6.5-10.1) L Neutrophils (%) (Auto) 56.8 % (45.0-75.0) Lymphocytes (%) (Auto) 23.5 % (20.0-45.0) Monocytes (%) (Auto) 9.2 % (1.0-10.0) Eosinophils (%) (Auto) 6.1 % (0.0-3.0) H Basophils (%) (Auto) 4.5 % (0.0-2.0) H Sodium Level 139 MMOL/L (136-145) Potassium Level 5.2 MMOL/L (3.5-5.1) H Chloride Level 99 MMOL/L (98-107) Carbon Dioxide Level 32 MMOL/L (21-32) Anion Gap 8 mmol/L (5-15) Blood Urea Nitrogen 31 mg/dL (7-18) H Creatinine 5.3 MG/DL (0.55-1.30) H Estimat Glomerular Filtration Rate mL/min (>60) Glucose Level 84 MG/DL (74-106) Calcium Level 8.9 MG/DL (8.5-10.1) Phosphorus Level 4.7 MG/DL (2.5-4.9) Magnesium Level 2.3 MG/DL (1.8-2.4) Height (Feet): 5 Height (Inches): 5.00 Weight (Pounds): 120 Medications Current Medications Medications (Trade) Dose Ordered Sig/Oren Route PRN Reason Start Time Stop Time Status Last Admin Dose Admin Acetaminophen (Tylenol) 650 mg Q6H PRN ORAL Mild Pain/Temp > 100.5 11/25/18 06:53 12/23/18 06:52 11/25/18 10:03 Aspirin (Ecotrin) 81 mg DAILY ORAL 11/25/18 09:00 12/23/18 08:59 11/25/18 09:07 Atorvastatin Calcium (Lipitor) 40 mg BEDTIME ORAL 11/25/18 21:00 12/23/18 20:59 Famotidine (Pepcid) 20 mg BID ORAL 11/25/18 09:00 12/23/18 08:59 11/25/18 09:07 Gabapentin (Neurontin) 100 mg ONCE PRN ORAL prior to dialysis 11/25/18 09:30 11/25/18 23:59 Hydralazine HCl (Apresoline) 50 mg EVERY 8 HOURS ORAL 11/25/18 14:00 12/23/18 05:59 11/25/18 13:06 Metoprolol Tartrate (Lopressor) 25 mg BID@0900,2100 ORAL 11/25/18 09:00 12/25/18 08:59 11/25/18 09:10 Nifedipine (Procardia XL) 120 mg DAILY ORAL 11/25/18 09:00 12/23/18 08:59 11/25/18 10:04 Ondansetron HCl (Zofran ODT) 4 mg Q6H PRN ORAL Nausea & Vomiting 11/25/18 06:56 12/25/18 06:55 Assessment/Plan Problem List: (1) Respiratory failure with hypoxia ICD Codes: J96.91 - Respiratory failure, unspecified with hypoxia SNOMED: 30793405044254753 Qualifiers: Qualified Codes: J96.01 - Acute respiratory failure with hypoxia (2) Hyperkalemia ICD Codes: E87.5 - Hyperkalemia SNOMED: 85210770 (3) Pulmonary edema ICD Codes: J81.1 - Chronic pulmonary edema SNOMED: 04987301 Qualifiers: Qualified Codes: J81.0 - Acute pulmonary edema (4) Gastroenteritis ICD Codes: K52.9 - Noninfective gastroenteritis and colitis, unspecified SNOMED: 46150571 (5) ESRD (end stage renal disease) on dialysis ICD Codes: N18.6 - End stage renal disease; Z99.2 - Dependence on renal dialysis SNOMED: 277786728 (6) Hypertensive CHF ICD Codes: I11.0 - Hypertensive heart disease with heart failure SNOMED: 2351644 Qualifiers: Qualified Codes: I11.0 - Hypertensive heart disease with heart failure (7) Diabetes ICD Codes: E11.9 - Type 2 diabetes mellitus without complications SNOMED: 55737231 (8) HTN (hypertension) ICD Codes: I10 - Essential (primary) hypertension SNOMED: 31063387 Brittni Conn N.P. Nov 25, 2018 14:32
[2018-11-25 15:59] VITALS: BP 103/58
--- NOTE | 2018-11-25 19:43 | NUR ---
HAND-OFF: Report given to DENISSE Kirk.
--- NOTE | 2018-11-25 19:54 | NUR ---
NURSE NOTES: Received pt and report from DENISSE Daniel. Observed pt resting in bed and watching television with family members at bedside. distribution superintendent is in placed, IV site intact, asymptomatic, and patent. Bed is in the lowest position and locked. Call light within reach. No signs/symptoms of acute distress noted at this time. Will continue plan of care.
[2018-11-25 20:00] VITALS: BP 128/61
[2018-11-25] MEDS ORDERED: Atorvastatin 20mg tab ORAL SCH (21:00)
--- NOTE | 2018-11-25 21:09 | General Progress Note ---
Assessment/Plan Status: stable Assessment/Plan: 73 year old female with PMH of DM, ESRD on HD, HTN admitted for SOB likley 2/2 fluid overload 2/2 ESRD vs new onset CHF. 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 Pt has no complaints. Plan for DC in AM Objective Last 24 Hour Vital Signs Date Time Temp Pulse Resp B/P (MAP) Pulse Ox O2 Delivery O2 Flow Rate FiO2 11/25/18 20:00 2.0 11/25/18 16:00 2.0 11/25/18 16:00 Nasal Cannula 2.0 11/25/18 16:00 64 11/25/18 15:59 98.3 70 18 103/58 (73) 100 11/25/18 13:06 164/74 11/25/18 12:00 2.0 11/25/18 12:00 61 11/25/18 12:00 Nasal Cannula 2.0 11/25/18 11:51 98.2 65 20 179/61 (100) 65 11/25/18 10:33 98.2 11/25/18 10:04 66 148/60 11/25/18 09:10 67 160/54 11/25/18 09:00 Nasal Cannula 2.0 11/25/18 08:00 2.0 11/25/18 08:00 98.2 67 20 160/54 (89) 67 11/25/18 08:00 67 11/25/18 07:11 97 Nasal Cannula 2.0 28 11/25/18 07:10 71 18 97 Nasal Cannula 2.0 28 11/25/18 05:03 161/62 11/25/18 04:00 Nasal Cannula 2.0 11/25/18 04:00 2.0 11/25/18 04:00 56 11/25/18 04:00 98.1 58 20 158/60 (92) 100 11/25/18 00:00 Nasal Cannula 2.0 11/25/18 00:00 98.2 60 20 155/65 (95) 100 11/25/18 00:00 2.0 11/24/18 23:38 66 11/24/18 21:21 162/68 Intake and Output 11/24/18 11/25/18 19:00 07:00 Intake Total 3580 ml Output Total 1 ml Balance 3579 ml Intake Oral 580 ml Hemodialysis 3000 ml Output Urine Total 1 ml Laboratory Tests 11/24/18 21:23: Reticulocyte Count 0.9, Prothrombin Time 10.1, Prothromb Time International Ratio 0.9, Iron Level 51, Total Iron Binding Capacity 203L, Percent Iron Saturation 25, Unsaturated Iron Binding 152, Ferritin 1306H, Lactate Dehydrogenase 176, Vitamin B12 Level 1154H, Hepatitis A IgM Antibody [Pending], Hepatitis B Surface Antigen [Pending], Hepatitis B Core IgM Antibody [Pending], Hepatitis C Antibody [Pending], HIV (1&2) Antibody Rapid Negative 11/25/18 04:30: White Blood Count 4.0L, Red Blood Count 3.49L, Hemoglobin 9.9L, Hematocrit 31.3L , Mean Corpuscular Volume 90, Mean Corpuscular Hemoglobin 28.3, Mean Corpuscular Hemoglobin Concent 31.6L, Red Cell Distribution Width 13.4, Platelet Count 137L, Mean Platelet Volume 6.0L, Neutrophils (%) (Auto) 56.8, Lymphocytes (%) (Auto) 23.5, Monocytes (%) (Auto) 9.2, Eosinophils (%) (Auto) 6.1H, Basophils (%) (Auto) 4.5H, Sodium Level 139, Potassium Level 5.2H, Chloride Level 99, Carbon Dioxide Level 32, Anion Gap 8, Blood Urea Nitrogen 31H , Creatinine 5.3H, Estimat Glomerular Filtration Rate , Glucose Level 84, Calcium Level 8.9, Phosphorus Level 4.7, Magnesium Level 2.3 Height (Feet): 5 Height (Inches): 5.00 Weight (Pounds): 120 Objective General Appearance: WD/WN, no apparent distress Lines, tubes and drains: peripheral HEENT: normocephalic, atraumatic Neck: non-tender, normal alignment Respiratory/Chest: chest wall non-tender, lungs clear, normal breath sounds Cardiovascular/Chest: normal peripheral pulses, normal rate, regular rhythm Abdomen: normal bowel sounds Extremities: normal range of motion, AV fistula on R arm Skin Exam: normal pigmentation Neurologic: 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
[2018-11-26] VITALS: BP 142/53
[2018-11-26 04:00] VITALS: BP 145/56
[2018-11-26] MEDS: HydrALAZINE 50mg tab ORAL SCH (05:43)
[2018-11-26 07:07] LABS: BASOPHILS % (AUTO) 1.8 % (0.0-2.0); EOSINOPHILS % (AUTO) 8.2 % (0.0-3.0); HEMATOCRIT 31.9 % (37.0-47.0); HEMOGLOBIN 10.4 G/DL (12.0-16.0); LYMPHOCYTES % (AUTO) 21.4 % (20.0-45.0); MEAN CORPUSCULAR VOLUME 87 FL (80-99); NEUTROPHILS % (AUTO) 59.6 % (45.0-75.0); PLATELET COUNT 157 K/UL (150-450); RED BLOOD COUNT 3.67 M/UL (4.20-5.40); RED CELL DISTRIBUTION WIDTH 12.8 % (11.6-14.8); WHITE BLOOD COUNT 4.2 K/UL (4.8-10.8)
[2018-11-26 07:14] LABS: ANION GAP 11 mmol/L (5-15); BLOOD UREA NITROGEN 25 mg/dL (7-18); CALCIUM 9.1 MG/DL (8.5-10.1); CARBON DIOXIDE 28 MMOL/L (21-32); CHLORIDE 98 MMOL/L (98-107); CREATININE 4.6 MG/DL (0.55-1.30); PHOSPHORUS 5.1 MG/DL (2.5-4.9); POTASSIUM 3.5 MMOL/L (3.5-5.1); SODIUM 137 MMOL/L (136-145)
--- NOTE | 2018-11-26 07:32 | NUR ---
HAND-OFF: Report given to DENISSE Gracia.
--- NOTE | 2018-11-26 07:38 | NUR ---
NURSE NOTES: Received report from DENISSE Kirk. Pt is resting in bed. No distress noted. bed is in lowest position, side rails up X2, and call light is within reach. Will continue to monitor.
[2018-11-26 08:00] VITALS: BP 154/59
--- NOTE | 2018-11-26 08:23 | Hematology/Onc Progress Note ---
Assessment/Plan Assessment/Plan ASSESSMENT AND RECOMMENDATIONS # Pancytopenia -- multiple etiologies could be related to underlying liver disease, medication-induced, infection versus viral syndrome --> peripheral smear has been ordered and does not show significant abnormalities --> Medications have been reviewed --> Continue to monitor for improvement, trend cbc --> Plt trend: 137--> 152 --> Hep panel and HIV are both negative --> US abd ordered to r/o cirrhosis and hepatosplenomegaly - pending --> reverse isolation if ANC is <2000 --> Give neupogen if ANC <1000 --> Transfuse if hgb <7, with 1 unit prbc --> consider bone marrow biopsy if no other causes are found # Anemia of chronic disease due to underlying chronic medical issues, multifactorial --> Anemia workup has been reviewed. Ferritin 1306 --> No evidence of hemolysis is noted, peripheral smear has been reviewed. --> Hgb goal >7. Transfuse prn. --> Epogen or iron at this time is not particularly indicated --> Medications have been reviewed --> low threshold for gi evaluation in case has occult + --> bone marrow biopsy is not indicated given the other more likely causes --> Hgb trend: 9.9--> 10.4 # Hypertension. Cardiology is follwoing, appreciate recs. --> BP well controlled, continue minoxidil along with the other anti- hypertensive medications. # End-stage renal disease. Nephro is follwoing, appreciate recs. --> on hemodialysis 3 days a week. # History of diabetes mellitus --> continue aggressive control of sugars # Dyslipidemia with low HDL --> continue statins. # Fluids overload/edema - BiPAP --> HD per nephrology # SOB likley 2/2 Fluid overload 2/2 ESRD vs new onset CHF The time the note is entered does not reflect the time the patient was examined. I greatly appreciate the consultation. Subjective Hematologic/Lymphatic: Reports: anemia Allergies: Coded Allergies: PENICILLINS (Verified Allergy, Unknown, 03/23/18) Patient states feeling chills Subjective 11/25: Pt awake and alert, does not display any signs of distress or SOB. 11/26: Pt resting in bed. No acute events. Hgb stable. Objective Objective Current Medications Medications (Trade) Dose Ordered Sig/Oren Route PRN Reason Start Time Stop Time Status Last Admin Dose Admin Acetaminophen (Tylenol) 650 mg Q6H PRN ORAL Mild Pain/Temp > 100.5 11/25/18 06:53 12/23/18 06:52 11/25/18 10:03 Aspirin (Ecotrin) 81 mg DAILY ORAL 11/25/18 09:00 12/23/18 08:59 11/25/18 09:07 Atorvastatin Calcium (Lipitor) 40 mg BEDTIME ORAL 11/25/18 21:00 12/23/18 20:59 11/25/18 21:26 Famotidine (Pepcid) 20 mg BID ORAL 11/25/18 09:00 12/23/18 08:59 11/25/18 17:54 Hydralazine HCl (Apresoline) 50 mg EVERY 8 HOURS ORAL 11/25/18 14:00 12/23/18 05:59 11/26/18 05:43 Metoprolol Tartrate (Lopressor) 25 mg BID@0900,2100 ORAL 11/25/18 09:00 12/25/18 08:59 11/25/18 21:27 Nifedipine (Procardia XL) 120 mg DAILY ORAL 11/25/18 09:00 12/23/18 08:59 11/25/18 10:04 Ondansetron HCl (Zofran ODT) 4 mg Q6H PRN ORAL Nausea & Vomiting 11/25/18 06:56 12/25/18 06:55 Last 24 Hour Vital Signs Date Time Temp Pulse Resp B/P (MAP) Pulse Ox O2 Delivery O2 Flow Rate FiO2 11/26/18 08:00 97.2 73 21 154/59 (90) 96 11/26/18 05:43 150/55 11/26/18 04:00 2.0 11/26/18 04:00 97.9 63 20 145/56 (85) 95 11/26/18 04:00 65 11/26/18 00:00 62 11/26/18 00:00 98.0 62 18 142/53 (82) 96 11/26/18 00:00 2.0 11/25/18 21:54 97 Room Air 21 11/25/18 21:53 63 20 97 Room Air 21 11/25/18 21:27 70 128/61 11/25/18 21:27 128/61 11/25/18 21:00 Room Air 11/25/18 20:00 2.0 11/25/18 20:00 98.2 70 18 128/61 (83) 96 11/25/18 20:00 69 11/25/18 16:00 2.0 11/25/18 16:00 Nasal Cannula 2.0 11/25/18 16:00 64 11/25/18 15:59 98.3 70 18 103/58 (73) 100 11/25/18 13:06 164/74 11/25/18 12:00 2.0 11/25/18 12:00 61 11/25/18 12:00 Nasal Cannula 2.0 11/25/18 11:51 98.2 65 20 179/61 (100) 65 11/25/18 10:33 98.2 11/25/18 10:04 66 148/60 11/25/18 09:10 67 160/54 11/25/18 09:00 Nasal Cannula 2.0 11/25/18 08:00 2.0 11/25/18 08:00 98.2 67 20 160/54 (89) 67 11/25/18 08:00 67 11/25/18 07:11 97 Nasal Cannula 2.0 28 11/25/18 07:10 71 18 97 Nasal Cannula 2.0 11/25/18 05:03 161/62 11/25/18 04:00 Nasal Cannula 2.0 11/25/18 04:00 2.0 11/25/18 04:00 56 11/25/18 04:00 98.1 58 20 158/60 (92) 100 11/25/18 00:00 Nasal Cannula 2.0 11/25/18 00:00 98.2 60 20 155/65 (95) 100 11/25/18 00:00 2.0 11/24/18 23:38 66 11/24/18 21:21 162/68 11/24/18 20:00 97.9 66 20 162/68 (99) 100 11/24/18 20:00 2.0 11/24/18 20:00 Nasal Cannula 2.0 11/24/18 19:10 98 Nasal Cannula 2.0 28 11/24/18 19:10 61 18 98 Nasal Cannula 2.0 28 11/24/18 19:04 67 11/24/18 18:15 64 162/67 11/24/18 16:00 85 11/24/18 16:00 2.0 11/24/18 16:00 97.9 64 20 162/67 (98) 100 11/24/18 16:00 Nasal Cannula 2.0 11/24/18 15:07 61 18 97 Nasal Cannula 2.0 28 11/24/18 15:07 97 Nasal Cannula 2.0 28 11/24/18 14:45 69 165/71 11/24/18 14:44 165/71 11/24/18 12:06 2.0 11/24/18 12:06 97.2 69 20 165/71 (102) 98 11/24/18 12:00 66 11/24/18 12:00 Nasal Cannula 2.0 11/24/18 09:00 65 164/68 Intake and Output 11/25/18 11/26/18 18:59 06:59 Intake Total 240 ml 300 ml Balance 240 ml 300 ml Intake Oral 240 ml 300 ml # Voids 1 # Bowel Movements 1 1 Labs Test 11/24/18 04:19 11/24/18 21:23 11/25/18 04:30 11/26/18 05:35 White Blood Count 4.2 K/UL (4.8-10.8) 4.0 K/UL (4.8-10.8) 4.2 K/UL (4.8-10.8) Red Blood Count 3.49 M/UL (4.20-5.40) 3.49 M/UL (4.20-5.40) 3.67 M/UL (4.20-5.40) Hemoglobin 9.9 G/DL (12.0-16.0) 9.9 G/DL (12.0-16.0) 10.4 G/DL (12.0-16.0) Hematocrit 30.8 % (37.0-47.0) 31.3 % (37.0-47.0) 31.9 % (37.0-47.0) Mean Corpuscular Volume 88 FL (80-99) 90 FL (80-99) 87 FL (80-99) Mean Corpuscular Hemoglobin 28.4 PG (27.0-31.0) 28.3 PG (27.0-31.0) 28.3 PG (27.0-31.0) Mean Corpuscular Hemoglobin Concent 32.1 G/DL (32.0-36.0) 31.6 G/DL (32.0-36.0) 32.5 G/DL (32.0-36.0) Red Cell Distribution Width 13.2 % (11.6-14.8) 13.4 % (11.6-14.8) 12.8 % (11.6-14.8) Platelet Count 139 K/UL (150-450) 137 K/UL (150-450) 157 K/UL (150-450) Mean Platelet Volume 6.5 FL (6.5-10.1) 6.0 FL (6.5-10.1) 6.8 FL (6.5-10.1) Neutrophils (%) (Auto) 63.4 % (45.0-75.0) 56.8 % (45.0-75.0) 59.6 % (45.0-75.0) Lymphocytes (%) (Auto) 22.4 % (20.0-45.0) 23.5 % (20.0-45.0) 21.4 % (20.0-45.0) Monocytes (%) (Auto) 7.2 % (1.0-10.0) 9.2 % (1.0-10.0) 9.0 % (1.0-10.0) Eosinophils (%) (Auto) 5.3 % (0.0-3.0) 6.1 % (0.0-3.0) 8.2 % (0.0-3.0) Basophils (%) (Auto) 1.7 % (0.0-2.0) 4.5 % (0.0-2.0) 1.8 % (0.0-2.0) Differential Total Cells Counted 100 Neutrophils % (Manual) 64 % (45-75) Lymphocytes % (Manual) 25 % (20-45) Monocytes % (Manual) 2 % (1-10) Eosinophils % (Manual) 2 % (0-3) Basophils % (Manual) 3 % (0-2) Band Neutrophils 4 % (0-8) Platelet Estimate Decreased Platelet Morphology Normal Red Blood Cell Morphology Normal Sodium Level 141 MMOL/L (136-145) 139 MMOL/L (136-145) 137 MMOL/L (136-145) Potassium Level 5.0 MMOL/L (3.5-5.1) 5.2 MMOL/L (3.5-5.1) 3.5 MMOL/L (3.5-5.1) Chloride Level 101 MMOL/L (98-107) 99 MMOL/L (98-107) 98 MMOL/L (98-107) Carbon Dioxide Level 31 MMOL/L (21-32) 32 MMOL/L (21-32) 28 MMOL/L (21-32) Anion Gap 9 mmol/L (5-15) 8 mmol/L (5-15) 11 mmol/L (5-15) Blood Urea Nitrogen 32 mg/dL (7-18) 31 mg/dL (7-18) 25 mg/dL (7-18) Creatinine 5.4 MG/DL (0.55-1.30) 5.3 MG/DL (0.55-1.30) 4.6 MG/DL (0.55-1.30) Estimat Glomerular Filtration Rate mL/min (>60) mL/min (>60) mL/min (>60) Glucose Level 106 MG/DL (74-106) 84 MG/DL (74-106) 106 MG/DL (74-106) Calcium Level 9.1 MG/DL (8.5-10.1) 8.9 MG/DL (8.5-10.1) 9.1 MG/DL (8.5-10.1) Phosphorus Level 4.6 MG/DL (2.5-4.9) 4.7 MG/DL (2.5-4.9) 5.1 MG/DL (2.5-4.9) Magnesium Level 2.3 MG/DL (1.8-2.4) 2.3 MG/DL (1.8-2.4) 2.2 MG/DL (1.8-2.4) Reticulocyte Count 0.9 % (0.5-2.0) Prothrombin Time 10.1 SEC (9.30-11.50) Prothromb Time International Ratio 0.9 (0.9-1.1) Iron Level 51 ug/dL (50-175) Total Iron Binding Capacity 203 ug/dL (250-450) Percent Iron Saturation 25 % (15-50) Unsaturated Iron Binding 152 ug/dL (112-346) Ferritin 1306 NG/ML (8-388) Lactate Dehydrogenase 176 U/L (81-234) Vitamin B12 Level 1154 PG/ML (193-986) Hepatitis A IgM Antibody Negative (Negative) Hepatitis B Surface Antigen Negative (Negative) Hepatitis B Core IgM Antibody Negative (Negative) Hepatitis C Antibody 0.1 s/co ratio (0.0-0.9) HIV (1&2) Antibody Rapid Negative (NEGATIVE) Height (Feet): 5 Height (Inches): 5.00 Weight (Pounds): 111 Objective Physical Exam General Appearance: lethargic, mild distress Lines, tubes and drains: peripheral HEENT: normocephalic, atraumatic, anicteric, mucous membranes moist, PERRL Neck: non-tender, normal alignment, supple, normal inspection Respiratory/Chest: respiratory distress, crackles/rales Cardiovascular/Chest: normal peripheral pulses, rrr Abdomen: normal bowel sounds, non tender, no orgm, no mass Extremities: normal range of motion, non-tender, normal inspection Skin Exam: normal pigmentation 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
[2018-11-26] MEDS: Aspirin EC 81mg tab ORAL SCH (08:29)
[2018-11-26 08:31] VITALS: BP 154/59
[2018-11-26] MEDS: Metoprolol 25mg tab ORAL SCH (08:31)
--- NOTE | 2018-11-26 10:26 | Cardiology Progress Note ---
Assessment/Plan Status: stable Assessment/Plan Assessment/Plan Assessment/Plan 1. Hypertension: Continue metoprolol, hydralazine, nifedipine, adjust doses as needed Echo showed normal LVEF at 60% with normal PAP in 2018. Repeat Echo on this admission with PAP 50 mmHg and pleural effusion, mild valve regurgitation, normal LV function 2. End-stage renal disease, on hemodialysis 3 days a week. CXR with fluid overload BNP elevated -Continue Bipap prn, currently satting normal on room air -Continue HD per nephrology 3. History of diabetes mellitus, continue aggressive control of sugars 4. Dyslipidemia with low HDL, continue statins. 5. Chest pain - nuclear stress test when stable as outpatient Subjective Cardiovascular: Reports: no symptoms Respiratory: Reports: no symptoms Gastrointestinal/Abdominal: Reports: no symptoms Genitourinary: Reports: no symptoms Subjective No acute events, BP elevated, no distress, no SOB. Objective Last 24 Hour Vital Signs Date Time Temp Pulse Resp B/P (MAP) Pulse Ox O2 Delivery O2 Flow Rate FiO2 11/26/18 09:00 Room Air 11/26/18 08:31 73 154/59 11/26/18 08:31 73 154/59 11/26/18 08:00 97.2 73 21 154/59 (90) 96 11/26/18 08:00 2.0 11/26/18 08:00 71 11/26/18 05:43 150/55 11/26/18 04:00 2.0 11/26/18 04:00 97.9 63 20 145/56 (85) 95 11/26/18 04:00 65 11/26/18 00:00 62 11/26/18 00:00 98.0 62 18 142/53 (82) 96 11/26/18 00:00 2.0 11/25/18 21:54 97 Room Air 21 11/25/18 21:53 63 20 97 Room Air 21 11/25/18 21:27 70 128/61 11/25/18 21:27 128/61 11/25/18 21:00 Room Air 11/25/18 20:00 2.0 11/25/18 20:00 98.2 70 18 128/61 (83) 96 11/25/18 20:00 69 11/25/18 16:00 2.0 11/25/18 16:00 Nasal Cannula 2.0 11/25/18 16:00 64 11/25/18 15:59 98.3 70 18 103/58 (73) 100 11/25/18 13:06 164/74 11/25/18 12:00 2.0 11/25/18 12:00 61 11/25/18 12:00 Nasal Cannula 2.0 11/25/18 11:51 98.2 65 20 179/61 (100) 65 11/25/18 10:33 98.2 General Appearance: no apparent distress, alert EENT: PERRL/EOMI, normal ENT inspection, TMs normal, pharynx normal Neck: non-tender, normal alignment, supple, normal inspection, no JVD Rhythm: NSR Cardiovascular: normal peripheral pulses, normal rate, regular rhythm Respiratory/Chest: chest wall non-tender, lungs clear Abdomen: normal bowel sounds, non tender, soft, no organomegaly Extremities: normal range of motion, non-tender, normal inspection, no calf tenderness, no swelling 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: billing associate II-XII grossly normal, no motor/sensory deficits Intake and Output 11/25/18 11/26/18 18:59 06:59 Intake Total 240 ml 300 ml Balance 240 ml 300 ml Intake Oral 240 ml 300 ml # Voids 1 # Bowel Movements 1 1 Laboratory Tests Test 11/26/18 05:35 White Blood Count 4.2 K/UL (4.8-10.8) L Red Blood Count 3.67 M/UL (4.20-5.40) L Hemoglobin 10.4 G/DL (12.0-16.0) L Hematocrit 31.9 % (37.0-47.0) L Mean Corpuscular Volume 87 FL (80-99) Mean Corpuscular Hemoglobin 28.3 PG (27.0-31.0) Mean Corpuscular Hemoglobin Concent 32.5 G/DL (32.0-36.0) Red Cell Distribution Width 12.8 % (11.6-14.8) Platelet Count 157 K/UL (150-450) Mean Platelet Volume 6.8 FL (6.5-10.1) Neutrophils (%) (Auto) 59.6 % (45.0-75.0) Lymphocytes (%) (Auto) 21.4 % (20.0-45.0) Monocytes (%) (Auto) 9.0 % (1.0-10.0) Eosinophils (%) (Auto) 8.2 % (0.0-3.0) H Basophils (%) (Auto) 1.8 % (0.0-2.0) Sodium Level 137 MMOL/L (136-145) Potassium Level 3.5 MMOL/L (3.5-5.1) Chloride Level 98 MMOL/L (98-107) Carbon Dioxide Level 28 MMOL/L (21-32) Anion Gap 11 mmol/L (5-15) Blood Urea Nitrogen 25 mg/dL (7-18) H Creatinine 4.6 MG/DL (0.55-1.30) H Estimat Glomerular Filtration Rate mL/min (>60) Glucose Level 106 MG/DL (74-106) Calcium Level 9.1 MG/DL (8.5-10.1) Phosphorus Level 5.1 MG/DL (2.5-4.9) H Magnesium Level 2.2 MG/DL (1.8-2.4) Kvng London MD Nov 26, 2018 10:26
--- NOTE | 2018-11-26 10:52 | Discharge Instructions ---
Discharge Instructions Discharge Instructions Follow up with: pcp Services at Discharge: physical therapy Diet: 2 GM sodium (low sodium) Resume Normal Activity?: Yes Activity: as tolerated For Congestive Heart Failure Reminder Report to your physician any weight gain of 5 pounds or more in one week. Cyndi Santos MD Nov 26, 2018 10:52
--- NOTE | 2018-11-26 10:53 | Discharge Summary ---
Discharge Summary Hospital Course Date of Admission Nov 22, 2018 at 23:15 Date of Discharge Admitting Diagnosis Congestive heart failure exacerabtion HPI Jordin Lee is a 73 year old female who was admitted on Nov 22, 2018 at 23:15 for fluid overload 2/2 ESRD 73 yo F with PMH fo DM, HTN, ESRD on HD MWF presented with complaints of SOB on Friday. Per pt and son and bedside, pt had normal HD session of Friday, then on she suddenly developed SOB worsening on Friday, therefore was brought to ED. Pt states symptoms are worse when laying flat, also complains or worsening LE edema. Pt denies fevers, chills, n/v/c/d, urinary complaints or abdominal complaints Hospital Course 73 year old female with PMH of DM, ESRD on HD, HTN admitted for SOB likley 2/2 fluid overload 2/2 ESRD vs new onset CHF. 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
--- NOTE | 2018-11-26 11:41 | NUR ---
P.T Note: P.T evaluation completed and tx initiated. Please refer to P.T evaluation for current functional status. Pt is alert, O x 4 , pleasant and cooperative. Pt denied c/o pain but c/o being generally weak and fatigue affecting overall functional mobility performance and safety. Pt currently independent with bed mobilities, SBA/supervision with transfers and SBA/hand in hand A for ambulation activities. Skilled P.T service is warranted to increase her strength and endurance to increase her mobility independence and safety. Recommend home P.T at [place]. DME's to include [facility].
--- NOTE | 2018-11-26 11:43 | NUR ---
*-* INSURANCE *-* UPDATED CLINICALS HAVE BEEN FAXED TO: JENNIFER MCKINNEY:KESHAV P:[phone] F:[phone]
--- NOTE | 2018-11-26 12:38 | Diagnostic Imaging Report ---
APPROVED REPORT CPT Code: 48157 Present Symptoms Lower Extremity Pain: Bilateral BILATERAL: Imaging reveals a patent deep venous system bilaterally. There is no evidence of thrombus within the common femoral, superficial femoral, popliteal or tibial segments. The greater saphenous veins are within normal limits. Doppler indicates normal spontaneous flow within these segments.
--- NOTE | 2018-11-26 13:01 | NUR ---
NURSE NOTES: Pt was discharged per MD orders. Pt was given a walker as PT recommended. Heart monitor was removed and returned to technical business analyst. Belongings accounted for. IV removed. No swelling or redness noted. Pt stable at time of dc
--- NOTE | 2018-11-27 16:08 | Cardiology Report ---
APPROVED REPORT EKG Measurement Heart [id number] Normal sinus rhythm Normal ECG
--- NOTE | 2018-11-30 08:49 | Cardiology Report ---
APPROVED REPORT EXAM: Two-dimensional and M-mode echocardiogram with Doppler and color Doppler. INDICATION Congestive Heart Failure M-Mode DIMENSIONS IVSd1.0 (0.7-1.1cm)Left Atrium (MM)3.8 (1.6-4.0cm) LVDd4.4 (3.5-5.6cm)Aortic Root2.6 (2.0-3.7cm) PWd1.0 (0.7-1.1cm)Aortic Cusp Exc.1.5 (1.5-2.0cm) IVSs1.5 cm LVDs3.0 (2.5-4.0cm) PWs1.3 cm Normal left ventricular chamber size, systolic function and wall motion. Left ventricular ejection fraction estimated to be 60-65%. Mild left ventricular hypertrophy by 2-D. No evidence of pericardial effusion. Large pleural effusion present . All other cardiac chamber sizes are within normal limits. Aortic valve calcification with normal cusp excursion . Mildly thickened mitral valve leaflets with normal excursion. Mild mitral annulus and aortic root calcification. Pulmonic valve not well visualized. IVC at normal size with physiologic collapse . A color flow and spectral Doppler study was performed and revealed: Trace aortic insufficiency . Mitral inflow indicates normal left ventricular diastolic function. Trace mitral regurgitation. Mild to moderate tricuspid regurgitation. Tricuspid systolic velocities suggests peak right ventricular systolic pressure of 50mmHg,consistent with moderate pulmonary HTN.
== END 2018-11-26 12:25 | disposition home health service (06) | DRG 425 ==
LOC: EMR 22:27 → 2W 23:15 → EDBEDREQ 23:49 → EDBEDREQSVC 11-23 00:04 → EDBEDREQ 11-23 00:34 → 2E 11-25 06:32
PROC: 5A09357 Assistance with Respiratory Ventilation, Less than 24 Consecutive Hours, Continuous Positive Airway Pressure (ICD-10-PCS; principal; 2018-11-23)
PROC: 5A1D70Z Performance of Urinary Filtration, Intermittent, Less than 6 Hours Per Day (ICD-10-PCS; 2018-11-23)
DX: E87.70 Fluid overload, unspecified (principal); J96.01 Acute respiratory failure with hypoxia; I13.2 Hypertensive heart and chronic kidney disease with heart failure and with stage 5 chronic kidney disease, or end stage renal disease; D61.818 Other pancytopenia; N18.6 End stage renal disease; E11.22 Type 2 diabetes mellitus with diabetic chronic kidney disease; D63.8 Anemia in other chronic diseases classified elsewhere; I50.9 Heart failure, unspecified; Z88.0 Allergy status to penicillin; E78.5 Hyperlipidemia, unspecified; Z99.2 Dependence on renal dialysis; R07.9 Chest pain, unspecified; K52.9 Noninfective gastroenteritis and colitis, unspecified; Z79.82 Long term (current) use of aspirin
CPT/HCPCS: 36415; 36600; 71045; 80048; 80053; 81003; 82306; 82550; 82553; 82607; 82728; 82803; 82962; 83540; 83550; 83615; 83735; 83880; 83970; 84100; 84484; 85007; 85025; 85044; 85060; 85610; 86703; 86705; 86709; 86803; 87081; 87086; 87181; 87340; 93005; 93306; 93970; 94660; 94664; 96365; 96375; 99291

== ENCOUNTER 2019-07-05 13:38 | Inpatient (IN) | payer MEDICAID ==
[~2019-07-05] VITALS: Ht 157.5 cm; Wt 52.3 kg
[~2019-07-05 13:38] MED LIST changes: +ASPIRIN81 MG ORAL; +CALCIUM ACETAT667 MG PO; +COZAAR50 MG ORAL; +FLAGYL500 MG ORAL; +GUAIFENESI100 MG/5 M ORAL; +METOPROLOL TART50 M1 ORAL; +MUCINEX600 MG ORAL; +NIFEDIPINE ER60 M2 ORAL; +RENVELA800 MG ORAL; +TERAZOSIN HCL1 MG ORAL
[2019-07-05 14:10] VITALS: BP 155/64
--- NOTE | 2019-07-05 14:10 | NUR ---
ED Nurse Note: Patient came to ED from home stating that her right arm has been 10/10 painful since . Patient has AV shunt on R arm, bruit and thrill assessed. The pain is posterior to the AV shunt. Patient AxO x 4, no s/s of acute distress. Daughter at bedside.
--- NOTE | 2019-07-05 14:49 | Emergency Room Report ---
History of Present Illness General Chief Complaint: General Complaint Source: Patient Present Illness HPI Patient has a history of end-stage renal disease. She gets dialysis Friday. She went to dialysis today. She states that she has pain on the back of her right arm. She states this has been going on for about 2 days. She states that the location of the AV fistula feels fine. She has no pain in that location. All of her pain is in the back of her upper right arm and is very tender to palpation. She denies fever or chills. She denies nausea or vomiting. She has no other complaints. Allergies: Coded Allergies: PENICILLINS (Verified Allergy, Unknown, 03/23/18) Patient states feeling chills Patient History Past Medical History: see triage record, DM, HTN, CAD, renal disease, dialysis Social History: Denies: smoking, alcohol use, drug use Reviewed Nursing Documentation: PMH: Agreed; PSxH: Agreed Nursing Documentation-PMH Past Medical History: No History, Except For Hx Hypertension: Yes Hx Diabetes: Yes Hx Cancer: No Hx Gastrointestinal Problems: Yes Hx Dialysis: Yes Hx Neurological Problems: No Hx Cerebrovascular Accident: No Hx Transient Ischemic Attacks: No Hx Dementia: No Hx Alzheimer's Disease: No Hx Parkinson's Disease: No Hx Meningitis: No Hx Encephalitis: No Hx Seizures: No Hx Epilepsy: No Hx Multiple Sclerosis: No Hx Cerebral Palsy: No Hx Amyotrophic Lat Sclerosis: No Hx Guillian-[place] Syndrome: No Hx Paralysis: No Hx Peripheral Neuropathy: No Hx Spinal Cord Injury: No Hx Head Trauma: No Hx Traumatic Brain Injury: No Hx Memory Loss: No Hx Concentration Difficulty: No Hx Speech Problem: No Hx Tremors: No Hx Vertigo: No Hx Dizziness: No Hx Syncope: No Hx Headaches: Yes Hx Aphasia: No Hx Dysphasia: No Hx Numbness: No Hx Weakness: Yes Hx Fatigue: Yes Hx Neurologic Surgery: No Hx Brain Shunt: No Review of Systems All Other Systems: negative except mentioned in HPI Physical Exam Vital Signs Date Time Temp Pulse Resp B/P (MAP) Pulse Ox O2 Delivery O2 Flow Rate FiO2 07/05/19 14:05 99.0 65 16 155/64 (94) 99 Room Air Sp02 EP Interpretation: reviewed, normal General Appearance: no apparent distress, alert, GCS 15, non-toxic Head: normocephalic, atraumatic Eyes: bilateral eye normal inspection, bilateral eye PERRL ENT: hearing grossly normal, normal pharynx, no angioedema, normal voice Neck: full range of motion, supple/symm/no masses Respiratory: chest non-tender, lungs clear, normal breath sounds, no respiratory distress, no retraction, no accessory muscle use, speaking full sentences Cardiovascular #1: regular rate, rhythm, no edema Gastrointestinal: normal bowel sounds, non tender, soft, non-distended, no guarding, no rebound Rectal: deferred Musculoskeletal: back normal, normal range of motion, tender - R. posterior upper arm TTP in SQ tissue from above R. elbow to inferior to R. shoulder. + swelling, +warmth. Neurologic: alert, motor strength/tone normal, oriented x3, sensory intact, responsive, speech normal Psychiatric: judgement/insight normal, memory normal, mood/affect normal, no suicidal/homicidal ideation Skin: other - See above in MSK. Medical Decision Making Diagnostic Impression: Primary Impression: Cellulitis Additional Impression: ESRD (end stage renal disease) on dialysis ER Course This patient has cellulitis on the right upper extremity. She has a history of end-stage renal disease and diabetes and multiple chronic medical problems. Therefore, I felt this patient should be admitted for IV antibiotics. She is given IV antibiotics here in the emergency department and admitted for further evaluation and treatment. Laboratory Tests Test 07/05/19 16:00 White Blood Count 8.3 K/UL (4.8-10.8) Red Blood Count 3.98 M/UL (4.20-5.40) L Hemoglobin 11.2 G/DL (12.0-16.0) L Hematocrit 36.9 % (37.0-47.0) L Mean Corpuscular Volume 93 FL (80-99) Mean Corpuscular Hemoglobin 28.1 PG (27.0-31.0) Mean Corpuscular Hemoglobin Concent 30.4 G/DL (32.0-36.0) L Red Cell Distribution Width 14.1 % (11.6-14.8) Platelet Count 146 K/UL (150-450) L Mean Platelet Volume 7.9 FL (6.5-10.1) Neutrophils (%) (Auto) 79.3 % (45.0-75.0) H Lymphocytes (%) (Auto) 9.3 % (20.0-45.0) L Monocytes (%) (Auto) 8.2 % (1.0-10.0) Eosinophils (%) (Auto) 2.4 % (0.0-3.0) Basophils (%) (Auto) 0.9 % (0.0-2.0) Sodium Level 137 MMOL/L (136-145) Potassium Level 4.5 MMOL/L (3.5-5.1) Chloride Level 95 MMOL/L (98-107) L Carbon Dioxide Level 32 MMOL/L (21-32) Anion Gap 10 mmol/L (5-15) Blood Urea Nitrogen 30 mg/dL (7-18) H Creatinine 4.2 MG/DL (0.55-1.30) H Estimate Glomerular Filtration Rate mL/min (>60) Glucose Level 101 MG/DL (74-106) Lactic Acid Level 1.20 mmol/L (0.4-2.0) Calcium Level 9.2 MG/DL (8.5-10.1) Total Bilirubin 0.5 MG/DL (0.2-1.0) Aspartate Amino Transferase (AST) 24 U/L (15-37) Alanine Aminotransferase (ALT) 21 U/L (12-78) Alkaline Phosphatase 141 U/L (46-116) H Total Creatine Kinase 27 U/L (26-308) Creatine Kinase MB < 0.5 NG/ML (0.0-3.6) Creatine Kinase MB Relative Index 1.8 Total Protein 8.3 G/DL (6.4-8.2) H Albumin 3.5 G/DL (3.4-5.0) Globulin 4.8 g/dL Albumin/Globulin Ratio 0.7 (1.0-2.7) L EKG Diagnostic Results Rate: normal Rhythm: NSR ST Segments: no acute changes Rhythm Strip Diag. Results EP Interpretation: yes Rate: 70's Rhythm: NSR, no PVC's, no ectopy Chest X-Ray Diagnostic Results Chest X-Ray Diagnostic Results : Chest X-Ray Ordered: Yes # of Views/Limited/Complete: 1 View Indication: Other EP Interpretation: Yes Interpretation: no acute cardiopulmonary disease, other - cardiomegaly Impression: No acute disease Electronically Signed by: Alexandria Joe DO CT/MRI/US Diagnostic Results CT/MRI/US Diagnostic Results : Imaging Test Ordered: US RUE: Impression No DVT, AV fistula wnl and patent. Last Vital Signs Date Time Temp Pulse Resp B/P (MAP) Pulse Ox O2 Delivery O2 Flow Rate FiO2 07/05/19 14:05 99.0 65 16 155/64 (94) 99 Room Air Disposition: ADMITTED INPATIENT Condition: Stable Alexandria Joe DO Jul 05, 2019 14:49
--- NOTE | 2019-07-05 14:55 | NUR ---
ED Nurse Note: US at bedside.
--- NOTE | 2019-07-05 16:15 | Diagnostic Imaging Report ---
Indication: Right lower extremity pain and swelling. Technique: Duplex Doppler imaging of the veins in the right upper extremity performed. FINDINGS: The jugular and subclavian veins demonstrate normal color flow and waveform signal. No evidence of thrombosis. Continuation to the axillary vein, brachial, cephalic and basilic veins show no evidence of thrombosis with good compressibility, normal color flow and waveform analysis. There is an arteriovenous fistula present in the right upper arm which appears widely patent. IMPRESSION: No evidence of thrombosis involving the upper extremity in question. Arteriovenous fistula widely patent
--- NOTE | 2019-07-05 16:26 | Diagnostic Imaging Report ---
Indication: Dyspnea Comparison: 06/06/2019 A single view chest radiograph was obtained. Findings: Pulmonary vascular congestion is mild. Heart is enlarged. Bones are osteopenic. No pleural effusion seen. IMPRESSION: Mild CHF
[2019-07-05 16:30] VITALS: BP 157/63
[2019-07-05 17:24] LABS: BASOPHILS % (AUTO) 0.9 % (0.0-2.0); EOSINOPHILS % (AUTO) 2.4 % (0.0-3.0); HEMATOCRIT 36.9 % (37.0-47.0); HEMOGLOBIN 11.2 G/DL (12.0-16.0); LYMPHOCYTES % (AUTO) 9.3 % (20.0-45.0); MEAN CORPUSCULAR VOLUME 93 FL (80-99); MONOCYTES % (AUTO) 8.2 % (1.0-10.0); NEUTROPHILS % (AUTO) 79.3 % (45.0-75.0); PLATELET COUNT 146 K/UL (150-450); RED BLOOD COUNT 3.98 M/UL (4.20-5.40); RED CELL DISTRIBUTION WIDTH 14.1 % (11.6-14.8); WHITE BLOOD COUNT 8.3 K/UL (4.8-10.8)
[2019-07-05 17:42] LABS: ANION GAP 10 mmol/L (5-15); BLOOD UREA NITROGEN 30 mg/dL (7-18); CALCIUM 9.2 MG/DL (8.5-10.1); CARBON DIOXIDE 32 MMOL/L (21-32); CHLORIDE 95 MMOL/L (98-107); CREATININE 4.2 MG/DL (0.55-1.30); POTASSIUM 4.5 MMOL/L (3.5-5.1); SODIUM 137 MMOL/L (136-145)
[2019-07-05 17:50] LABS: ALANINE AMINOTRANSFERASE 21 U/L (12-78); ALBUMIN 3.5 G/DL (3.4-5.0); ALBUMIN/GLOBULIN RATIO 0.7 (1.0-2.7); ALKALINE PHOSPHATASE 141 U/L (46-116); ASPARTATE AMINO TRANSFERASE 24 U/L (15-37); BILIRUBIN,TOTAL 0.5 MG/DL (0.2-1.0); CKMB < 0.5 NG/ML (0.0-3.6); CREATINE KINASE 27 U/L (26-308)
[2019-07-05 18:25] VITALS: BP 150/66
--- NOTE | 2019-07-05 18:27 | NUR ---
ED Nurse Note: Report given to Mallory SALCEDO
--- NOTE | 2019-07-05 18:48 | NUR ---
NURSE NOTES: I received telephone report from ER nurse, Mateusz; patient arrived the floor around 1840 by [email or web address], accompanied by patient's daughter; patient alert x4, Bengali speaking; on room air, no sing of distress and shortness of breath; no sing of chest pain; IV Left-Hand 24G flushes well; patient doesn't have any belongings; patient's daughter gonna take the clothes to home; vitals taken upon arrival to the unit; Hemodialysis access on Left Upper Hand AV shunt; skin intact; Cellulitis on the AV shunt area; side rails up, bed at lowest position, breaks engaged, bed alarm on; call light within reach; will keep monitoring.
[2019-07-05 18:53] VITALS: BP 146/61
--- NOTE | 2019-07-05 19:11 | NUR ---
HAND-OFF: Report given to DENISSE May.
[2019-07-05] MEDS ORDERED: Albuterol/Ipratropium 3ml neb HHN PRN (19:45)
[2019-07-05] MEDS ORDERED: Miralax 17gm pkt ORAL PRN (19:45)
[2019-07-05] MEDS ORDERED: HYDROmorphone 1mg/ml Carpuject IVP PRN (19:45)
[2019-07-05 20:00] VITALS: BP 139/52
[2019-07-05] MEDS: Hydromorphone 0.5mg/0.5ml inj IVP PRN (20:37)
[2019-07-05] MEDS: Heparin 5000 units/ml inj SUBQ SCH (21:00)
[2019-07-05] MEDS: NovoLOG Insulin Flexpen SUBQ SCH (21:00)
--- NOTE | 2019-07-05 21:00 | NUR ---
NURSE NOTES: Received patient awake in bed, AOx4, daughter at the bedside. IV access asymptomatic, reinforced dressing, flushed with normal saline. Admission orders received. Bed low and locked, patient wearing non slip socks.
[2019-07-05] MEDS: Metoprolol Tartrate 50mg tab ORAL SCH (21:19)
[2019-07-05] MEDS: Losartan 50mg tab ORAL SCH (21:19)
[2019-07-05] MEDS: Terazosin 1mg cap ORAL SCH (21:19)
[2019-07-05] MEDS: Docusate 100mg cap ORAL SCH (21:22)
[2019-07-05] MEDS ORDERED: Vancomycin 1.25gm/NS Premix q24h IVPB SCH (22:00)
[2019-07-06] VITALS: BP 131/38
[2019-07-06 04:00] VITALS: BP 143/57
[2019-07-06] MEDS: NovoLOG Insulin Flexpen SUBQ SCH ×4 (06:30→20:06)
[2019-07-06] MEDS: Calcium Acetate 667mg Tab ORAL SCH ×3 (06:33→17:29)
[2019-07-06 06:52] LABS: BASOPHILS % (AUTO) 0.6 % (0.0-2.0); EOSINOPHILS % (AUTO) 3.5 % (0.0-3.0); HEMATOCRIT 34.3 % (37.0-47.0); HEMOGLOBIN 11.6 G/DL (12.0-16.0); LYMPHOCYTES % (AUTO) 13.9 % (20.0-45.0); MEAN CORPUSCULAR VOLUME 88 FL (80-99); MONOCYTES % (AUTO) 9.6 % (1.0-10.0); NEUTROPHILS % (AUTO) 72.4 % (45.0-75.0); PLATELET COUNT 144 K/UL (150-450); RED BLOOD COUNT 3.91 M/UL (4.20-5.40); RED CELL DISTRIBUTION WIDTH 13.5 % (11.6-14.8); WHITE BLOOD COUNT 7.1 K/UL (4.8-10.8)
[2019-07-06 07:08] LABS: ALANINE AMINOTRANSFERASE 35 U/L (12-78); ALBUMIN 3.2 G/DL (3.4-5.0); ALBUMIN/GLOBULIN RATIO 0.7 (1.0-2.7); ALKALINE PHOSPHATASE 241 U/L (46-116); ANION GAP 7 mmol/L (5-15); ASPARTATE AMINO TRANSFERASE 54 U/L (15-37); BILIRUBIN,TOTAL 0.5 MG/DL (0.2-1.0); BLOOD UREA NITROGEN 36 mg/dL (7-18); CALCIUM 8.8 MG/DL (8.5-10.1); CARBON DIOXIDE 34 MMOL/L (21-32); CHLORIDE 96 MMOL/L (98-107); CREATININE 5.3 MG/DL (0.55-1.30); POTASSIUM 4.7 MMOL/L (3.5-5.1); SODIUM 137 MMOL/L (136-145)
--- NOTE | 2019-07-06 07:29 | NUR ---
HAND-OFF: Report given to DENISSE Gilman.
--- NOTE | 2019-07-06 07:30 | NUR ---
NURSE NOTES: Received patient in bed awake. No SOB or acute distress. IV line intact and patent, no s/sx of infiltration. Dressing on right upper arm AV shunt dry and intact. No SOB or acute distress. HOB elevated. Bed locked in lowest position. Call light within reach. Will continue plan of care.
--- NOTE | 2019-07-06 07:48 | History and Physical ---
History of Present Illness General Date patient seen: Jul 06, 2019 Reason for Hospitalization: right arm pain Present Illness HPI 74 year old patient known to me from previous admission when she was treated for sepsis secondary to CAP, Klebsiella UTI/pyelonephritis. She has ESRD on hemodialysis, Friday, Friday, Friday, hypertension, hyperlipidemia, diabetes type 2 and pulmonary hypertension. Patient came into the ER stating that she has pain on the back of her right arm along with some swelling and redness. This is been going on for 2 days. She has been dialyzed without any issues through her AV fistula on the day of admission. There is no pain on the AV fistula site. Pain is only located to the back of the right arm. She denies any fever, chills, nausea, vomiting, chest pain, shortness of breath, palpitations. No insect bites or recent travels. Past medical history: ESRD on hemodialysis, diabetes mellitus, hypertension, hyperlipidemia, moderate pulmonary hypertension Past surgical history AV graft on right arm Family history: Hypertension Social history: She is from [facility], denies any toxic habits including cigarette alcohol or illicit drug use Allergies: Coded Allergies: PENICILLINS (Verified Allergy, Unknown, 03/23/18) Patient states feeling chills Medication History Scheduled Aspirin* (Aspirin*), 81 MG ORAL DAILY Calcium Acetate (Calcium Acetate), 1,340 MG PO TID, (Reported) Guaifenesin (Mucinex), 600 MG ORAL TWICE A DAY Losartan Potassium* (Cozaar*), 50 MG ORAL EVERY 12 HOURS Metoprolol Tartrate* (Metoprolol Tartrate*), 50 MG ORAL EVERY 12 HOURS, ( Reported) Metronidazole* (Flagyl*), 500 MG ORAL EVERY 8 HOURS Nifedipine* (Nifedipine Er*), 60 MG ORAL TWICE A DAY, (Reported) Sevelamer Carbonate (Renvela), 800 MG ORAL THREE TIMES A DAY Terazosin Hcl* (Hytrin*), 1 MG ORAL BEDTIME, (Reported) Scheduled PRN Guaifenesin* (Guaifenesin*), 100 MG ORAL Q4H PRN Patient History Healthcare decision maker N Resuscitation status Advanced Directive on File Review of Systems Constitutional: Reports: see HPI, other - right arm pain, back of the arm Eye: Denies: no symptoms, see HPI, eye pain, blurred vision, tearing, double vision, nose pain, nose congestion, acuity changes, discharge, other ENT: Denies: no symptoms, see HPI, ear pain, ear discharge, nose pain, nose congestion, throat pain, throat swelling, mouth pain, hearing loss, nasal discharge, other Respiratory: Denies: no symptoms, see HPI, cough, orthopnea, shortness of breath, stridor, wheezing, MENENDEZ, sputum, other Cardiovascular: Denies: no symptoms, see HPI, chest pain, edema, palpitations, syncope, PND, other Gastrointestinal: Denies: no symptoms, see HPI, abdominal pain, constipation, diarrhea, nausea, vomiting, melena, hematemesis, other Genitourinary: Denies: no symptoms, see HPI, discharge, dysuria, frequency, hematuria, pain, retention, incontinence, urgency, vag bleed/dc, other Musculoskeletal: Denies: no symptoms, see HPI, back pain, gout, joint pain, joint swelling, muscle pain, muscle stiffness, other Skin: Denies: no symptoms, see HPI, rash, change in color, change in hair/nails , dryness, lesions, other Psychiatric: Denies: no symptoms, see HPI, prior hx, anxiety, depressed feelings, emotional problems, SI, HI, hallucinations, other Neurological: Denies: no symptoms, see HPI, headache, numbness, paresthesia, seizure, tingling, tremors, focal weakness, syncope, dizziness, other Endocrine: Denies: no symptoms, see HPI, excessive sweating, flushing, intolerance to temperature, increased thirst, increased urine, unexplained weight loss, other Hematologic/Lymphatic: Denies: no symptoms, see HPI, anemia, blood clots, easy bleeding, easy bruising, swollen glands, diathesis, other Physical Exam General Appearance: no apparent distress, alert Lines, tubes and drains: peripheral, other - AV fistula right arm, no tenderness, + thrill HEENT: normocephalic, atraumatic, anicteric, mucous membranes moist, PERRL, EOMI Neck: non-tender, normal alignment, supple, normal inspection Respiratory/Chest: chest wall non-tender, lungs clear, normal breath sounds, no respiratory distress, no accessory muscle use Cardiovascular/Chest: normal peripheral pulses, normal rate, no gallop/murmur, no JVD Abdomen: normal bowel sounds, non tender, soft, no organomegaly, no mass Extremities: normal range of motion, non-tender, normal inspection, no calf tenderness, other - posterior right arm, +erythema, +edema, + tenderness Skin Exam: normal pigmentation, warm/dry 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, no motor/sensory deficits, alert, oriented x 3, responsive Musculoskeletal: normal muscle bulk Last 24 Hour Vital Signs Date Time Temp Pulse Resp B/P (MAP) Pulse Ox O2 Delivery O2 Flow Rate FiO2 07/06/19 04:00 98.2 73 18 143/57 (85) 94 07/06/19 00:26 Room Air 07/06/19 00:00 98.7 62 18 131/38 (69) 94 07/05/19 21:19 72 139/52 07/05/19 21:07 98.4 07/05/19 20:00 98.4 72 18 139/52 (81) 94 07/05/19 18:53 98.8 18 146/61 (89) 94 07/05/19 18:25 97.8 64 17 150/66 99 Room Air 07/05/19 16:30 98.0 68 18 157/63 99 Room Air 07/05/19 14:10 65 16 Room Air 07/05/19 14:10 98.7 65 16 155/64 99 Room Air 07/05/19 14:05 99.0 65 16 155/64 (94) 99 Room Air Intake and Output 07/05/19 07/06/19 19:00 07:00 Intake Total 0 ml Balance 0 ml Intake Oral 0 ml # Voids 1 # Bowel Movements 1 Laboratory Tests Test 07/05/19 16:00 07/06/19 05:25 White Blood Count 8.3 K/UL (4.8-10.8) 7.1 K/UL (4.8-10.8) Red Blood Count 3.98 M/UL (4.20-5.40) L 3.91 M/UL (4.20-5.40) L Hemoglobin 11.2 G/DL (12.0-16.0) L 11.6 G/DL (12.0-16.0) L Hematocrit 36.9 % (37.0-47.0) L 34.3 % (37.0-47.0) L Mean Corpuscular Volume 93 FL (80-99) 88 FL (80-99) Mean Corpuscular Hemoglobin 28.1 PG (27.0-31.0) 29.7 PG (27.0-31.0) Mean Corpuscular Hemoglobin Concent 30.4 G/DL (32.0-36.0) L 33.9 G/DL (32.0-36.0) Red Cell Distribution Width 14.1 % (11.6-14.8) 13.5 % (11.6-14.8) Platelet Count 146 K/UL (150-450) L 144 K/UL (150-450) L Mean Platelet Volume 7.9 FL (6.5-10.1) 6.4 FL (6.5-10.1) L Neutrophils (%) (Auto) 79.3 % (45.0-75.0) H 72.4 % (45.0-75.0) Lymphocytes (%) (Auto) 9.3 % (20.0-45.0) L 13.9 % (20.0-45.0) L Monocytes (%) (Auto) 8.2 % (1.0-10.0) 9.6 % (1.0-10.0) Eosinophils (%) (Auto) 2.4 % (0.0-3.0) 3.5 % (0.0-3.0) H Basophils (%) (Auto) 0.9 % (0.0-2.0) 0.6 % (0.0-2.0) Sodium Level 137 MMOL/L (136-145) 137 MMOL/L (136-145) Potassium Level 4.5 MMOL/L (3.5-5.1) 4.7 MMOL/L (3.5-5.1) Chloride Level 95 MMOL/L (98-107) L 96 MMOL/L (98-107) L Carbon Dioxide Level 32 MMOL/L (21-32) 34 MMOL/L (21-32) H Anion Gap 10 mmol/L (5-15) 7 mmol/L (5-15) Blood Urea Nitrogen 30 mg/dL (7-18) H 36 mg/dL (7-18) H Creatinine 4.2 MG/DL (0.55-1.30) H 5.3 MG/DL (0.55-1.30) H Estimat Glomerular Filtration Rate mL/min (>60) mL/min (>60) Glucose Level 101 MG/DL (74-106) 95 MG/DL (74-106) Lactic Acid Level 1.20 mmol/L (0.4-2.0) Calcium Level 9.2 MG/DL (8.5-10.1) 8.8 MG/DL (8.5-10.1) Total Bilirubin 0.5 MG/DL (0.2-1.0) 0.5 MG/DL (0.2-1.0) Aspartate Amino Transf (AST/SGOT) 24 U/L (15-37) 54 U/L (15-37) H Alanine Aminotransferase (ALT/SGPT) 21 U/L (12-78) 35 U/L (12-78) Alkaline Phosphatase 141 U/L (46-116) H 241 U/L (46-116) H Total Creatine Kinase 27 U/L (26-308) Creatine Kinase MB < 0.5 NG/ML (0.0-3.6) Creatine Kinase MB Relative Index 1.8 Total Protein 8.3 G/DL (6.4-8.2) H 7.6 G/DL (6.4-8.2) Albumin 3.5 G/DL (3.4-5.0) 3.2 G/DL (3.4-5.0) L Globulin 4.8 g/dL 4.4 g/dL Albumin/Globulin Ratio 0.7 (1.0-2.7) L 0.7 (1.0-2.7) L Uric Acid 4.2 MG/DL (2.6-7.2) Height (Feet): 5 Height (Inches): 2.00 Weight (Pounds): 130 Medications Current Medications Medications (Trade) Dose Ordered Sig/Oren Route PRN Reason Start Time Stop Time Status Last Admin Dose Admin Acetaminophen (Tylenol) 650 mg Q4H PRN ORAL Mild Pain (Pain Scale 1-3) 07/05/19 19:45 08/04/19 19:44 Acetaminophen (Tylenol) 650 mg Q4H PRN ORAL fever 07/05/19 19:45 08/04/19 19:44 Albuterol/ Ipratropium (Albuterol/ Ipratropium) 3 ml Q4H PRN HHN Shortness of Breath 07/05/19 19:45 07/10/19 19:44 Aspirin (ASA) 81 mg DAILY ORAL 07/06/19 09:00 08/05/19 08:59 Calcium Acetate (Phoslo) 1,334 mg TIAC ORAL 07/06/19 06:30 08/05/19 06:29 07/06/19 06:33 Dextrose (Dextrose 50%) 25 ml Q30M PRN IV Hypoglycemia 07/05/19 19:45 08/04/19 19:44 Dextrose (Dextrose 50%) 50 ml Q30M PRN IV Hypoglycemia 07/05/19 19:45 08/04/19 19:44 Docusate Sodium (Colace) 100 mg EVERY 12 HOURS ORAL 07/05/19 21:00 08/04/19 20:59 07/05/19 21:22 Heparin Sodium (Porcine) (Heparin 5000 units/ml) 5,000 units EVERY 12 HOURS SUBQ 07/05/19 21:00 08/04/19 20:59 Hydromorphone HCl (Dilaudid) 0.5 mg Q4H PRN IVP Moderate Pain (Pain Scale 4-6) 07/05/19 19:45 07/12/19 19:44 07/05/19 20:37 Hydromorphone HCl (Dilaudid) 1 mg Q4H PRN IVP Severe Pain (Pain Scale 7-10) 07/05/19 19:45 07/12/19 19:44 Insulin Aspart (NovoLOG) BEFORE MEALS AND HS SUBQ 07/05/19 21:00 08/04/19 20:59 Losartan Potassium (Cozaar) 50 mg EVERY 12 HOURS ORAL 07/05/19 21:00 08/04/19 20:59 07/05/19 21:19 Metoprolol Tartrate (Lopressor) 50 mg EVERY 12 HOURS ORAL 07/05/19 21:00 08/04/19 20:59 07/05/19 21:19 Nifedipine (Procardia XL) 60 mg TWICE A DAY ORAL 07/06/19 09:00 08/05/19 08:59 Ondansetron HCl (Zofran) 4 mg Q6H PRN IVP Nausea & Vomiting 07/05/19 19:45 08/04/19 19:44 Polyethylene Glycol (Miralax) 17 gm HSPRN PRN ORAL Constipation 07/05/19 19:45 08/04/19 19:44 Sevelamer Carbonate (Renvela) 800 mg THREE TIMES A DAY ORAL 07/06/19 09:00 08/05/19 08:59 Terazosin HCl (Hytrin) 1 mg BEDTIME ORAL 07/05/19 21:00 08/04/19 20:59 07/05/19 21:19 Vancomycin HCl (Vanco rx to dose) 1 ea DAILY PRN MISC Per rx protocol 07/05/19 20:00 08/04/19 19:59 Objective Narrative duplex upper extremity, arterial: No evidence of thrombosis involving the upper extremity in question. Arteriovenous fistula widely patent Assessment/Plan Problem List: (1) Cellulitis ICD Codes: L03.90 - Cellulitis, unspecified SNOMED: 821284118 Qualifiers: Qualified Codes: L03.113 - Cellulitis of right upper limb (2) ESRD (end stage renal disease) on dialysis ICD Codes: N18.6 - End stage renal disease; Z99.2 - Dependence on renal dialysis SNOMED: 049583222 (3) HTN (hypertension) ICD Codes: I10 - Essential (primary) hypertension SNOMED: 21783181 (4) Diabetes ICD Codes: E11.9 - Type 2 diabetes mellitus without complications SNOMED: 28529560 (5) Pulmonary hypertension ICD Codes: I27.20 - Pulmonary hypertension, unspecified SNOMED: 26121828 (6) Anemia ICD Codes: D64.9 - Anemia, unspecified SNOMED: 816837740 Assessment/Plan: 74-year-old female with ESRD on hemodialysis, hypertension, diabetes type 2, hyperlipidemia, pulmonary hypertension presented with right upper extremity cellulitis in the posterior aspect. #Right arm cellulitis IV vancomycin. Pharmacy to dose ID consultation Follow-up cultures #ESRD on hemodialysis Nephrology consult: Sevelamer calcium acetate #DM type II insulin sliding scale fsbg premeals and at bedtime HTN; losartan Metoprolol Nifedipine ASA vte ppx: heparin gi ppx: not indicated code status: full code I spent 71 minutes on this encounter. Greater than 50% spent on counseling care coordination. I spent an extra 35 minutes in reviewing chart and previous hospital records. Johan Bower M.D. Jul 06, 2019 07:48
[2019-07-06 08:00] VITALS: BP 178/66
[2019-07-06] MEDS: Heparin 5000 units/ml inj SUBQ SCH ×2 (09:00→20:07)
--- NOTE | 2019-07-06 09:00 | NUR ---
NURSE NOTES: Patient dressing is off. When asked who removed it, patient said it was a doctor in ponytail and blonde hair, slim figure. No active bleeding on site.
--- NOTE | 2019-07-06 09:11 | Consultation ---
History of Present Illness General Chief Complaint: General Complaint Reason for Consultation: ESRD disease on HD Present Illness HPI 74 year old female HTN, CAD, DM, ESRD on HD on HD M/WF Via RUE AVF- for the past 4 years. She presents with pain on the back of her right arm posterior to the fistula. She states this has been going on for about 2 days. She states that the location of the AV fistula feels fine. She has no pain in that location. All of her pain is in the back of her upper right arm and is very tender to palpation. She denies fever or chills. She denies nausea or vomiting. last HD yesterday K slightly elevated today will give kayexalate 30g x1 HD tomorrow RUE ultrasound IMPRESSION: No evidence of thrombosis involving the upper extremity in question. Arteriovenous fistula widely patent Allergies: Coded Allergies: PENICILLINS (Verified Allergy, Unknown, 03/23/18) Patient states feeling chills Medication History Scheduled Aspirin* (Aspirin*), 81 MG ORAL DAILY Calcium Acetate (Calcium Acetate), 1,340 MG PO TID, (Reported) Guaifenesin (Mucinex), 600 MG ORAL TWICE A DAY Losartan Potassium* (Cozaar*), 50 MG ORAL EVERY 12 HOURS Metoprolol Tartrate* (Metoprolol Tartrate*), 50 MG ORAL EVERY 12 HOURS, ( Reported) Metronidazole* (Flagyl*), 500 MG ORAL EVERY 8 HOURS Nifedipine* (Nifedipine Er*), 60 MG ORAL TWICE A DAY, (Reported) Sevelamer Carbonate (Renvela), 800 MG ORAL THREE TIMES A DAY Terazosin Hcl* (Hytrin*), 1 MG ORAL BEDTIME, (Reported) Scheduled PRN Guaifenesin* (Guaifenesin*), 100 MG ORAL Q4H PRN Patient History Healthcare decision maker N Resuscitation status Advanced Directive on File Review of Systems Constitutional: Reports: no symptoms Eye: Reports: no symptoms ENT: Reports: no symptoms Respiratory: Reports: no symptoms Cardiovascular: Reports: no symptoms Gastrointestinal: Reports: no symptoms Genitourinary: Reports: no symptoms Musculoskeletal: Reports: no symptoms Skin: Reports: rash Psychiatric: Reports: no symptoms Neurological: Reports: no symptoms Endocrine: Reports: no symptoms Hematologic/Lymphatic: Reports: no symptoms Physical Exam General Appearance: WD/WN, no apparent distress Neck: non-tender Abdomen: normal bowel sounds, non tender, soft, no mass Extremities: trace edema, other - RUE TTP on the posterior aspect of the arm, AVF with good thrill Neurologic: no motor/sensory deficits, abnormal gait, oriented x 3, responsive Last 24 Hour Vital Signs Date Time Temp Pulse Resp B/P (MAP) Pulse Ox O2 Delivery O2 Flow Rate FiO2 07/06/19 08:00 98.0 77 18 178/66 (103) 98 07/06/19 04:00 98.2 73 18 143/57 (85) 94 07/06/19 00:26 Room Air 07/06/19 00:00 98.7 62 18 131/38 (69) 94 07/05/19 21:19 72 139/52 07/05/19 21:07 98.4 07/05/19 20:00 98.4 72 18 139/52 (81) 94 07/05/19 18:53 98.8 18 146/61 (89) 94 07/05/19 18:25 97.8 64 17 150/66 99 Room Air 07/05/19 16:30 98.0 68 18 157/63 99 Room Air 07/05/19 14:10 65 16 Room Air 07/05/19 14:10 98.7 65 16 155/64 99 Room Air 07/05/19 14:05 99.0 65 16 155/64 (94) 99 Room Air Intake and Output 07/05/19 07/06/19 19:00 07:00 Intake Total 0 ml Balance 0 ml Intake Oral 0 ml # Voids 1 # Bowel Movements 1 Laboratory Tests Test 07/05/19 16:00 07/06/19 05:25 White Blood Count 8.3 K/UL (4.8-10.8) 7.1 K/UL (4.8-10.8) Red Blood Count 3.98 M/UL (4.20-5.40) L 3.91 M/UL (4.20-5.40) L Hemoglobin 11.2 G/DL (12.0-16.0) L 11.6 G/DL (12.0-16.0) L Hematocrit 36.9 % (37.0-47.0) L 34.3 % (37.0-47.0) L Mean Corpuscular Volume 93 FL (80-99) 88 FL (80-99) Mean Corpuscular Hemoglobin 28.1 PG (27.0-31.0) 29.7 PG (27.0-31.0) Mean Corpuscular Hemoglobin Concent 30.4 G/DL (32.0-36.0) L 33.9 G/DL (32.0-36.0) Red Cell Distribution Width 14.1 % (11.6-14.8) 13.5 % (11.6-14.8) Platelet Count 146 K/UL (150-450) L 144 K/UL (150-450) L Mean Platelet Volume 7.9 FL (6.5-10.1) 6.4 FL (6.5-10.1) L Neutrophils (%) (Auto) 79.3 % (45.0-75.0) H 72.4 % (45.0-75.0) Lymphocytes (%) (Auto) 9.3 % (20.0-45.0) L 13.9 % (20.0-45.0) L Monocytes (%) (Auto) 8.2 % (1.0-10.0) 9.6 % (1.0-10.0) Eosinophils (%) (Auto) 2.4 % (0.0-3.0) 3.5 % (0.0-3.0) H Basophils (%) (Auto) 0.9 % (0.0-2.0) 0.6 % (0.0-2.0) Sodium Level 137 MMOL/L (136-145) 137 MMOL/L (136-145) Potassium Level 4.5 MMOL/L (3.5-5.1) 4.7 MMOL/L (3.5-5.1) Chloride Level 95 MMOL/L (98-107) L 96 MMOL/L (98-107) L Carbon Dioxide Level 32 MMOL/L (21-32) 34 MMOL/L (21-32) H Anion Gap 10 mmol/L (5-15) 7 mmol/L (5-15) Blood Urea Nitrogen 30 mg/dL (7-18) H 36 mg/dL (7-18) H Creatinine 4.2 MG/DL (0.55-1.30) H 5.3 MG/DL (0.55-1.30) H Estimat Glomerular Filtration Rate mL/min (>60) mL/min (>60) Glucose Level 101 MG/DL (74-106) 95 MG/DL (74-106) Lactic Acid Level 1.20 mmol/L (0.4-2.0) Calcium Level 9.2 MG/DL (8.5-10.1) 8.8 MG/DL (8.5-10.1) Total Bilirubin 0.5 MG/DL (0.2-1.0) 0.5 MG/DL (0.2-1.0) Aspartate Amino Transf (AST/SGOT) 24 U/L (15-37) 54 U/L (15-37) H Alanine Aminotransferase (ALT/SGPT) 21 U/L (12-78) 35 U/L (12-78) Alkaline Phosphatase 141 U/L (46-116) H 241 U/L (46-116) H Total Creatine Kinase 27 U/L (26-308) Creatine Kinase MB < 0.5 NG/ML (0.0-3.6) Creatine Kinase MB Relative Index 1.8 Total Protein 8.3 G/DL (6.4-8.2) H 7.6 G/DL (6.4-8.2) Albumin 3.5 G/DL (3.4-5.0) 3.2 G/DL (3.4-5.0) L Globulin 4.8 g/dL 4.4 g/dL Albumin/Globulin Ratio 0.7 (1.0-2.7) L 0.7 (1.0-2.7) L Uric Acid 4.2 MG/DL (2.6-7.2) Height (Feet): 5 Height (Inches): 2.00 Weight (Pounds): 130 Medications Current Medications Medications (Trade) Dose Ordered Sig/Oren Route PRN Reason Start Time Stop Time Status Last Admin Dose Admin Acetaminophen (Tylenol) 650 mg Q4H PRN ORAL Mild Pain (Pain Scale 1-3) 07/05/19 19:45 08/04/19 19:44 Acetaminophen (Tylenol) 650 mg Q4H PRN ORAL fever 07/05/19 19:45 08/04/19 19:44 Albuterol/ Ipratropium (Albuterol/ Ipratropium) 3 ml Q4H PRN HHN Shortness of Breath 07/05/19 19:45 07/10/19 19:44 Aspirin (ASA) 81 mg DAILY ORAL 07/06/19 09:00 08/05/19 08:59 Calcium Acetate (Phoslo) 1,334 mg TIAC ORAL 07/06/19 06:30 08/05/19 06:29 07/06/19 06:33 Dextrose (Dextrose 50%) 25 ml Q30M PRN IV Hypoglycemia 07/05/19 19:45 08/04/19 19:44 Dextrose (Dextrose 50%) 50 ml Q30M PRN IV Hypoglycemia 07/05/19 19:45 08/04/19 19:44 Docusate Sodium (Colace) 100 mg EVERY 12 HOURS ORAL 07/05/19 21:00 08/04/19 20:59 07/05/19 21:22 Heparin Sodium (Porcine) (Heparin 5000 units/ml) 5,000 units EVERY 12 HOURS SUBQ 07/05/19 21:00 08/04/19 20:59 Hydromorphone HCl (Dilaudid) 0.5 mg Q4H PRN IVP Moderate Pain (Pain Scale 4-6) 07/05/19 19:45 07/12/19 19:44 07/05/19 20:37 Hydromorphone HCl (Dilaudid) 1 mg Q4H PRN IVP Severe Pain (Pain Scale 7-10) 07/05/19 19:45 07/12/19 19:44 Insulin Aspart (NovoLOG) BEFORE MEALS AND HS SUBQ 07/05/19 21:00 08/04/19 20:59 Losartan Potassium (Cozaar) 50 mg EVERY 12 HOURS ORAL 07/05/19 21:00 08/04/19 20:59 07/05/19 21:19 Metoprolol Tartrate (Lopressor) 50 mg EVERY 12 HOURS ORAL 07/05/19 21:00 08/04/19 20:59 07/05/19 21:19 Nifedipine (Procardia XL) 60 mg TWICE A DAY ORAL 07/06/19 09:00 08/05/19 08:59 Ondansetron HCl (Zofran) 4 mg Q6H PRN IVP Nausea & Vomiting 07/05/19 19:45 08/04/19 19:44 Polyethylene Glycol (Miralax) 17 gm HSPRN PRN ORAL Constipation 07/05/19 19:45 08/04/19 19:44 Sevelamer Carbonate (Renvela) 800 mg THREE TIMES A DAY ORAL 07/06/19 09:00 08/05/19 08:59 Terazosin HCl (Hytrin) 1 mg BEDTIME ORAL 07/05/19 21:00 08/04/19 20:59 07/05/19 21:19 Vancomycin HCl (Vanco rx to dose) 1 ea DAILY PRN MISC Per rx protocol 07/05/19 20:00 08/04/19 19:59 Assessment/Plan Assessment/Plan: #ESRD On HD m/w/f #mild hyperkalemia #cellulitis of RUE posterior aspect - AVF + thrill - no Clots #HTN - poorly controlled #DM #CAD -HD tomorrow- orders in - 2K bath - continue vanco for now - appreciate general surg recs - US reviewed- AVF with good flow- no clots - monitor SBC - monitor phlegmon formation - continue metop 50 BID - increased nifedipine to 90 BID - continue losartan 50BID - continue renvela 800 TID AC - will continue to follow Vonda Camilo M.D. Jul 06, 2019 09:11
[2019-07-06] MEDS ORDERED: Sodium Polystyrene Sulfonate 15gm Powder ORAL SCH (09:15)
[2019-07-06] MEDS: Docusate 100mg cap ORAL SCH ×2 (09:27→20:05)
[2019-07-06] MEDS: Losartan 50mg tab ORAL SCH ×2 (09:27→20:06)
[2019-07-06] MEDS: Aspirin Baby 81mg ORAL SCH (09:27)
[2019-07-06] MEDS: Metoprolol Tartrate 50mg tab ORAL SCH ×2 (09:27→20:05)
[2019-07-06 12:00] VITALS: BP 181/74
--- NOTE | 2019-07-06 14:02 | Consultation ---
History of Present Illness General Date patient seen: Jul 06, 2019 Reason for Hospitalization: General Complaint Present Illness HPI This is a 74-year-old female with history of end-stage renal disease who gets dialysis Friday and during recent dialysis states that she has pain on the back of her right arm posterior to the fistula. She states this has been going on for about 2 days. She states that the location of the AV fistula feels fine. She has no pain in that location. All of her pain is in the back of her upper right arm and is very tender to palpation. She denies fever or chills. She denies nausea or vomiting. She has no other complaints. Patient was admitted for further care and management. Surgery called to evaluate and assist with care. Patient seen, patient evaluated, chart reviewed. Patient identified to have tenderness cellulitis in the posterior proximal arm no abscess no fluctuance palpable fistula noted on the anterior medial aspect without correlation. No nausea vomiting fever chills. Otherwise stable. Allergies: Coded Allergies: PENICILLINS (Verified Allergy, Unknown, 03/23/18) Patient states feeling chills Medication History Scheduled Aspirin* (Aspirin*), 81 MG ORAL DAILY Calcium Acetate (Calcium Acetate), 1,340 MG PO TID, (Reported) Guaifenesin (Mucinex), 600 MG ORAL TWICE A DAY Losartan Potassium* (Cozaar*), 50 MG ORAL EVERY 12 HOURS Metoprolol Tartrate* (Metoprolol Tartrate*), 50 MG ORAL EVERY 12 HOURS, ( Reported) Metronidazole* (Flagyl*), 500 MG ORAL EVERY 8 HOURS Nifedipine* (Nifedipine Er*), 60 MG ORAL TWICE A DAY, (Reported) Sevelamer Carbonate (Renvela), 800 MG ORAL THREE TIMES A DAY Terazosin Hcl* (Hytrin*), 1 MG ORAL BEDTIME, (Reported) Scheduled PRN Guaifenesin* (Guaifenesin*), 100 MG ORAL Q4H PRN Patient History History Provided By: Patient, Medical Record, PMD Healthcare decision maker N Resuscitation status Advanced Directive on File Past Medical/Surgical History Past Medical/Surgical History: (1) Gastroenteritis (2) Bacteremia (3) Pulmonary hypertension (4) Diabetes (5) Sepsis (6) HTN (hypertension) (7) HCAP (healthcare-associated pneumonia) (8) Anemia (9) UTI due to Klebsiella species (10) Cellulitis (11) ESRD (end stage renal disease) on dialysis Review of Systems Review of Symptoms General ROS: no weight loss or fever Psychological ROS: no depression or mood changes, no memory loss Ophthalmic ROS: no visual changes or eye irritation ENT ROS: no nasal congestion, hearing loss, dizziness Allergy and Immunology ROS: no allergic symptoms or urticaria Hematological and Lymphatic ROS: no swollen glands, unusual bleeding or bruising Endocrine ROS: no polyuria, polydipsia, weight changes, temperature intolerance Respiratory ROS: no cough, shortness of breath, or wheezing Cardiovascular ROS: no chest pain or dyspnea on exertion Gastrointestinal ROS: denies abdominal pain, bright red blood in stool. Musculoskeletal ROS: Pain right upper extremity Neurological ROS: no TIA or stroke symptoms Dermatological ROS: no new or changing skin lesions, rashes or pruritis Physical Exam Physical Exam General appearance: alert, cooperative, no distress, appears stated age Head: Normocephalic, without obvious abnormality, atraumatic Eyes: conjunctivae/corneas clear. PERRL, EOM's intact. Fundi benign Throat: Lips, mucosa, and tongue normal. Teeth and gums normal Neck: supple, symmetrical, trachea midline, no adenopathy, thyroid: not enlarged, symmetric, no tenderness/mass/nodules, no carotid bruit and no JVD Lungs: clear to auscultation bilaterally Heart: regular rate and rhythm, S1, S2 normal, no murmur, click, rub or gallop Abdomen: soft, non-tender. Bowel sounds normal. No masses, no organomegaly Extremities: Patient has a right upper extremity AV graft brachiocephalic with a good proximal thrill but in the distal aspect has a pulse no thrill.. Patient has cellulitis depending on the posterior aspect proximal arm. Does not have correlation relation to the fistula. Tender warm no abscess no fluctuance Pulses: 2+ and symmetric Skin: Skin color, texture, turgor normal. No rashes or lesions Neurologic: Grossly normal Last 24 Hour Vital Signs Date Time Temp Pulse Resp B/P (MAP) Pulse Ox O2 Delivery O2 Flow Rate FiO2 07/06/19 12:00 98.7 76 18 181/74 (109) 95 07/06/19 09:27 77 178/66 07/06/19 09:27 77 178/66 07/06/19 09:27 17866 07/06/19 09:18 69 16 96 Room Air 21 07/06/19 09:00 Room Air 07/06/19 08:00 98.0 77 18 178/66 (103) 98 07/06/19 04:00 98.2 73 18 143/57 (85) 94 07/06/19 00:26 Room Air 07/06/19 00:00 98.7 62 18 131/38 (69) 94 07/05/19 21:19 72 139/52 07/05/19 21:07 98.4 07/05/19 20:00 98.4 72 18 139/52 (81) 94 07/05/19 18:53 98.8 18 146/61 (89) 94 07/05/19 18:25 97.8 64 17 150/66 99 Room Air 07/05/19 16:30 98.0 68 18 157/63 99 Room Air 07/05/19 14:10 65 16 Room Air 07/05/19 14:10 98.7 65 16 155/64 99 Room Air 07/05/19 14:05 99.0 65 16 155/64 (94) 99 Room Air Intake and Output 07/05/19 07/06/19 19:00 07:00 Intake Total 0 ml Balance 0 ml Intake Oral 0 ml # Voids 1 # Bowel Movements 1 Laboratory Tests Test 07/05/19 16:00 07/06/19 05:25 07/06/19 11:50 White Blood Count 8.3 K/UL (4.8-10.8) 7.1 K/UL (4.8-10.8) Red Blood Count 3.98 M/UL (4.20-5.40) L 3.91 M/UL (4.20-5.40) L Hemoglobin 11.2 G/DL (12.0-16.0) L 11.6 G/DL (12.0-16.0) L Hematocrit 36.9 % (37.0-47.0) L 34.3 % (37.0-47.0) L Mean Corpuscular Volume 93 FL (80-99) 88 FL (80-99) Mean Corpuscular Hemoglobin 28.1 PG (27.0-31.0) 29.7 PG (27.0-31.0) Mean Corpuscular Hemoglobin Concent 30.4 G/DL (32.0-36.0) L 33.9 G/DL (32.0-36.0) Red Cell Distribution Width 14.1 % (11.6-14.8) 13.5 % (11.6-14.8) Platelet Count 146 K/UL (150-450) L 144 K/UL (150-450) L Mean Platelet Volume 7.9 FL (6.5-10.1) 6.4 FL (6.5-10.1) L Neutrophils (%) (Auto) 79.3 % (45.0-75.0) H 72.4 % (45.0-75.0) Lymphocytes (%) (Auto) 9.3 % (20.0-45.0) L 13.9 % (20.0-45.0) L Monocytes (%) (Auto) 8.2 % (1.0-10.0) 9.6 % (1.0-10.0) Eosinophils (%) (Auto) 2.4 % (0.0-3.0) 3.5 % (0.0-3.0) H Basophils (%) (Auto) 0.9 % (0.0-2.0) 0.6 % (0.0-2.0) Sodium Level 137 MMOL/L (136-145) 137 MMOL/L (136-145) Potassium Level 4.5 MMOL/L (3.5-5.1) 4.7 MMOL/L (3.5-5.1) Chloride Level 95 MMOL/L (98-107) L 96 MMOL/L (98-107) L Carbon Dioxide Level 32 MMOL/L (21-32) 34 MMOL/L (21-32) H Anion Gap 10 mmol/L (5-15) 7 mmol/L (5-15) Blood Urea Nitrogen 30 mg/dL (7-18) H 36 mg/dL (7-18) H Creatinine 4.2 MG/DL (0.55-1.30) H 5.3 MG/DL (0.55-1.30) H Estimat Glomerular Filtration Rate mL/min (>60) mL/min (>60) Glucose Level 101 MG/DL (74-106) 95 MG/DL (74-106) Lactic Acid Level 1.20 mmol/L (0.4-2.0) Calcium Level 9.2 MG/DL (8.5-10.1) 8.8 MG/DL (8.5-10.1) Total Bilirubin 0.5 MG/DL (0.2-1.0) 0.5 MG/DL (0.2-1.0) Aspartate Amino Transf (AST/SGOT) 24 U/L (15-37) 54 U/L (15-37) H Alanine Aminotransferase (ALT/SGPT) 21 U/L (12-78) 35 U/L (12-78) Alkaline Phosphatase 141 U/L (46-116) H 241 U/L (46-116) H Total Creatine Kinase 27 U/L (26-308) Creatine Kinase MB < 0.5 NG/ML (0.0-3.6) Creatine Kinase MB Relative Index 1.8 Total Protein 8.3 G/DL (6.4-8.2) H 7.6 G/DL (6.4-8.2) Albumin 3.5 G/DL (3.4-5.0) 3.2 G/DL (3.4-5.0) L Globulin 4.8 g/dL 4.4 g/dL Albumin/Globulin Ratio 0.7 (1.0-2.7) L 0.7 (1.0-2.7) L Uric Acid 4.2 MG/DL (2.6-7.2) Random Vancomycin Level 22.1 ug/mL Height (Feet): 5 Height (Inches): 2.00 Weight (Pounds): 130 Medications Current Medications Medications (Trade) Dose Ordered Sig/Oren Route PRN Reason Start Time Stop Time Status Last Admin Dose Admin Acetaminophen (Tylenol) 650 mg Q4H PRN ORAL Mild Pain (Pain Scale 1-3) 07/05/19 19:45 08/04/19 19:44 Acetaminophen (Tylenol) 650 mg Q4H PRN ORAL fever 07/05/19 19:45 08/04/19 19:44 Albuterol/ Ipratropium (Albuterol/ Ipratropium) 3 ml Q4H PRN HHN Shortness of Breath 07/05/19 19:45 07/10/19 19:44 Aspirin (ASA) 81 mg DAILY ORAL 07/06/19 09:00 08/05/19 08:59 07/06/19 09:27 Calcium Acetate (Phoslo) 1,334 mg TIAC ORAL 07/06/19 06:30 08/05/19 06:29 07/06/19 12:01 Dextrose (Dextrose 50%) 25 ml Q30M PRN IV Hypoglycemia 07/05/19 19:45 08/04/19 19:44 Dextrose (Dextrose 50%) 50 ml Q30M PRN IV Hypoglycemia 07/05/19 19:45 08/04/19 19:44 Docusate Sodium (Colace) 100 mg EVERY 12 HOURS ORAL 07/05/19 21:00 08/04/19 20:59 07/06/19 09:27 Heparin Sodium (Porcine) (Heparin 5000 units/ml) 5,000 units EVERY 12 HOURS SUBQ 07/05/19 21:00 08/04/19 20:59 Hydromorphone HCl (Dilaudid) 0.5 mg Q4H PRN IVP Moderate Pain (Pain Scale 4-6) 07/05/19 19:45 07/12/19 19:44 07/05/19 20:37 Hydromorphone HCl (Dilaudid) 1 mg Q4H PRN IVP Severe Pain (Pain Scale 7-10) 07/05/19 19:45 07/12/19 19:44 Insulin Aspart (NovoLOG) BEFORE MEALS AND HS SUBQ 07/05/19 21:00 08/04/19 20:59 Losartan Potassium (Cozaar) 50 mg EVERY 12 HOURS ORAL 07/05/19 21:00 08/04/19 20:59 07/06/19 09:27 Metoprolol Tartrate (Lopressor) 50 mg EVERY 12 HOURS ORAL 07/05/19 21:00 08/04/19 20:59 07/06/19 09:27 Nifedipine (Procardia XL) 60 mg TWICE A DAY ORAL 07/06/19 09:00 08/05/19 08:59 07/06/19 09:27 Ondansetron HCl (Zofran) 4 mg Q6H PRN IVP Nausea & Vomiting 07/05/19 19:45 08/04/19 19:44 Polyethylene Glycol (Miralax) 17 gm HSPRN PRN ORAL Constipation 07/05/19 19:45 3/4/20 19:44 Sevelamer Carbonate (Renvela) 800 mg THREE TIMES A DAY ORAL 07/06/19 09:00 08/05/19 08:59 07/06/19 12:01 Terazosin HCl (Hytrin) 1 mg BEDTIME ORAL 07/05/19 21:00 08/04/19 20:59 07/05/19 21:19 Vancomycin HCl (Vanco rx to dose) 1 ea DAILY PRN MISC Per rx protocol 07/05/19 20:00 08/04/19 19:59 Assessment/Plan Problem List: (1) Cellulitis Assessment & Plan: Patient has a right upper extremity AV graft brachiocephalic with a good proximal thrill but in the distal aspect has a pulse no thrill.. Patient has cellulitis depending on the posterior aspect proximal arm. Does not have correlation relation to the fistula. Tender warm no abscess no fluctuance. No drainage identified. Afebrile, hemodynamically stable, labs okay Fistula functional ultrasound noted Cellulitis identified no abscess Antibiotics as per infectious disease No acute surgical intervention indicated recommended Keep right upper extremity elevated We will monitor over the course of the next 1 to 2 days to evaluate for potential abscess formation from current cellulitis phlegmon If improving can plan discharge on oral antibiotics Thank you will follow with recommendations The jugular and subclavian veins demonstrate normal color flow and waveform signal. No evidence of thrombosis. Continuation to the axillary vein, brachial, cephalic and basilic veins show no evidence of thrombosis with good compressibility, normal color flow and waveform analysis. There is an arteriovenous fistula present in the right upper arm which appears widely patent. IMPRESSION: No evidence of thrombosis involving the upper extremity in question. Arteriovenous fistula widely patent ICD Codes: L03.90 - Cellulitis, unspecified SNOMED: 617489975 Qualifiers: Qualified Codes: L03.113 - Cellulitis of right upper limb IsaacPanchito fleming Jul 06, 2019 14:01
[2019-07-06 16:00] VITALS: BP 152/70
--- NOTE | 2019-07-06 16:06 | NUR ---
CASE MANAGEMENT: INITIAL REVIEW 74YR OLD FEMALE FROM HOME CC: GENERAL COMPLAINT SI:ESRD ON HD . RIGHT ARM CELLULITIS 99.0 65 16 155/64 99% ON RA BUN 30 CREAT 4.2 ALK-PHOS 141 H/H 11.2/36.9 CL- 95 IS:IV DILAUDID X1 HYTRIN PO QHS CHEST X-RAY UPPER EXT ARTERY DUPLEX SCAN \: 4E MED SURG UNIT PLAN: DOSE VANCO X1 CASE MANAGEMENT:REVIEW 07/06/2019 SI:ESRD ON HD . RIGHT ARM CELLULITIS 98.0 77 18 178/66 98% ON RA BUN 36 CREAT 5.3 ALK-PHOS 241 H/H 11.6/34.3 CL- 96 AST 54 PLT 144 IS:KAYEXALATE PO X1 COZAAR PO BID LOPRESSOR PO BID PROCARDIA XL PO BID HYTRIN PO QHS RENVELA PO TID PHOSLO PO TIAC ASA PO QD IV DILAUDID Q4HR/PRN \: 4E MED SURG UNIT PLAN: HD IN AM START RENAL DIET
[2019-07-06] MEDS ORDERED: HydrALAZINE 25mg tab ORAL PRN (16:34)
--- NOTE | 2019-07-06 19:22 | NUR ---
NURSE NOTES: Received patient awake in bed, AOx4, daughter at the bedside. IV access asymptomatic, reinforced dressing, flushed with normal saline. Bed low and locked, patient wearing non slip socks. Dialysis scheduled for tomorrow by Dr Camilo.
--- NOTE | 2019-07-06 19:36 | NUR ---
HAND-OFF: Report given to nita.
[2019-07-06 20:00] VITALS: BP 170/63
[2019-07-06] MEDS: Terazosin 1mg cap ORAL SCH (20:06)
[2019-07-06] MEDS: Hydromorphone 0.5mg/0.5ml inj IVP PRN (20:45)
--- NOTE | 2019-07-06 21:30 | Consultation ---
DATE OF CONSULTATION: 07/06/2019 INFECTIOUS DISEASE CONSULTATION CONSULTING PHYSICIAN: Adriana Streeter M.D. ATTENDING PHYSICIAN: Pierre Devries M.D. REFERRING PHYSICIAN: Johan Bower M.D. REASON FOR CONSULTATION: Right arm cellulitis. CHIEF COMPLAINT: The patient's chief complaint coming in to the hospital is right arm cellulitis. HISTORY OF PRESENT ILLNESS: This is a very pleasant 74-year-old female, who comes in to [facility] with right arm swelling. She has a history of fistula to the right arm. The patient has right arm cellulitis and Infectious Disease consultation is requested. The patient was seen by Surgery. No abscess at this time is noted. By surgery also clinically, the patient does not seem to have an abscess, but does have a cellulitis of right arm with swelling and palpitations. The patient did have a venous duplex of the right upper extremity that showed no thrombus. Infectious Disease consultation is requested for antibiotic management. She is currently on vancomycin. MAR was noted. Orders were noted. Notes and records were reviewed. REVIEW OF SYSTEMS: CONSTITUTIONAL: She has no fevers. No chills. CARDIAC: No chest pain. GASTROINTESTINAL: No nausea, vomiting, or diarrhea. No abdominal pain. GENITOURINARY: No Gonzales. She is on hemodialysis. PULMONARY: No shortness of breath. SKIN: No rash. EXTREMITIES: She has right arm pain and swelling. No seizures. No dysphagia. No thrush. PAST MEDICAL HISTORY: The patient has a past medical history of end-stage renal disease, hemodialysis, right arm fistula. She has a history of hypertension and diabetes. No history of cancer or CVA mentioned. She also has history of fatigue and weakness in the past also. Other medical history, she has a past medical history of CAD. MEDICATIONS: Upon reviewing the MAR, she is on the following medications. She is on nifedipine, Procardia, hydralazine, aspirin, Renvela, calcium acetate, heparin, docusate, losartan, metoprolol, terazosin, insulin, vancomycin, metoprolol, terazosin, albuterol, hydromorphone as needed, acetaminophen as needed, and Zofran. Outside medications were noted and reconciliated. ALLERGIES: Penicillin. SOCIAL HISTORY: Negative for smoking, alcohol, or drug abuse. FAMILY HISTORY: Noncontributory. PHYSICAL EXAMINATION: VITAL SIGNS: Temperature is 98.1, pulse rate 73, respirations 17, blood pressure 152/70, and saturation 93%. GENERAL: Alert and responsive, in no distress. HEAD AND NECK: Oral exam, no thrush. Eye exam, no icterus. Normocephalic. Neck is supple. No JVD. No icterus or thrush. HEART: Regular. No gallop or murmur. ABDOMEN: Soft. Positive bowel sounds. Nontender. LUNGS: Clear bilaterally. No rhonchi or rales. SKIN: No rashes. MUSCULOSKELETAL: No effusion. Legs are without cellulitis. PERIPHERAL VASCULAR: No cyanosis or gangrene. : No Gonzales. LINE SITES: Without phlebitis. NEUROLOGIC: Intact and nonfocal. Alert and oriented. She is non-Maltese speaking. Right arm exam, she has redness and warmth of the right arm. She has a right arm fistula, but she also has right arm redness and warmth consistent with cellulitis to the right arm. LABORATORY DATA: White count 7.1,l and hemoglobin 11.6. Creatinine 5.3. LFTs noted. Ultrasound of the upper extremity showed no thrombus. Chest x-ray showed mild congestive heart failure. Blood cultures are pending. ASSESSMENT AND PLAN: 1. The patient has right arm cellulitis with redness. Most likely, pathogens with the MRSA Staph aureus and Streptococcus pyogenes. I do not believe she has a fistula infection clinically. Ultrasound showed no thrombus in the right upper extremity. At this time, we will continue vancomycin for gram-positive coverage. Given vancomycin for right arm cellulitis. Watch the patient clinically. The patient is being followed by Surgery and Renal Medicine. Continue vancomycin for right arm cellulitis. Watch the patient clinically. 2. End-stage renal disease, on hemodialysis. 3. Diabetes. 4. Hypertension. 5. CAD. 6. History of weakness and fatigue. 7. Anemia. 8. Diabetes and hypertension per primary care team. 9. End-stage renal disease, on hemodialysis. Treatment per Renal Medicine. 10. Continue treatment per primary consultants. 11. Allergy to penicillin. 12. Social history is negative. 13. Family history is noncontributory. 14. MAR is noted. 15. Case was discussed with RN. Adriana Streeter M.D. DR: TOBY JOB#: [id number] CC:
--- NOTE | 2019-07-06 22:10 | NUR ---
NURSE NOTES: Confirmed HD with [facility]. Spoke with John [phone]
[2019-07-07] VITALS: BP 165/79
[2019-07-07 04:00] VITALS: BP 154/56
[2019-07-07] MEDS: Calcium Acetate 667mg Tab ORAL SCH ×4 (05:42→16:17)
[2019-07-07] MEDS: NovoLOG Insulin Flexpen SUBQ SCH ×4 (06:10→21:00)
--- NOTE | 2019-07-07 07:17 | NUR ---
HAND-OFF: Report given to DENISSE Gilman.
[2019-07-07 07:35] LABS: ANION GAP 8 mmol/L (5-15); BLOOD UREA NITROGEN 50 mg/dL (7-18); CALCIUM 9.4 MG/DL (8.5-10.1); CARBON DIOXIDE 34 MMOL/L (21-32); CHLORIDE 94 MMOL/L (98-107); SODIUM 136 MMOL/L (136-145)
[2019-07-07 08:00] VITALS: BP 139/59
--- NOTE | 2019-07-07 08:13 | NUR ---
NURSE NOTES: Received patient in bed awake. No SOB or acute distress. No active bleeding on HANK AV shunt site. IV line intact and patent. Dialysis nurse from [facility] called to say that [facility] is doing patient's dialysis today. HOB elevated. Bed locked in lowest position. Call light within reach. Will continue plan of care.
[2019-07-07] MEDS: Aspirin Baby 81mg ORAL SCH (09:00)
[2019-07-07] MEDS: Heparin 5000 units/ml inj SUBQ SCH ×2 (09:00→21:00)
[2019-07-07] MEDS: Losartan 50mg tab ORAL SCH ×2 (09:00→22:19)
[2019-07-07] MEDS: Metoprolol Tartrate 50mg tab ORAL SCH ×2 (09:00→22:19)
--- NOTE | 2019-07-07 09:44 | General Progress Note ---
Assessment/Plan Problem List: (1) Cellulitis ICD Codes: L03.90 - Cellulitis, unspecified SNOMED: 522964707 Qualifiers: Qualified Codes: L03.113 - Cellulitis of right upper limb (2) ESRD (end stage renal disease) on dialysis ICD Codes: N18.6 - End stage renal disease; Z99.2 - Dependence on renal dialysis SNOMED: 247680685 (3) Diabetes ICD Codes: E11.9 - Type 2 diabetes mellitus without complications SNOMED: 79759601 (4) Pulmonary hypertension ICD Codes: I27.20 - Pulmonary hypertension, unspecified SNOMED: 30601506 (5) Anemia ICD Codes: D64.9 - Anemia, unspecified SNOMED: 053545454 (6) HTN (hypertension) ICD Codes: I10 - Essential (primary) hypertension SNOMED: 87308804 Status: stable Assessment/Plan: 74-year-old female with ESRD on hemodialysis, hypertension, diabetes type 2, hyperlipidemia, pulmonary hypertension presented with right upper extremity cellulitis in the posterior aspect. #Right arm cellulitis IV vancomycin. Pharmacy to dose ID consultation Follow-up cultures #ESRD on hemodialysis Nephrology consult: for hemodialysis today Sevelamer calcium acetate #DM type II insulin sliding scale fsbg premeals and at bedtime HTN; losartan Metoprolol Nifedipine ASA vte ppx: heparin gi ppx: not indicated code status: full code I spent 40 minutes on this encounter. >50% spent on counselling and care coordination. Subjective Date patient seen: Jul 07, 2019 ROS Limited/Unobtainable: No Constitutional: Denies: no symptoms, chills, diaphoresis, fever, malaise, weakness, other HEENT: Denies: no symptoms, eye pain, blurred vision, tearing, double vision, ear pain, ear discharge, nose pain, nose congestion, throat pain, throat swelling, mouth pain, mouth swelling, other Cardiovascular: Denies: no symptoms, chest pain, edema, irregular heart rate, lightheadedness, palpitations, syncope, other Respiratory: Denies: no symptoms, cough, orthopnea, shortness of breath, SOB with excertion, SOB at rest, sputum, stridor, wheezing, other Gastrointestinal/Abdominal: Denies: no symptoms, abdomen distended, abdominal pain, black stools, tarry stools, blood in stool, constipated, diarrhea, difficulty swallowing, nausea, poor appetite, poor fluid intake, rectal bleeding , vomiting, other Genitourinary: Denies: no symptoms, burning, discharge, frequency, flank pain, hematuria, incontinence, pain, urgency, other Neurologic/Psychiatric: Denies: no symptoms, anxiety, depressed, emotional problems, headache, numbness, paresthesia, pre-existing deficit, seizure, tingling, tremors, weakness, other Endocrine: Denies: no symptoms, excessive sweating, flushing, intolerance to cold, intolerance to heat, increased hunger, increased thirst, increased urine, unexplained weight gain, unexplained weight loss, other Hematologic/Lymphatic: Denies: no symptoms, anemia, easy bleeding, easy bruising, other Allergies: Coded Allergies: PENICILLINS (Verified Allergy, Unknown, 03/23/18) Patient states feeling chills Subjective seen and examined at bedside. arm pain and swelling better Objective Last 24 Hour Vital Signs Date Time Temp Pulse Resp B/P (MAP) Pulse Ox O2 Delivery O2 Flow Rate FiO2 07/07/19 08:00 97.7 67 17 139/59 (85) 100 07/07/19 04:00 98.4 61 17 154/56 (88) 92 07/07/19 00:45 165/79 07/07/19 00:00 98.2 62 17 165/79 (107) 92 07/06/19 21:21 Room Air 07/06/19 21:15 98.1 07/06/19 20:05 73 152/70 07/06/19 20:00 98.3 71 17 170/63 (98) 93 07/06/19 17:28 73 152/70 07/06/19 16:00 98.1 73 17 152/70 (97) 93 07/06/19 12:00 98.7 76 18 181/74 (109) 95 Intake and Output 07/06/19 07/07/19 19:00 07:00 Intake Total 10 ml 360 ml Balance 10 ml 360 ml Intake Oral 360 ml Other 10 ml # Bowel Movements 1 Laboratory Tests 07/06/19 11:50: Random Vancomycin Level 22.1, Hepatitis B Surface Antigen [Pending] 07/07/19 06:21: Sodium Level 136, Potassium Level 5.0, Chloride Level 94L, Carbon Dioxide Level 34H, Anion Gap 8, Blood Urea Nitrogen 50H, Creatinine 7.0H, Estimat Glomerular Filtration Rate , Glucose Level 100, Calcium Level 9.4, Calcium (Send out) [ Pending], Phosphorus Level 5.2H, Vitamin D 25-Hydroxy [Pending], 25-Hydroxy Vitamin D2 [Pending], 25-Hydroxy Vitamin D3 [Pending], Parathyroid Hormone ( Intact) [Pending] Height (Feet): 5 Height (Inches): 2.00 Weight (Pounds): 115 Objective General Appearance: no apparent distress, alert Lines, tubes and drains: peripheral, other - AV fistula right arm, no tenderness, + thrill HEENT: normocephalic, atraumatic, anicteric, mucous membranes moist, PERRL, EOMI Neck: non-tender, normal alignment, supple, normal inspection Respiratory/Chest: chest wall non-tender, lungs clear, normal breath sounds, no respiratory distress, no accessory muscle use Cardiovascular/Chest: normal peripheral pulses, normal rate, no gallop/murmur, no JVD Abdomen: normal bowel sounds, non tender, soft, no organomegaly, no mass Extremities: normal range of motion, non-tender, normal inspection, no calf tenderness, other - posterior right arm, +erythema, +edema, + tenderness. 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 Jul 07, 2019 09:44
[2019-07-07] MEDS: Docusate 100mg cap ORAL SCH ×2 (10:08→22:18)
[2019-07-07 12:00] VITALS: BP 144/63
--- NOTE | 2019-07-07 12:36 | Nephrology Progress Note ---
Assessment/Plan Plan #ESRD On HD m/w/f #cellulitis of RUE posterior aspect - AVF + thrill - no Clots #HTN - poorly controlled #DM #CAD -HD today - continue vanco for now - per ID - appreciate general surg recs - US reviewed- AVF with good flow- no clots - monitor CBC - monitor phlegmon formation - continue metop 50 BID - increased nifedipine to 90 BID - continue losartan 50BID - continue renvela 800 TID AC - will continue to follow Subjective Interval Events/Complaints arm pain much better BP stable plan for HD today Constitutional: Reports: no symptoms HEENT: Reports: no symptoms Genitourinary: Reports: no symptoms Neurologic/Psychiatric: Reports: no symptoms Objective Objective Last 24 Hour Vital Signs Date Time Temp Pulse Resp B/P (MAP) Pulse Ox O2 Delivery O2 Flow Rate FiO2 07/07/19 08:00 97.7 67 17 139/59 (85) 100 07/07/19 04:00 98.4 61 17 154/56 (88) 92 07/07/19 00:45 165/79 07/07/19 00:00 98.2 62 17 165/79 (107) 92 07/06/19 21:21 Room Air 07/06/19 21:15 98.1 07/06/19 20:05 73 152/70 07/06/19 20:00 98.3 71 17 170/63 (98) 93 07/06/19 17:28 73 152/70 07/06/19 16:00 98.1 73 17 152/70 (97) 93 Intake and Output 07/06/19 07/07/19 19:00 07:00 Intake Total 10 ml 360 ml Balance 10 ml 360 ml Intake Oral 360 ml Other 10 ml # Bowel Movements 1 Laboratory Tests 07/07/19 06:21: Sodium Level 136, Potassium Level 5.0, Chloride Level 94L, Carbon Dioxide Level 34H, Anion Gap 8, Blood Urea Nitrogen 50H, Creatinine 7.0H, Estimat Glomerular Filtration Rate , Glucose Level 100, Calcium Level 9.4, Calcium (Send out) [ Pending], Phosphorus Level 5.2H, Vitamin D 25-Hydroxy [Pending], 25-Hydroxy Vitamin D2 [Pending], 25-Hydroxy Vitamin D3 [Pending], Parathyroid Hormone ( Intact) [Pending] Height (Feet): 5 Height (Inches): 2.00 Weight (Pounds): 115 General Appearance: WD/WN, no apparent distress EENT: PERRL/EOMI Neck: non-tender Cardiovascular: normal peripheral pulses, normal rate, regular rhythm Respiratory/Chest: chest wall non-tender, lungs clear Abdomen: normal bowel sounds Extremities: other - right arm tenderness and erythema better Vonda Camilo M.D. Jul 07, 2019 12:36
--- NOTE | 2019-07-07 15:13 | Surgery Progress Note ---
Surgery Progress Note Subjective Symptoms: improved, tolerating diet, passing flatus, pain decreased Additional Comments receiving HD Objective Last 24 Hour Vital Signs Date Time Temp Pulse Resp B/P (MAP) Pulse Ox O2 Delivery O2 Flow Rate FiO2 07/07/19 12:00 97.2 63 18 144/63 (90) 95 07/07/19 09:00 Room Air 07/07/19 08:00 97.7 67 17 139/59 (85) 100 07/07/19 04:00 98.4 61 17 154/56 (88) 92 07/07/19 00:45 165/79 07/07/19 00:00 98.2 62 17 165/79 (107) 92 07/06/19 21:21 Room Air 07/06/19 21:15 98.1 07/06/19 20:05 73 152/70 07/06/19 20:00 98.3 71 17 170/63 (98) 93 07/06/19 17:28 73 152/70 07/06/19 16:00 98.1 73 17 152/70 (97) 93 I&O Intake and Output 07/06/19 07/07/19 19:00 07:00 Intake Total 10 ml 360 ml Balance 10 ml 360 ml Intake Oral 360 ml Other 10 ml # Bowel Movements 1 Cardiovascular: RSR Respiratory: clear Abdomen: soft, flat, non-tender, present bowel sounds Extremities: edema, tenderness, no cyanosis, other - improved Laboratory Tests Test 07/07/19 06:21 Sodium Level 136 MMOL/L (136-145) Potassium Level 5.0 MMOL/L (3.5-5.1) Chloride Level 94 MMOL/L (98-107) L Carbon Dioxide Level 34 MMOL/L (21-32) H Anion Gap 8 mmol/L (5-15) Blood Urea Nitrogen 50 mg/dL (7-18) H Creatinine 7.0 MG/DL (0.55-1.30) H Estimat Glomerular Filtration Rate mL/min (>60) Glucose Level 100 MG/DL (74-106) Calcium Level 9.4 MG/DL (8.5-10.1) Calcium (Send out) Pending Phosphorus Level 5.2 MG/DL (2.5-4.9) H Vitamin D 25-Hydroxy Pending 25-Hydroxy Vitamin D2 Pending 25-Hydroxy Vitamin D3 Pending Parathyroid Hormone (Intact) Pending Plan Problems: (1) Cellulitis Assessment & Plan: Patient has a right upper extremity AV graft brachiocephalic with a good proximal thrill but in the distal aspect has a pulse no thrill.. Patient has cellulitis depending on the posterior aspect proximal arm. Does not have correlation relation to the fistula. Tender warm no abscess no fluctuance. No drainage identified. Afebrile, hemodynamically stable, labs okay Fistula functional ultrasound noted Cellulitis identified no abscess Antibiotics as per infectious disease No acute surgical intervention indicated recommended Keep right upper extremity elevated We will monitor over the course of the next 1 to 2 days to evaluate for potential abscess formation from current cellulitis phlegmon If improving can plan discharge on oral antibiotics Thank you will follow with recommendations The jugular and subclavian veins demonstrate normal color flow and waveform signal. No evidence of thrombosis. Continuation to the axillary vein, brachial, cephalic and basilic veins show no evidence of thrombosis with good compressibility, normal color flow and waveform analysis. There is an arteriovenous fistula present in the right upper arm which appears widely patent. IMPRESSION: No evidence of thrombosis involving the upper extremity in question. Arteriovenous fistula widely patent Panchito Eric Jul 07, 2019 15:13
--- NOTE | 2019-07-07 15:41 | NUR ---
CASE MANAGEMENT:REVIEW 07/07/2019 SI:ESRD ON HD . RIGHT ARM CELLULITIS . DM . PULMONARY HTN . 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
[2019-07-07 16:00] VITALS: BP 156/72
--- NOTE | 2019-07-07 19:55 | NUR ---
HAND-OFF: Report given to
--- NOTE | 2019-07-07 19:56 | NUR ---
NURSE NOTES: Received patient in no apparent distress. A&OX4. IV site patent and intact. AV shunt noted on right upper arm. Family member at bedside. Bed in lowest position. Call light within reach. Will continue to monitor.
[2019-07-07 20:00] VITALS: BP 107/60
[2019-07-07] MEDS ORDERED: FAMOTIDINE20 MG ORAL (20:12)
[2019-07-07] MEDS ORDERED: GABAPENTIN100 MG ORAL (20:12)
[2019-07-07] MEDS: Terazosin 1mg cap ORAL SCH (22:19)
[2019-07-08] VITALS (7 sets, daily range): BP systolic 138–173; BP diastolic 56–67
[2019-07-08] MEDS: NovoLOG Insulin Flexpen SUBQ SCH ×4 (06:20→20:40)
--- NOTE | 2019-07-08 07:13 | NUR ---
HAND-OFF: Report given to Sol SALCEDO.
--- NOTE | 2019-07-08 07:20 | NUR ---
NURSE NOTES: Received patient in bed.patient AAOX4. No sign of distress, HL patent and intact. AV shunt noted on right upper arm.with good bruit and thrill sound noted, Family member at bedside. Bed in lowest position. Call light within reach. Will continue to monitor. karissa clay
[2019-07-08] MEDS: Losartan 50mg tab ORAL SCH ×2 (08:23→20:42)
[2019-07-08] MEDS: Aspirin Baby 81mg ORAL SCH (08:23)
[2019-07-08] MEDS: Metoprolol Tartrate 50mg tab ORAL SCH ×2 (08:23→20:42)
[2019-07-08] MEDS: Docusate 100mg cap ORAL SCH ×2 (08:23→20:41)
[2019-07-08] MEDS: Heparin 5000 units/ml inj SUBQ SCH ×2 (08:24→20:40)
[2019-07-08 08:55] LABS: ANION GAP 7 mmol/L (5-15); BLOOD UREA NITROGEN 24 mg/dL (7-18); CALCIUM 10.2 MG/DL (8.5-10.1); CARBON DIOXIDE 36 MMOL/L (21-32); CHLORIDE 98 MMOL/L (98-107); CREATININE 4.8 MG/DL (0.55-1.30); POTASSIUM 3.5 MMOL/L (3.5-5.1); SODIUM 141 MMOL/L (136-145)
[2019-07-08] MEDS ORDERED: Vancomycin 750mg/NS 275ml IVPB ONE ×2 (10:30)
--- NOTE | 2019-07-08 11:13 | General Progress Note ---
Assessment/Plan Problem List: (1) Cellulitis ICD Codes: L03.90 - Cellulitis, unspecified SNOMED: 158276491 Qualifiers: Qualified Codes: L03.113 - Cellulitis of right upper limb (2) ESRD (end stage renal disease) on dialysis ICD Codes: N18.6 - End stage renal disease; Z99.2 - Dependence on renal dialysis SNOMED: 505543970 (3) Diabetes ICD Codes: E11.9 - Type 2 diabetes mellitus without complications SNOMED: 72096414 (4) Pulmonary hypertension ICD Codes: I27.20 - Pulmonary hypertension, unspecified SNOMED: 56320918 (5) Anemia ICD Codes: D64.9 - Anemia, unspecified SNOMED: 218872162 (6) HTN (hypertension) ICD Codes: I10 - Essential (primary) hypertension SNOMED: 30418508 Status: stable Assessment/Plan: 74-year-old female with ESRD on hemodialysis, hypertension, diabetes type 2, hyperlipidemia, pulmonary hypertension presented with right upper extremity cellulitis in the posterior aspect. #Right arm cellulitis IV vancomycin. Pharmacy to dose ID consultation Follow-up cultures #ESRD on hemodialysis Nephrology consult: for hemodialysis today Sevelamer calcium acetate #DM type II insulin sliding scale fsbg premeals and at bedtime HTN; losartan Metoprolol Nifedipine ASA vte ppx: heparin gi ppx: not indicated code status: full code Disposition: DC home on oral antibiotics 2 after HD I spent 40 minutes on this encounter. >50% spent on counselling and care coordination. Subjective Date patient seen: Jul 08, 2019 ROS Limited/Unobtainable: No Constitutional: Denies: no symptoms, chills, diaphoresis, fever, malaise, weakness, other HEENT: Denies: no symptoms, eye pain, blurred vision, tearing, double vision, ear pain, ear discharge, nose pain, nose congestion, throat pain, throat swelling, mouth pain, mouth swelling, other Respiratory: Denies: no symptoms, cough, orthopnea, shortness of breath, SOB with excertion, SOB at rest, sputum, stridor, wheezing, other Gastrointestinal/Abdominal: Denies: no symptoms, abdomen distended, abdominal pain, black stools, tarry stools, blood in stool, constipated, diarrhea, difficulty swallowing, nausea, poor appetite, poor fluid intake, rectal bleeding , vomiting, other Genitourinary: Denies: no symptoms, burning, discharge, frequency, flank pain, hematuria, incontinence, pain, urgency, other Neurologic/Psychiatric: Denies: no symptoms, anxiety, depressed, emotional problems, headache, numbness, paresthesia, pre-existing deficit, seizure, tingling, tremors, weakness, other Endocrine: Denies: no symptoms, excessive sweating, flushing, intolerance to cold, intolerance to heat, increased hunger, increased thirst, increased urine, unexplained weight gain, unexplained weight loss, other Hematologic/Lymphatic: Denies: no symptoms, anemia, easy bleeding, easy bruising, other Allergies: Coded Allergies: PENICILLINS (Verified Allergy, Unknown, 03/23/18) Patient states feeling chills Subjective seen and examined at bedside. arm pain, erythema and swelling better Objective Last 24 Hour Vital Signs Date Time Temp Pulse Resp B/P (MAP) Pulse Ox O2 Delivery O2 Flow Rate FiO2 07/08/19 09:04 157/62 (93) 07/08/19 09:00 Room Air 07/08/19 08:23 92 173/64 07/08/19 08:23 173/64 07/08/19 08:22 92 173/64 07/08/19 08:00 98.1 92 16 173/64 (100) 96 07/08/19 04:00 98.1 64 18 156/64 (94) 96 07/08/19 00:00 98.2 63 20 138/56 (83) 98 07/07/19 22:19 70 107/60 07/07/19 22:19 107/60 07/07/19 21:00 Room Air 07/07/19 20:00 97.9 70 18 107/60 (76) 96 07/07/19 18:43 67 156/72 07/07/19 16:00 97.7 67 18 156/72 (100) 95 07/07/19 12:00 97.2 63 18 144/63 (90) 95 Intake and Output 07/07/19 07/08/19 19:00 07:00 Intake Total 840 ml Balance 840 ml Intake Oral 840 ml # Voids 3 2 Laboratory Tests 07/08/19 08:00: Sodium Level 141, Potassium Level 3.5, Chloride Level 98, Carbon Dioxide Level 36H, Anion Gap 7, Blood Urea Nitrogen 24H, Creatinine 4.8H, Estimat Glomerular Filtration Rate , Glucose Level 100, Calcium Level 10.2H, Random Vancomycin Level 15.0 Height (Feet): 5 Height (Inches): 2.00 Weight (Pounds): 115 Objective General Appearance: no apparent distress, alert Lines, tubes and drains: peripheral, other - AV fistula right arm, no tenderness, + thrill HEENT: normocephalic, atraumatic, anicteric, mucous membranes moist, PERRL, EOMI Neck: non-tender, normal alignment, supple, normal inspection Respiratory/Chest: chest wall non-tender, lungs clear, normal breath sounds, no respiratory distress, no accessory muscle use Cardiovascular/Chest: normal peripheral pulses, normal rate, no gallop/murmur, no JVD Abdomen: normal bowel sounds, non tender, soft, no organomegaly, no mass Extremities: normal range of motion, non-tender, normal inspection, no calf tenderness, other - posterior right arm, +erythema, +edema, + tenderness. improving Skin Exam: normal pigmentation, warm/dry Neurologic: steam meter reader II-XII grossly normal, no motor/sensory deficits, alert, oriented x 3, responsive Musculoskeletal: normal muscle bulk Johan Bower M.D. Jul 08, 2019 11:13
[2019-07-08] MEDS: Calcium Acetate 667mg Tab ORAL SCH ×2 (11:46→16:19)
--- NOTE | 2019-07-08 13:40 | NUR ---
CASE MANAGEMENT:REVIEW SI;CELLULITIS OF RUE 98.3 92 18 173/64 63% ON RA IS;VANCOMYCIN IV HEPARIN SUB Q TERAZOSIN DUO NEB HHN COZAAR PO LOPRESSOR PO MED SURG STATUS DCP;TO HOME
--- NOTE | 2019-07-08 15:43 | Surgery Progress Note ---
Surgery Progress Note Subjective Symptoms: improved, tolerating diet, passing flatus, BM, pain decreased Objective Last 24 Hour Vital Signs Date Time Temp Pulse Resp B/P (MAP) Pulse Ox O2 Delivery O2 Flow Rate FiO2 07/08/19 11:44 98.3 61 18 150/67 (94) 96 07/08/19 09:04 157/62 (93) 07/08/19 09:00 Room Air 07/08/19 08:23 92 173/64 07/08/19 08:23 173/64 07/08/19 08:22 92 173/64 07/08/19 08:18 93 18 96 Room Air 21 07/08/19 08:00 98.1 92 16 173/64 (100) 96 07/08/19 04:00 98.1 64 18 156/64 (94) 96 07/08/19 00:00 98.2 63 20 138/56 (83) 98 07/07/19 22:19 70 107/60 07/07/19 22:19 107/60 07/07/19 21:00 Room Air 07/07/19 20:00 97.9 70 18 107/60 (76) 96 07/07/19 18:43 67 156/72 07/07/19 16:00 97.7 67 18 156/72 (100) 95 I&O Intake and Output 07/07/19 07/08/19 19:00 07:00 Intake Total 840 ml Balance 840 ml Intake Oral 840 ml # Voids 3 2 Dressing: dry Wound: clean, dry Cardiovascular: RSR Respiratory: clear Abdomen: soft, non-tender, present bowel sounds Extremities: edema, tenderness - improved , no cyanosis, other Laboratory Tests Test 07/08/19 08:00 Sodium Level 141 MMOL/L (136-145) Potassium Level 3.5 MMOL/L (3.5-5.1) Chloride Level 98 MMOL/L (98-107) Carbon Dioxide Level 36 MMOL/L (21-32) H Anion Gap 7 mmol/L (5-15) Blood Urea Nitrogen 24 mg/dL (7-18) H Creatinine 4.8 MG/DL (0.55-1.30) H Estimat Glomerular Filtration Rate mL/min (>60) Glucose Level 100 MG/DL (74-106) Calcium Level 10.2 MG/DL (8.5-10.1) H Random Vancomycin Level 15.0 ug/mL Plan Problems: (1) Cellulitis Assessment & Plan: Patient has a right upper extremity AV graft brachiocephalic with a good proximal thrill but in the distal aspect has a pulse no thrill.. Patient has cellulitis depending on the posterior aspect proximal arm. Does not have correlation relation to the fistula. Tender warm no abscess no fluctuance. No drainage identified. Afebrile, hemodynamically stable, labs okay Fistula functional ultrasound noted Cellulitis identified no abscess Antibiotics as per infectious disease No acute surgical intervention indicated recommended Keep right upper extremity elevated We will monitor over the course of the next 1 to 2 days to evaluate for potential abscess formation from current cellulitis phlegmon If improving can plan discharge on oral antibiotics Thank you will follow with recommendations The jugular and subclavian veins demonstrate normal color flow and waveform signal. No evidence of thrombosis. Continuation to the axillary vein, brachial, cephalic and basilic veins show no evidence of thrombosis with good compressibility, normal color flow and waveform analysis. There is an arteriovenous fistula present in the right upper arm which appears widely patent. IMPRESSION: No evidence of thrombosis involving the upper extremity in question. Arteriovenous fistula widely patent Panchito Eric Jul 08, 2019 15:43
--- NOTE | 2019-07-08 16:47 | NUR ---
NURSE NOTES: received report from DENISSE Ayon. patient in bed. A&Ox4. verbally responsive. no respiratory distress noted on room air. no c/o pain at this time. IV on LFA 22g. saline lock intact. IV shunt for HD. ambulatory. bed in the lowest position and locked. call light within reach. will continue to provide plan of care.
--- NOTE | 2019-07-08 16:50 | NUR ---
HAND-OFF: Report given to DENISSE JALLOH Accordingly denisse clay.
--- NOTE | 2019-07-08 17:17 | Nephrology Progress Note ---
Assessment/Plan Plan #ESRD On HD m/w/f #cellulitis of RUE posterior aspect - AVF + thrill - no Clots #HTN - poorly controlled #DM #CAD -HD tomorrow - continue vanco for now - per ID - DC on oral abx when ok per ID - appreciate general surg recs - US reviewed- AVF with good flow- no clots - monitor CBC - monitor phlegmon formation - continue metop 50 BID - increased nifedipine to 90 BID - continue losartan 50BID - continue renvela 800 TID AC - will continue to follow Subjective Subjective Pain improving afeb no chills s/p HD yesterday Objective Objective Last 24 Hour Vital Signs Date Time Temp Pulse Resp B/P (MAP) Pulse Ox O2 Delivery O2 Flow Rate FiO2 07/08/19 16:01 98.0 63 18 155/57 (89) 96 07/08/19 11:44 98.3 61 18 150/67 (94) 96 07/08/19 09:04 157/62 (93) 07/08/19 09:00 Room Air 07/08/19 08:23 92 173/64 07/08/19 08:23 173/64 07/08/19 08:22 92 173/64 07/08/19 08:18 93 18 96 Room Air 21 07/08/19 08:00 98.1 92 16 173/64 (100) 96 07/08/19 04:00 98.1 64 18 156/64 (94) 96 07/08/19 00:00 98.2 63 20 138/56 (83) 98 07/07/19 22:19 70 107/60 07/07/19 22:19 107/60 07/07/19 21:00 Room Air 07/07/19 20:00 97.9 70 18 107/60 (76) 96 07/07/19 18:43 67 156/72 Intake and Output 07/07/19 07/08/19 19:00 07:00 Intake Total 840 ml Balance 840 ml Intake Oral 840 ml # Voids 3 2 Laboratory Tests 07/08/19 08:00: Sodium Level 141, Potassium Level 3.5, Chloride Level 98, Carbon Dioxide Level 36H, Anion Gap 7, Blood Urea Nitrogen 24H, Creatinine 4.8H, Estimat Glomerular Filtration Rate , Glucose Level 100, Calcium Level 10.2H, Random Vancomycin Level 15.0 Height (Feet): 5 Height (Inches): 2.00 Weight (Pounds): 115 General Appearance: WD/WN EENT: PERRL/EOMI Neck: non-tender Cardiovascular: normal peripheral pulses, normal rate, regular rhythm Respiratory/Chest: chest wall non-tender, lungs clear Abdomen: normal bowel sounds, non tender Neurologic: alert, oriented x 3 Vonda Camilo M.D. Jul 08, 2019 17:17
--- NOTE | 2019-07-08 17:20 | NUR ---
NURSE NOTES: Contacted [facility] nephrology and scheduled dialysis for jarod balderrama, 07/09, per MD Camilo' order.
--- NOTE | 2019-07-08 19:46 | NUR ---
NURSE NOTES: Patient in awake, alert and verbally responsive. Able to make needs known. Respiration is even and unlabored. No complaint of pain or discomfort noted at this time. IV site noted. Skin is intact. Noted with av shunt. Call light is at bedside. Will continue plan of care.
--- NOTE | 2019-07-08 19:53 | Infectious Diseases Prog Note ---
Assessment/Plan Assessment/Plan ASSESSMENT AND PLAN: 1. right arm cellulitis, ultrasound without thrombus - vancomycin - day # 4/ - blood cultures - negative - monitor labs - clinically improved, less cellulitis, less pain 2. End-stage renal disease, on hemodialysis. 3. Diabetes. 4. Hypertension. 5. CAD. 6. History of weakness and fatigue. 7. Anemia. 8. Diabetes and hypertension per primary care team. 9. End-stage renal disease, on hemodialysis. Treatment per Renal Medicine. 10. Continue treatment per primary consultants. 11. Allergy to penicillin. 12. Social history is negative. 13. Family history is noncontributory. 14. MAR is noted. 15. Case was discussed with RN. Subjective Constitutional: Reports: fatigue; Denies: fever, chills HEENT: Denies: congestion Respiratory: Denies: shortness of breath Cardiovascular: Denies: chest pain Gastrointestinal/Abdominal: Denies: vomiting, diarrhea Genitourinary: Denies: nocturia Neurologic: Denies: headache Psychiatric: Denies: depression Skin: Denies: rash Hematologic: Denies: bleeding Musculoskeletal: Reports: pain - less right arm pain Allergies: Coded Allergies: PENICILLINS (Verified Allergy, Unknown, 03/23/18) Patient states feeling chills Objective Vital Signs Last 24 Hour Vital Signs Date Time Temp Pulse Resp B/P (MAP) Pulse Ox O2 Delivery O2 Flow Rate FiO2 07/08/19 17:22 63 155/57 07/08/19 16:01 98.0 63 18 155/57 (89) 96 07/08/19 11:44 98.3 61 18 150/67 (94) 96 07/08/19 09:04 157/62 (93) 07/08/19 09:00 Room Air 07/08/19 08:23 92 173/64 07/08/19 08:23 173/64 07/08/19 08:22 92 173/64 07/08/19 08:18 93 18 96 Room Air 21 07/08/19 08:00 98.1 92 16 173/64 (100) 96 07/08/19 04:00 98.1 64 18 156/64 (94) 96 07/08/19 00:00 98.2 63 20 138/56 (83) 98 07/07/19 22:19 70 107/60 07/07/19 22:19 107/60 07/07/19 21:00 Room Air 07/07/19 20:00 97.9 70 18 107/60 (76) 96 Height (Feet): 5 Height (Inches): 2.00 Weight (Pounds): 115 General Appearance: no acute distress HEENT: normocephalic, atraumatic, anicteric, mucous membranes moist Respiratory/Chest: lungs clear, normal breath sounds, no respiratory distress, no accessory muscle use Cardiovascular: normal rate, regular rhythm, no gallop/murmur, no JVD Abdomen: normal bowel sounds, soft, non tender, no organomegaly, non distended Genitourinary: other - no darling, no cva pain Extremities: no cyanosis, other - right arm with less redness, swelling and pain Skin: no rash Neurologic/Psychiatric: research manager II-XII grossly normal, alert, oriented x 3, responsive Lymphatic: no neck adenopathy Musculoskeletal: no effusion Objective arm us - no thrombus, report noted chest x-ray - mild chf Microbiology Date/Time Source Procedure Growth Status 07/05/19 15:45 Blood Blood Culture - Preliminary NO GROWTH AFTER 48 HOURS Resulted Labs Test 07/06/19 05:25 07/06/19 11:50 07/07/19 06:21 07/08/19 08:00 White Blood Count 7.1 K/UL (4.8-10.8) Red Blood Count 3.91 M/UL (4.20-5.40) Hemoglobin 11.6 G/DL (12.0-16.0) Hematocrit 34.3 % (37.0-47.0) Mean Corpuscular Volume 88 FL (80-99) Mean Corpuscular Hemoglobin 29.7 PG (27.0-31.0) Mean Corpuscular Hemoglobin Concent 33.9 G/DL (32.0-36.0) Red Cell Distribution Width 13.5 % (11.6-14.8) Platelet Count 144 K/UL (150-450) Mean Platelet Volume 6.4 FL (6.5-10.1) Neutrophils (%) (Auto) 72.4 % (45.0-75.0) Lymphocytes (%) (Auto) 13.9 % (20.0-45.0) Monocytes (%) (Auto) 9.6 % (1.0-10.0) Eosinophils (%) (Auto) 3.5 % (0.0-3.0) Basophils (%) (Auto) 0.6 % (0.0-2.0) Sodium Level 137 MMOL/L (136-145) 136 MMOL/L (136-145) 141 MMOL/L (136-145) Potassium Level 4.7 MMOL/L (3.5-5.1) 5.0 MMOL/L (3.5-5.1) 3.5 MMOL/L (3.5-5.1) Chloride Level 96 MMOL/L (98-107) 94 MMOL/L (98-107) 98 MMOL/L (98-107) Carbon Dioxide Level 34 MMOL/L (21-32) 34 MMOL/L (21-32) 36 MMOL/L (21-32) Anion Gap 7 mmol/L (5-15) 8 mmol/L (5-15) 7 mmol/L (5-15) Blood Urea Nitrogen 36 mg/dL (7-18) 50 mg/dL (7-18) 24 mg/dL (7-18) Creatinine 5.3 MG/DL (0.55-1.30) 7.0 MG/DL (0.55-1.30) 4.8 MG/DL (0.55-1.30) Estimat Glomerular Filtration Rate mL/min (>60) mL/min (>60) mL/min (>60) Glucose Level 95 MG/DL (74-106) 100 MG/DL (74-106) 100 MG/DL (74-106) Uric Acid 4.2 MG/DL (2.6-7.2) Calcium Level 8.8 MG/DL (8.5-10.1) 9.4 MG/DL (8.5-10.1) 10.2 MG/DL (8.5-10.1) Total Bilirubin 0.5 MG/DL (0.2-1.0) Aspartate Amino Transf (AST/SGOT) 54 U/L (15-37) Alanine Aminotransferase (ALT/SGPT) 35 U/L (12-78) Alkaline Phosphatase 241 U/L (46-116) Total Protein 7.6 G/DL (6.4-8.2) Albumin 3.2 G/DL (3.4-5.0) Globulin 4.4 g/dL Albumin/Globulin Ratio 0.7 (1.0-2.7) Random Vancomycin Level 22.1 ug/mL 15.0 ug/mL Hepatitis B Surface Antigen Negative (NEGATIVE) Calcium (Send out) 9.1 mg/dL (8.7-10.3) Phosphorus Level 5.2 MG/DL (2.5-4.9) PTH (Intact) Whole Molecule Comment (.) Parathyroid Hormone (Intact) 114 pg/mL (15-65) Laboratory Tests Test 07/08/19 08:00 Sodium Level 141 MMOL/L (136-145) Potassium Level 3.5 MMOL/L (3.5-5.1) Chloride Level 98 MMOL/L (98-107) Carbon Dioxide Level 36 MMOL/L (21-32) H Anion Gap 7 mmol/L (5-15) Blood Urea Nitrogen 24 mg/dL (7-18) H Creatinine 4.8 MG/DL (0.55-1.30) H Estimat Glomerular Filtration Rate mL/min (>60) Glucose Level 100 MG/DL (74-106) Calcium Level 10.2 MG/DL (8.5-10.1) H Random Vancomycin Level 15.0 ug/mL Current Medications Medications (Trade) Dose Ordered Sig/Oren Route PRN Reason Start Time Stop Time Status Last Admin Dose Admin Acetaminophen (Tylenol) 650 mg Q4H PRN ORAL Mild Pain (Pain Scale 1-3) 07/05/19 19:45 08/04/19 19:44 07/08/19 16:20 Acetaminophen (Tylenol) 650 mg Q4H PRN ORAL fever 07/05/19 19:45 08/04/19 19:44 Albuterol/ Ipratropium (Albuterol/ Ipratropium) 3 ml Q4H PRN HHN Shortness of Breath 07/05/19 19:45 07/10/19 19:44 Aspirin (ASA) 81 mg DAILY ORAL 07/06/19 09:00 08/05/19 08:59 07/08/19 08:23 Calcium Acetate (Phoslo) 1,334 mg TIAC ORAL 07/06/19 06:30 08/05/19 06:29 07/08/19 16:19 Dextrose (Dextrose 50%) 25 ml Q30M PRN IV Hypoglycemia 07/05/19 19:45 08/04/19 19:44 Dextrose (Dextrose 50%) 50 ml Q30M PRN IV Hypoglycemia 07/05/19 19:45 08/04/19 19:44 Docusate Sodium (Colace) 100 mg EVERY 12 HOURS ORAL 07/05/19 21:00 08/04/19 20:59 07/08/19 08:23 Heparin Sodium (Porcine) (Heparin 5000 units/ml) 5,000 units EVERY 12 HOURS SUBQ 07/05/19 21:00 08/04/19 20:59 Hydralazine HCl (Apresoline) 25 mg QIDPRN PRN ORAL SBP > 160 07/06/19 16:34 08/05/19 16:33 07/07/19 00:45 Hydromorphone HCl (Dilaudid) 0.5 mg Q4H PRN IVP Moderate Pain (Pain Scale 4-6) 07/05/19 19:45 07/12/19 19:44 07/06/19 20:45 Hydromorphone HCl (Dilaudid) 1 mg Q4H PRN IVP Severe Pain (Pain Scale 7-10) 07/05/19 19:45 07/12/19 19:44 Insulin Aspart (NovoLOG) BEFORE MEALS AND HS SUBQ 07/05/19 21:00 08/04/19 20:59 07/06/19 20:06 Losartan Potassium (Cozaar) 50 mg EVERY 12 HOURS ORAL 07/05/19 21:00 08/04/19 20:59 07/08/19 08:23 Metoprolol Tartrate (Lopressor) 50 mg EVERY 12 HOURS ORAL 07/05/19 21:00 08/04/19 20:59 07/08/19 08:23 Nifedipine (Procardia XL) 90 mg TWICE A DAY ORAL 07/06/19 18:00 08/05/19 08:59 07/08/19 17:22 Ondansetron HCl (Zofran) 4 mg Q6H PRN IVP Nausea & Vomiting 07/05/19 19:45 08/04/19 19:44 Polyethylene Glycol (Miralax) 17 gm HSPRN PRN ORAL Constipation 07/05/19 19:45 08/04/19 19:44 Sevelamer Carbonate (Renvela) 800 mg THREE TIMES A DAY ORAL 07/06/19 09:00 08/05/19 08:59 07/08/19 17:22 Terazosin HCl (Hytrin) 1 mg BEDTIME ORAL 07/05/19 21:00 08/04/19 20:59 07/07/19 22:19 Vancomycin HCl (Vanco rx to dose) 1 ea DAILY PRN MISC Per rx protocol 07/05/19 20:00 08/04/19 19:59 Adriana Streeter MD Jul 08, 2019 19:53
[2019-07-08] MEDS: Terazosin 1mg cap ORAL SCH (20:42)
[2019-07-09] VITALS: BP 147/54
[2019-07-09 04:00] VITALS: BP 136/50
[2019-07-09] MEDS: Calcium Acetate 667mg Tab ORAL SCH ×3 (05:59→15:53)
[2019-07-09] MEDS: NovoLOG Insulin Flexpen SUBQ SCH ×3 (06:00→16:30)
[2019-07-09 06:52] LABS: BASOPHILS % (AUTO) 1.1 % (0.0-2.0); EOSINOPHILS % (AUTO) 12.7 % (0.0-3.0); HEMATOCRIT 33.3 % (37.0-47.0); LYMPHOCYTES % (AUTO) 25.6 % (20.0-45.0); MEAN CORPUSCULAR VOLUME 87 FL (80-99); MONOCYTES % (AUTO) 10.2 % (1.0-10.0); NEUTROPHILS % (AUTO) 50.5 % (45.0-75.0); PLATELET COUNT 151 K/UL (150-450); RED BLOOD COUNT 3.82 M/UL (4.20-5.40); RED CELL DISTRIBUTION WIDTH 13.3 % (11.6-14.8); WHITE BLOOD COUNT 3.7 K/UL (4.8-10.8)
--- NOTE | 2019-07-09 07:19 | NUR ---
HAND-OFF: Report given to DENISSE Kendrick.
[2019-07-09 07:29] LABS: ALANINE AMINOTRANSFERASE 18 U/L (12-78); ALBUMIN 3.1 G/DL (3.4-5.0); ALBUMIN/GLOBULIN RATIO 0.7 (1.0-2.7); ALKALINE PHOSPHATASE 151 U/L (46-116); ANION GAP 8 mmol/L (5-15); ASPARTATE AMINO TRANSFERASE 17 U/L (15-37); BILIRUBIN,TOTAL 0.4 MG/DL (0.2-1.0); BLOOD UREA NITROGEN 38 mg/dL (7-18); CALCIUM 9.4 MG/DL (8.5-10.1); CARBON DIOXIDE 34 MMOL/L (21-32); CHLORIDE 98 MMOL/L (98-107); POTASSIUM 4.1 MMOL/L (3.5-5.1); SODIUM 140 MMOL/L (136-145)
[2019-07-09 08:00] VITALS: BP 123/47
[2019-07-09] MEDS: Losartan 50mg tab ORAL SCH ×2 (08:36→15:52)
[2019-07-09] MEDS: Metoprolol Tartrate 50mg tab ORAL SCH ×2 (08:37→15:52)
[2019-07-09] MEDS: Aspirin Baby 81mg ORAL SCH (08:42)
[2019-07-09] MEDS: Docusate 100mg cap ORAL SCH (08:42)
[2019-07-09] MEDS: Heparin 5000 units/ml inj SUBQ SCH (08:46)
[2019-07-09] MEDS ORDERED: METOPROLOL TART50 MG ORAL (09:32)
[2019-07-09] MEDS ORDERED: RENVELA800 MG ORAL (09:32)
[2019-07-09] MEDS ORDERED: HYTRIN1 MG ORAL (09:32)
[2019-07-09] MEDS ORDERED: HYDRALAZINE HCL25 M1 ORAL (09:32)
[2019-07-09] MEDS ORDERED: CLEOCIN HCL300 MG PO (09:32)
[2019-07-09] MEDS ORDERED: NOVOLOG100 UNITS1 SUBQ (09:32)
[2019-07-09] MEDS ORDERED: COZAAR50 MG ORAL (09:32)
--- NOTE | 2019-07-09 09:38 | Discharge Summary ---
Discharge Summary Hospital Course Date of Admission Jul 05, 2019 at 17:30 Date of Discharge 07/09/2019 Admitting Diagnosis RIGHT ARM CELLULITIS HPI Jordin Lee is a 74 year old female who was admitted on Jul 05, 2019 at 17:30 for Right Arm Cellulitis Consultations ID, surgery, nephrology Procedures Hemodialysis Hospital Course 74-year-old female with ESRD on hemodialysis, hypertension, diabetes type 2, hyperlipidemia, pulmonary hypertension presented with right upper extremity cellulitis in the posterior aspect. #Right arm cellulitis IV vancomycin. Pharmacy to dose. Switch to Clindamycin 300 mg three times a day to finish total 7 days of therapy . D/w ID ID consultation Follow-up cultures, negative to date, 72 hrs #ESRD on hemodialysis Nephrology consult: for hemodialysis today before discharge Sevelamer calcium acetate #DM type II insulin sliding scale fsbg premeals and at bedtime #HTN losartan Metoprolol Nifedipine ASA vte ppx: heparin gi ppx: not indicated code status: full code Disposition: DC home on oral antibiotics 07/09 after HD Today she is well. alert and oriented, arm pain, swelling and erythema much better. She is stable to discharge home after HD. I spent 40 minutes on this encounter. >50% spent on counselling and care coordination. Discharge Medications New Medications: Clindamycin Hcl (Cleocin Hcl) 300 Mg Capsule 300 MG PO Q8HR for 5 Days, #15 CAP Hydralazine Hcl* (Hydralazine Hcl*) 25 Mg Tablet 25 MG ORAL QIDPRN PRN for 10 Days, #10 TAB Insulin Aspart (Novolog Flexpen) 100 Unit/1 Ml Insuln.pen 0 UNITS SUBQ BEFORE MEALS AND HS for 10 Days, #1 EA Losartan Potassium* (Cozaar*) 50 Mg Tablet 50 MG ORAL EVERY 12 HOURS for 10 Days, #20 TAB Metoprolol Tartrate* (Metoprolol Tartrate*) 50 Mg Tablet 50 MG ORAL EVERY 12 HOURS for 10 Days, #20 TAB Sevelamer Carbonate (Renvela) 800 Mg Tablet 800 MG ORAL THREE TIMES A DAY for 10 Days, #30 TAB Terazosin HCl (Terazosin HCl) 1 Mg Capsule 1 MG ORAL BEDTIME for 10 Days, #10 CAP Continued Medications: Aspirin* (Aspirin*) 81 Mg Tab.chew 81 MG ORAL DAILY for 10 Days, #10 TAB Calcium Acetate (Calcium Acetate) 667 Mg Tablet 1340 MG PO TID, TAB (This prescription has been renewed) Famotidine* (Pepcid 20mg tablet*) 20 Mg Tablet 20 MG ORAL TWICE A DAY for UNKNOWN, TAB 0 Refills (This prescription has been renewed) Gabapentin* (Gabapentin*) 100 Mg Capsule 100 MG ORAL before dialysis for UNKNOWN, CAP (This prescription has been renewed ) Nifedipine* (Nifedipine Er*) 60 Mg Tablet.er 60 MG ORAL TWICE A DAY, TAB (This prescription has been renewed) Discharge Condition Upon Discharge: stable Discharge Vital Signs Last Vital Signs Date Time Temp Pulse Resp B/P (MAP) Pulse Ox O2 Delivery O2 Flow Rate FiO2 07/09/19 08:37 66 123/47 07/09/19 08:00 97.5 18 100 07/09/19 07:10 Room Air 21 Discharge Disposition Patient was discharged to home with self-care Discharge Diagnoses: (1) Cellulitis (2) ESRD (end stage renal disease) on dialysis (3) HTN (hypertension) (4) Diabetes (5) Anemia (6) Pulmonary hypertension Johan Bower M.D. Jul 09, 2019 09:38
[2019-07-09] MEDS ORDERED: DiphenhydrAMINE & Zinc 28g Cream TOPIC PRN (10:30)
--- NOTE | 2019-07-09 10:33 | NUR ---
NURSE NOTES: recvd pt. Pt is AOx4 Persian speaklinda Addendum: 07/09/19 at 1037 by BEATRIZ FRENCH RN recvd pt. Pt is AOx4, Persian speaking, pt is on room air with no sign of distress. IV site is left FA 22g and locked. Pt has Right HD access. Recvd call from Bladimir from [facility] stating she will be doing HD around noon time. Plan for this patient is Discharge after HD complete. Bed in lowest locked position, call light within reach, will continue with plan of care
[2019-07-09] MEDS ORDERED: NS 500ML ONE (10:58)
[2019-07-09] MEDS ORDERED: Tubing IV Secondary IV ONE (10:58)
--- NOTE | 2019-07-09 10:59 | NUR ---
RD ASSESSMENT & RECOMMENDATIONS SEE CARE ACTIVITY FOR COMPLETE ASSESSMENT DAILY ESTIMATED NEEDS: Needs based on ESRD on HD 55kg 30-35 kcals/kg 5087-7857 total kcals 1.2-1.8 g protein/kg 64-95 g total protein Fluid per MD, on HD NUTRITION DIAGNOSIS: * Increased kcal and protein needs r/t renal dysfunction as evidenced by pt w/ ESRD on HD PO DIET RECOMMENDATIONS: Maintain Renal diet ADDITIONAL RECOMMENDATIONS: 1) Monitor BG and need for added CCHO diet (h/o DM) 2) Obtain a standing weight POST HD 3) Add HIGH PROTEIN snack BID in b/w meals 4) Nepro x1 tetra rae daily w/ variable PO intake (425kcal, 19g prot per rae) . .
[2019-07-09 12:00] VITALS: BP 168/63
--- NOTE | 2019-07-09 12:13 | Surgery Progress Note ---
Surgery Progress Note Subjective Symptoms: improved, pain absent, tolerating diet, passing flatus, BM Objective Last 24 Hour Vital Signs Date Time Temp Pulse Resp B/P (MAP) Pulse Ox O2 Delivery O2 Flow Rate FiO2 07/09/19 09:00 Room Air 07/09/19 08:37 66 123/47 07/09/19 08:37 66 123/47 07/09/19 08:36 123/47 07/09/19 08:00 97.5 66 18 123/47 (72) 100 07/09/19 07:10 62 18 92 Room Air 21 07/09/19 04:00 97.7 54 16 136/50 (78) 97 07/09/19 00:00 98.1 56 20 147/54 (85) 96 07/08/19 20:55 Room Air 07/08/19 20:42 65 154/60 07/08/19 20:42 154/60 07/08/19 20:03 88 18 95 Room Air 21 07/08/19 20:00 97.6 65 18 154/60 (91) 100 07/08/19 17:22 63 155/57 07/08/19 16:01 98.0 63 18 155/57 (89) 96 I&O Intake and Output 07/08/19 07/09/19 19:00 07:00 Intake Total 275 ml Balance 275 ml IV Total 275 ml Dressing: dry Wound: clean Cardiovascular: RSR Respiratory: clear Abdomen: soft, flat, non-tender, present bowel sounds Extremities: edema - improved , no tenderness, no cyanosis, pulses Laboratory Tests Test 07/09/19 05:15 White Blood Count 3.7 K/UL (4.8-10.8) L Red Blood Count 3.82 M/UL (4.20-5.40) L Hemoglobin 11.0 G/DL (12.0-16.0) L Hematocrit 33.3 % (37.0-47.0) L Mean Corpuscular Volume 87 FL (80-99) Mean Corpuscular Hemoglobin 28.9 PG (27.0-31.0) Mean Corpuscular Hemoglobin Concent 33.2 G/DL (32.0-36.0) Red Cell Distribution Width 13.3 % (11.6-14.8) Platelet Count 151 K/UL (150-450) Mean Platelet Volume 6.1 FL (6.5-10.1) L Neutrophils (%) (Auto) 50.5 % (45.0-75.0) Lymphocytes (%) (Auto) 25.6 % (20.0-45.0) Monocytes (%) (Auto) 10.2 % (1.0-10.0) H Eosinophils (%) (Auto) 12.7 % (0.0-3.0) H Basophils (%) (Auto) 1.1 % (0.0-2.0) Erythrocyte Sedimentation Rate 39 MM/HR (0-30) H Sodium Level 140 MMOL/L (136-145) Potassium Level 4.1 MMOL/L (3.5-5.1) Chloride Level 98 MMOL/L (98-107) Carbon Dioxide Level 34 MMOL/L (21-32) H Anion Gap 8 mmol/L (5-15) Blood Urea Nitrogen 38 mg/dL (7-18) H Creatinine 6.0 MG/DL (0.55-1.30) H Estimat Glomerular Filtration Rate mL/min (>60) Glucose Level 94 MG/DL (74-106) Calcium Level 9.4 MG/DL (8.5-10.1) Total Bilirubin 0.4 MG/DL (0.2-1.0) Aspartate Amino Transf (AST/SGOT) 17 U/L (15-37) Alanine Aminotransferase (ALT/SGPT) 18 U/L (12-78) Alkaline Phosphatase 151 U/L (46-116) H C-Reactive Protein, Quantitative 2.7 mg/dL (0.00-0.90) H Total Protein 7.4 G/DL (6.4-8.2) Albumin 3.1 G/DL (3.4-5.0) L Globulin 4.3 g/dL Albumin/Globulin Ratio 0.7 (1.0-2.7) L Plan Problems: (1) Cellulitis Assessment & Plan: Patient has a right upper extremity AV graft brachiocephalic with a good proximal thrill but in the distal aspect has a pulse no thrill.. Patient has cellulitis depending on the posterior aspect proximal arm. Does not have correlation relation to the fistula. Tender warm no abscess no fluctuance. No drainage identified. improving d/c planning Afebrile, hemodynamically stable, labs okay Fistula functional ultrasound noted Cellulitis identified no abscess Antibiotics as per infectious disease No acute surgical intervention indicated recommended Keep right upper extremity elevated We will monitor over the course of the next 1 to 2 days to evaluate for potential abscess formation from current cellulitis phlegmon If improving can plan discharge on oral antibiotics Thank you will follow with recommendations The jugular and subclavian veins demonstrate normal color flow and waveform signal. No evidence of thrombosis. Continuation to the axillary vein, brachial, cephalic and basilic veins show no evidence of thrombosis with good compressibility, normal color flow and waveform analysis. There is an arteriovenous fistula present in the right upper arm which appears widely patent. IMPRESSION: No evidence of thrombosis involving the upper extremity in question. Arteriovenous fistula widely patent Panchito Eric Jul 09, 2019 12:13
--- NOTE | 2019-07-09 12:33 | Nephrology Progress Note ---
Assessment/Plan Plan #ESRD On HD m/w/f #cellulitis of RUE posterior aspect - AVF + thrill - no Clots #HTN - poorly controlled #DM #CAD -HD today - continue vanco for now - per ID - DC on oral abx when ok per ID - appreciate general surg recs - US reviewed- AVF with good flow- no clots - monitor CBC - monitor phlegmon formation - continue metop 50 BID - increased nifedipine to 90 BID - continue losartan 50BID - continue renvela 800 TID AC - will continue to follow Subjective Subjective minimal pain afeb no chills plan for HD today Objective Objective Last 24 Hour Vital Signs Date Time Temp Pulse Resp B/P (MAP) Pulse Ox O2 Delivery O2 Flow Rate FiO2 07/09/19 09:00 Room Air 07/09/19 08:37 66 123/47 07/09/19 08:37 66 123/47 07/09/19 08:36 123/47 07/09/19 08:00 97.5 66 18 123/47 (72) 100 07/09/19 07:10 62 18 92 Room Air 21 07/09/19 04:00 97.7 54 16 136/50 (78) 97 07/09/19 00:00 98.1 56 20 147/54 (85) 96 07/08/19 20:55 Room Air 07/08/19 20:42 65 154/60 07/08/19 20:42 154/60 07/08/19 20:03 88 18 95 Room Air 21 07/08/19 20:00 97.6 65 18 154/60 (91) 100 07/08/19 17:22 63 155/57 07/08/19 16:01 98.0 63 18 155/57 (89) 96 Intake and Output 07/08/19 07/09/19 19:00 07:00 Intake Total 275 ml Balance 275 ml IV Total 275 ml Laboratory Tests 07/09/19 05:15: White Blood Count 3.7L, Red Blood Count 3.82L, Hemoglobin 11.0L, Hematocrit 33.3L, Mean Corpuscular Volume 87, Mean Corpuscular Hemoglobin 28.9, Mean Corpuscular Hemoglobin Concent 33.2, Red Cell Distribution Width 13.3, Platelet Count 151, Mean Platelet Volume 6.1L, Neutrophils (%) (Auto) 50.5, Lymphocytes ( %) (Auto) 25.6, Monocytes (%) (Auto) 10.2H, Eosinophils (%) (Auto) 12.7H, Basophils (%) (Auto) 1.1, Erythrocyte Sedimentation Rate 39H, Sodium Level 140, Potassium Level 4.1, Chloride Level 98, Carbon Dioxide Level 34H, Anion Gap 8, Blood Urea Nitrogen 38H, Creatinine 6.0H, Estimat Glomerular Filtration Rate , Glucose Level 94, Calcium Level 9.4, Total Bilirubin 0.4, Aspartate Amino Transf (AST/SGOT) 17, Alanine Aminotransferase (ALT/SGPT) 18, Alkaline Phosphatase 151H, C-Reactive Protein, Quantitative 2.7H, Total Protein 7.4, Albumin 3.1L, Globulin 4.3, Albumin/Globulin Ratio 0.7L Height (Feet): 5 Height (Inches): 2.00 Weight (Pounds): 115 Vonda Camilo M.D. Jul 09, 2019 12:33
--- NOTE | 2019-07-09 12:43 | NUR ---
*-* INSURANCE*-* ALL AVAILABLE CLINICALS FAXED TO [facility]: KESHAV F: P:
--- NOTE | 2019-07-09 15:55 | NUR ---
NURSE NOTES: BP elevated per dialysis nurse Bladimir. 201/76. BP meds ok to give per Bladimir RN
[2019-07-09 16:00] VITALS: BP 105/67
== END 2019-07-09 18:34 | disposition home or self-care (01) | DRG 602 ==
LOC: EMR 16:34 → 4E 17:30 → EDBEDREQ 17:45
DX: L03.113 Cellulitis of right upper limb (principal); N18.6 End stage renal disease; I12.0 Hypertensive chronic kidney disease with stage 5 chronic kidney disease or end stage renal disease; D64.9 Anemia, unspecified; E11.9 Type 2 diabetes mellitus without complications; Z88.0 Allergy status to penicillin; Z79.82 Long term (current) use of aspirin; I27.20 Pulmonary hypertension, unspecified; E11.22 Type 2 diabetes mellitus with diabetic chronic kidney disease; Z99.2 Dependence on renal dialysis; I25.10 Atherosclerotic heart disease of native coronary artery without angina pectoris; E87.5 Hyperkalemia
CPT/HCPCS: 36415; 71045; 80048; 80053; 80202; 82306; 82550; 82553; 82962; 83605; 83970; 84100; 84550; 85025; 85651; 86140; 86706; 87040; 93005; 93931; 94664; 99285; J1815